=== PATIENT | male | born 1990 | race Caucasian/White ===

== ENCOUNTER 2023-12-28 12:00 | Inpatient (IN) | payer OTHER, SELFPAY ==
[2023-12-26] VITALS (7 sets, daily range): BP systolic 127–170; BP diastolic 88–105; BMI 23.8
[2023-12-26 16:24] LABS: % Basophils 0.5 % (0-2); % Immature Granulocytes 0.1 % (0-0.5); % Lymphocytes 13.7 % (20.5-51.1); % Monocytes 6.5 % (1.7-9.3); % Neutrophils 78.2 % (42.2-75.2); Absolute Eosinophils 0.1 10^3/uL (0-0.7); Absolute Lymphocytes 1.1 10^3/uL (1.2-3.4); Absolute Monocytes 0.5 10^3/uL (0.1-0.6); Absolute Neutrophils 6.1 10^3/uL (1.4-6.5); Hematocrit 45.4 % (39.0-52.0); Hemoglobin 15.9 g/dL (13.0-18.0); Mean Corpuscular Hgb 30.9 pg (27.0-31.0); Mean Corpuscular Volume 88.3 fL (80.0-94.0); Mean Platelet Volume 9.6 fL (7.4-10.4); Nucleated Red Blood Cells % 0 % (-); Platelet Count 210 10^3/uL (130-400); Red Blood Cell Count 5.14 10^6/uL (4.70-6.10); Red Cell Dist. Width 11.9 % (11.5-14.5); White Blood Cell Count 7.8 10^3/uL (4.8-10.8)
[2023-12-26 16:38] LABS: ALT (SGPT) 26 U/L (0-50); AST (SGOT) 29 U/L (17-59); Albumin 4.7 g/dl (3.5-5.0); Alkaline Phosphatase 78 U/L (38-126); Blood Urea Nitrogen 12 mg/dl (9-20); Calcium 9.9 mg/dl (8.4-10.2); Carbon Dioxide 26 mmol/L (22-30); Chloride 101 mmol/L (98-107); Glucose 145 mg/dl (70-99); Magnesium 2.1 mg/dl (1.6-2.3); Potassium 4.1 mmol/L (3.5-5.1); Sodium 137 mmol/L (135-145); Total Bilirubin 0.5 mg/dl (0.2-1.3); Total Protein 7.1 g/dl (6.3-8.2); eGFR > 60.00
[2023-12-26 16:41] LABS: Erythrocyte Sed Rate 1 mm/hour (0-20)
[2023-12-26 17:26] LABS: Vitamin B12 417 pg/ml (239-931)
--- NOTE | 2023-12-26 18:38 | ED.GENMED ---
History of Present Illness
General
Chief Complaint: Numbness
Source: patient, spouse and family
Exam Limitations: none
Time Seen by Provider: 12/26/23 15:05
Nursing documentation reviewed up to this point in time: agreed with
History of Present Illness
History of Present Illness:
Patient is a 33-year-old male with past medical history of psoriasis currently taking monoclonal antibody for this which she has been on for extended period of time. He claims that over the past 10 days he initially noted some paresthesias to his
feet bilaterally slowly progressing up his legs thorax upper extremities and out to his face also has had some intermittent garbled speech over the past few days according to family and patient. Has had some difficulty with ambulation and has felt
some extremity weakness as well. Occasionally feels some short breath as well worsening over the past few days. Denies any specific exposures denies any known tick exposures or insect exposures. Does not drink no drug use. Denies any pesticide
exposures. Denies any chest pain shortness of breath fevers claims that he has had upper respiratory symptoms a few weeks ago.
Past History
Past History
ED Past Medical History: None
ED Past Surgical History: None
Social History
Tobacco: Non-smoker
Alcohol: Occasional
Drug: Marijuana and Cocaine
Personal: Single
Living: with family
Employment: Employed ([employer])
Review of Systems
Review of Systems
Allergies reviewed?: Yes
All Other Systems: ROS reviewed and negative except as documented in HPI and ROS
Phy Exam
Physical Exam
Physical Exam:
GENERAL: Alert , in no apparent distress
EYE: pupils equal and reactive
NECK: Supple, no significant adenopathy.
ENT: o/p clr, mmm.
CARDIAC: Regular rate and rhythm .
LUNGS: Clear breath sounds bilaterally, no acute respiratory distress, no wheezes/rales/rhonchi
ABDOMEN: Soft, without focal tenderness, no r/g, no cvat
NEUROLOGICAL: Alert and oriented, 5 x 5 upper and lower extremity strength of the patient does say that he feels somewhat weaker than usual despite being able to move against resistance. Was able to walk but is somewhat lumbering when doing so.
When palpating legs and arms he claims that they feel symmetrical however feels somewhat less than usual. His speech is somewhat garbled when speaking. No obvious deficits of the cranial nerves.
SKIN: Warm and dry, skin intact.
MUSCULOSKELETAL: No edema, well perfused.
PSYCH: Normal and appropriate interaction.
Course
Orders/Labs/Results
Orders:
Orders
12/26/23 15:52
CT Head W/o Iv Contrast Urgent
Comment:
Reason For Exam: int ext numbness
Cardiac Monitoring- Treatment ONCE
12/26/23 15:53
Electrocardiogram (*1) Stat
Reason for Study: Other
Other Reason for Exam: neuro symptoms
EKG- Treatment ONCE
12/26/23 15:59
Urinalysis Reflex To Culture Urgent
Urine Drug Abuse Screen Urgent
12/26/23 16:08
Add On- LAB Urgent
Tests Added?: B12
12/26/23 16:17
Complete Blood Count/With Diff Urgent
Comprehensive Metabolic Panel Urgent
Erythrocyte Sed Rate Urgent
Lyme Progressive Urgent
Magnesium Urgent
Vitamin B12 Urgent
Comment: ADD ON
12/26/23 18:24
MRI Brain [MR Brain Without Contrast] Routine
Comment:
Reason For Exam: abnormal Ct head
Recent pill cam endoscopy?: Yes
12/26/23 18:45
Admit/Transfer Patient As Directed
Co-Sign Provider:
Level of Care: Observation services
Assign to:: Telemetry
Physician / Group: Vilma
Diagnosis: Diffuse numbness and generalized weakness
Reason for Telemetry: CVA/TIA
Date to Stop Telemetry: 12/29/23
Time to Stop Telemetry: 11:00
12/29/23 11:00
DC Protocol for Telemetry ONCE
Abnormal Lab Results
12/26/23
16:17
Absolute Lymphs (auto) 1.1 L 10^3/uL
(1.2-3.4)
Neutrophils % 78.2 H %
(42.2-75.2)
Lymphocytes % 13.7 L %
(20.5-51.1)
Glucose 145 H mg/dl
(70-99)
12/26/23 16:17
12/26/23 16:17
Vital Signs
Initial and Last Documented VS:
Initial Vital Signs
Temp Pulse Resp BP Pulse Ox
98.9 F 109 18 147/105 98
12/26/23 14:36 12/26/23 14:36 12/26/23 14:36 12/26/23 14:36 12/26/23 14:36
Last Documented Vital Signs
Temp Pulse Resp BP Pulse Ox
98.9 F 79 19 149/93 98
12/26/23 14:36 12/26/23 18:45 12/26/23 18:45 12/26/23 18:00 12/26/23 18:45
MDM/Problems Addressed
MDM/Problems Addressed:
33-year-old male presenting to the emergency department today with concerns of ascending paresthesias over the past 10 days. Now garbled speech. He also feels some degree of weakness though with subtle of the upper and lower extremities. Upon
arrival here vital signs are normal. Patient no obvious distress patient does claim to have decree sensation when palpating bilaterally. Claims to have this all the way up through his face and head. Good reflexes on exam to the patella. Labs are
unremarkable EKG normal head CT showing possible slight decreased attenuation to the anterior left of the left internal capsule. This was discussed with neurology recommending MRI, admission for further assessment.
*Critical Care Note
Total Time (30-74mins, 75-104mins- exclusive of procedures): Not Applicable
ED Attending Note
-
Portions of this chart may have been created with voice recognition software.� Occasional wrong word or��sound alike� substitutions may have occurred due to the inherent limitations of voice recognition software.
Discharge Plan
Departure
Patient Disposition: Admit
Date of Disposition: 12/26/23
Time of Disposition: 18:38
Admit to: Telemetry
Admit to doctor: Annemarie
Presentation/result/management discussed w/ accepting MD/DO: Hospitalist
Patient with high blood pressure during this ER visit?: No
Condition: Good
Covid-19: Not Applicable
Discharge Problem:
Paresthesia
Prescriptions:
No Action
Tremfya 100 mg/mL auto-injector
0 mg SC Q8W
Referrals:
NONE,* [Family Provider] -
Discharge Date and Time
Print Language: DANISH
--- NOTE | 2023-12-26 18:43 | HPS.HSE ---
Family Physician
-
Family Physician: * NONE
Chief Complaint
-
Generalized weakness and diffuse numbness
History of Present Illness
33-year-old male with history of psoriasis getting biological agent every 8 weeks the last time was 3 weeks ago, presented to the hospital complaining of 1 week history of diffuse numbness mostly in the extremities, started the symptoms in the both
feet and ascend proximally gradually without any weakness or any vision change or chest pain shortness of breath or any seizure-like activity or syncope.
Admit overall feels tired and fatigued and progressively getting worse and admit shortness of breath will activity lately, denies any trauma or accident or any head injury,Admits he feels col with no fever or chills.
Admit 3 weeks ago he had upper respiratory tract symptoms without any diarrhea or gastroenteritis.
No sick contacts or recent travel.
Admit smokes occasionally and uses marijuana occasionally.
Accompanied by her parent and girlfriend was okay from his point of view to talk to him in the front of them.
Workup in the ER basically showed no acute abnormality, with a CT brain concerning for questionable old subacute lacunar infarct.
Discussed with the ER physician who discussed with neurology who recommended MRI.
He works in [employer] and denies being exposed to chemicals like herbicides.
Medical History
Past Medical History
Past Medical History: Reports Other
Additional Past Medical History:
Past medical history REVIEWED:
Psoriasis
Social history: He works in [employer] he said he has not been exposed to the chemical or herbicide, smokes occasionally as well as smokes marijuana occasionally, socially drinks alcohol. Denies any other drugs.
Family history: Reviewed and noncontributory
Past Surgical History: Reports Other
Social History
Unable to obtain full social history at this time due to: Other
Family History
Family History: Other
Allergies / Home Medications
Allergies reflects when Allergies were last updated in [facility].
Home Medications with original date entered in [facility]
Allergy/Medication List:
Allergies
Allergy/AdvReac Type Severity Reaction Status Date / Time
No Known Allergies Allergy Verified 12/26/23 16:25
Home Medications
guselkumab 100 mg/mL subcutaneous auto-injector (Tremfya) 0 mg SC Q8W 12/26/23
Review of Systems
-
A 12 point ROS was completed and negative except as noted: Yes
Physical Exam
Vital Signs
Vital Signs
Temp Pulse Resp BP Pulse Ox
98.9 F 64 13 145/88 97
12/26/23 14:36 12/26/23 17:15 12/26/23 17:15 12/26/23 16:47 12/26/23 17:15
Physical exam:
General: Awake, alert and oriented x3, not in distress and holds appropriate conversation.
HEENT: No active discharge, ecchymosis or bruising, moist lips, tongue and mucous membrane.
Eyes: No discharge or red conjunctiva, no nystagmus, pupils are reactive and equal
Neck:Supple, no JVD no bruit no goiter.
Respiratory: Normal AP contour and diameter, normal chest wall movement, normal respiratory effort, no respiratory distress,
Lungs: Good air entry bilaterally, no wheezing or rhonchi, no rales or crackles
Heart: S1, S2 regular, normal rate, no added sound.
Gastrointestinal: Positive bowel sounds, soft, nontender, no guarding or rigidity or organomegaly
Musculoskeletal: , no chest wall abnormality or tenderness. All joints and extremities have good range of motion, no muscle tenderness or any joint swelling or tenderness.
Extremities: No pitting edema, good peripheral pulses, good range of motion
Skin: Warm and dry, no ulceration, normal color.
Neurological: Awake, alert and oriented x3, cranial nerve II-XII grossly intact, speech clear and comprehensive, good muscle tone, normal motor function in all extremities, decreased sensation to touch mostly in upper extremity and legs,
Psychiatric: Normal mood, normal thought and judgment, normal affect,
Physical Exam
General: Other
Rectal: Other
Psych: Other
Laboratory Results
-
12/26/23 16:17
12/26/23 16:17
Laboratory Results
Total Bilirubin 0.5 mg/dl (0.2-1.3) 12/26/23 16:17
AST 29 U/L (17-59) 12/26/23 16:17
ALT 26 U/L (0-50) 12/26/23 16:17
Alkaline Phosphatase 78 U/L (38-126) 12/26/23 16:[address]:
No acute intracranial hemorrhage.
Questionable small focus of slight decreased attenuation in the anterior limb of the left internal capsule. Tiny old lacunar infarct is possible. Evolving/recent/subacute nonhemorrhagic infarct cannot be differentiated.
EKG: Normal sinus rhythm
66, LA 134, QTc 444, normal axis otherwise no acute abnormalities
Data Reviewed
-
CT Scan: Report Reviewed by me, Discussed with Patient and Discussed with Family
Medical Tests (Nuc Med, Echo, EKG etc): Image Personally Visualized and interpreted, Report Reviewed by me and Discussed with Patient
Lab Data: Labs Reviewed by me, Discussed with Patient and Discussed with Family
Old Records: Reviewed
Impression/Plan
-
IMPRESSION:
33-year-old male with history of psoriasis, presented to the hospital with 1 week history of diffuse numbness mostly extremities, started in his feet and ascended proximally, preceded by 2-week will sign and symptom of upper respiratory tract
infection.
Numbness: Extremity doubted stroke specially this is a bilateral and all extremities, lumbar White syndrome could be a possibility while other causes may need to be considered.
Demyelinating disease could be a possibility
Deny exposure to chemical
Tremfya, or Guselkumab, Side effect is possibiltity but unlikely since numbness is not one of the side effect has medication been reviewed
Smoking cigarette and marijuana occasionally
History of psoriasis
Plans:
Close monitoring
Monitor for respiratory signs and symptoms or compromise
MRI of brain ordered by ER per recommendation of neurology
If signs and symptoms not improving and MRI inconclusive then may benefit from lumbar puncture
Check TSH, B12
Get a UDS
Monitor vital sign
I discussed with the patient and family after getting approval from the patient and he was okay to talk to inform of the family
DVT prophylaxis Lovenox
--- NOTE | 2023-12-26 21:00 | PTCARENOTE ---
Received pt from ED, AAOx3. NIH-1 mild aphasia, no complaints of pain. VSS
[2023-12-26 21:57] LABS: Urine Albumin Negative (Neg - Trace); Urine Bilirubin Negative (Negative); Urine Character Clear (Clear); Urine Color Yellow; Urine Glucose Negative (Negative); Urine Ketone Negative (Negative); Urine Leukocyte Negative (Negative); Urine Nitrite Negative (Negative); Urine Occult Blood Negative (Negative); Urine Specific Gravity 1.015 (<1.030); Urine Urobilinogen Negative (Neg - 1+)
[2023-12-26 22:11] LABS: Amphetamines Negative (Negative); Barbiturates Negative (Negative); Benzodiazepines Negative (Negative); Buprenorphine Negative (Negative); Cocaine Negative (Negative); Marijuana Negative (Negative); Methadone Negative (Negative); Methamphetamines Negative (Negative); Opiates Negative (Negative); Phencyclidine Negative (Negative); Tricyclic Antidepressants Negative (Negative)
[2023-12-27] VITALS (9 sets, daily range): BP systolic 118–158; BP diastolic 58–104
[2023-12-27 07:41] LABS: Blood Urea Nitrogen 11 mg/dl (9-20); Calcium 10.1 mg/dl (8.4-10.2); Carbon Dioxide 28 mmol/L (22-30); Chloride 101 mmol/L (98-107); Estimated Creatinine Clearance > 125 ml/min; Glucose 109 mg/dl (70-99); Magnesium 2.2 mg/dl (1.6-2.3); Potassium 4.2 mmol/L (3.5-5.1); Sodium 139 mmol/L (135-145); eGFR > 60.00
[2023-12-27 07:46] LABS: % Basophils 0.5 % (0-2); % Eosinophils 1.2 % (0-6); % Immature Granulocytes 0.3 % (0-0.5); % Lymphocytes 17.9 % (20.5-51.1); % Monocytes 5.8 % (1.7-9.3); % Neutrophils 74.3 % (42.2-75.2); Absolute Eosinophils 0.1 10^3/uL (0-0.7); Absolute Lymphocytes 1.2 10^3/uL (1.2-3.4); Absolute Monocytes 0.4 10^3/uL (0.1-0.6); Absolute Neutrophils 4.9 10^3/uL (1.4-6.5); Hematocrit 44.2 % (39.0-52.0); Hemoglobin 15.5 g/dL (13.0-18.0); Mean Corp Hgb Conc. 35.1 g/dL (33.0-37.0); Mean Corpuscular Hgb 30.5 pg (27.0-31.0); Mean Corpuscular Volume 86.8 fL (80.0-94.0); Mean Platelet Volume 9.7 fL (7.4-10.4); Nucleated Red Blood Cells % 0 % (-); Platelet Count 222 10^3/uL (130-400); Red Blood Cell Count 5.09 10^6/uL (4.70-6.10); Red Cell Dist. Width 12.1 % (11.5-14.5); White Blood Cell Count 6.6 10^3/uL (4.8-10.8)
[2023-12-27 08:09] LABS: TSH 0.69 uIU/ml (0.47-4.68)
[2023-12-27 08:28] LABS: Vitamin B12 412 pg/ml (239-931)
--- NOTE | 2023-12-27 08:32 | PTCARENOTE ---
Sinus tach on nutrition helper while ambulating. HR to 150s. Denies palpitations but admits weakness with ambulation. Self terminating, slowly comes down to baseline at rest. Currently in bed, HR 60s - 70s.
--- NOTE | 2023-12-27 09:30 | W.PN.HOSP.TC ---
Today's Communication/Plan
-
see A/P
upgrade to IMU
Assessment / Plan
Assessment / Plan
HPI: 33-year-old male with history of psoriasis on Tremfya biologic every 8 weeks (the last time was 3 weeks ago), presented to the hospital complaining of 1 week history of diffuse numbness mostly in the extremities.
Symptoms started in both feet and ascend proximally gradually without any weakness. Also no vision change, chest pain/shortness of breath or any seizure-like activity or syncope.
Overall feels tired and fatigued and progressively getting worse with exertional shortness of breath. Denies any trauma or accident or any head injury. Admits he feels cold with no fever or chills.
No sick contacts or recent travel.
Admit smokes occasionally and uses marijuana occasionally.
Workup in the ER basically showed no acute abnormality, with a CT brain concerning for questionable old subacute lacunar infarct.
A/P:
# Numbness of bilateral and all extremities
Demyelinating disease could be a possibility
Monitor for respiratory signs and symptoms or compromise, check VC every 6 hours
Deny exposure to chemical
Check MRI brain
If signs and symptoms not improving and MRI inconclusive then may benefit from lumbar puncture
Follow Lyme serology
Consider EMG
UDS negative
TSH WNL at 0.69
B12 WNL at 400
Neuro CS
Gentle IVF per parent request
# psoriasis
Pt on Tremfya or Guselkumab, numbness is not one of the side effect
# Smoking cigarette and marijuana occasionally
UDS negative
DVT prophylaxis Lovenox
DW parents
DW RN
Anticipated Discharge: 24 - 48 hours
Subjective/Interval History
-
Date of Service: December 27, 2023
Objective Data
-
Labs:
Laboratory Results
12/27/23
07:07
WBC 6.6
Hgb 15.5
Hct 44.2
Plt Count 222
Sodium 139
Potassium 4.2
Chloride 101
Carbon Dioxide 28
BUN 11
Creatinine 0.7
Glucose 109 H
Calcium 10.1
Vital Signs:
Vital Signs
Temp Pulse Resp BP Pulse Ox
36.3 C 70 14 154/98 98
12/27/23 07:30 12/27/23 07:30 12/27/23 07:30 12/27/23 07:30 12/27/23 07:59
I&O
12/26/23 12/27/23 12/28/23
06:59 06:59 06:59
Intake Total 480 / 480
Balance 480 / 480
Review of Systems
-
Neuro: Reports Numbness (BL LE and BL UE)
Physical Exam
-
General: Well Developed, Well Nourished, No Apparent Distress, Comfortable and Conversant; Negative Respiratory Distress
HEENT: Normocephalic, Atraumatic, Nose Appears Normal and Ears Appear Normal; Negative Oxygen
Respiratory: Clear to Auscultation and Non Labored Respirations; Negative Accessory Resp Muscle Use
Cardiac: Regular Rhythm and S1/S2
GI: Soft, Nontender, Nondistended and Normal Bowel Sounds
Skin: Warm and Dry
Neuro: Awake, Alert, Oriented and Other (reflex intact)
Psych: Calm and Intact Judgement/Insight
Data Reviewed
-
CT Scan: Report Reviewed by me
Labs: Labs Reviewed by me
[2023-12-27] MEDS: ATIVAN 1 MG IV (09:48)
--- NOTE | 2023-12-27 11:32 | CON.NEURO4 ---
Consultation - Neurology 4
-
CONSULTING PHYSICIAN: Robert Torre MD
REFERRING PHYSICIAN: Hospitalist
DICTATED BY: Robert Torre
DATE/TIME OF REQUEST: 12/26/2023
DATE/TIME OF CONSULTATION: 12/27/2023 1130
Reason for Consultation: Numbness
History of Present Illness:
This is a 33 year old right handed male who has presented to the hospital with numbness fatigue and slurred speech. He gives a h/o psoriasis. Patient's symptoms began 9-10 days ago. At that his legs felt unsteady but he was able to stand & walk. He
was able to carry out his ADLs through the week. Yesterday he was unsteady with numbness in his legs with slurred speech.
No h/o head or neck injuries. No flu like symptoms. No cough cold or sore throat. No head aches numbness of face.
No difficulty swallowing
-
Past Medical History: Psoriasis
Surgical History: None
Family History: [place]
Social History: Lives at home with his family
Allergies: NKA
Home Medications: Tremfya
Review of Symptoms:
Patient denies any fever, headache, chest pain, shortness of breath, GI or symptoms.
�Per the HPI.�All systems are reviewed negative except above.
�-
Vital Signs:
Physical Exam:
The patient is afebrile, heart sounds S1 and S2 are regular , and chest is clear to auscultation bilaterally.
Head/Neck: NCAT, EOMI CHANTEL
Neurologic Examination:
The patient is awake, alert and oriented x 3. (Heis able to follow commands and answer questions appropriately. There is no aphasia or dysarthria. On cranial nerve assessment, pupils are 3 mm bilateral, round and reactive to light and
accommodation. Visual caballero are full. Extraocular movements are intact. Facial sensations are intact and bilaterally symmetrical, there is no facial asymmetry. Hearing is intact bilaterally to normal conversation volume. Tongue palate and uvula
are midline. Sternocleidomastoid strengths are full bilaterally.
Motor strengths are 4/5 bilateral upper and lower extremities on medical research [place] scale. There is no drift or involuntary movement noted. Deep tendon reflexes are 2+ bilateral upper and lower extremities and Babinski is absent bilaterally.
Sensations of pain, touch, temperature and vibration are decreased and bilaterally symmetrical. There was no extinction noted on double simultaneous stimulation. Coordination is intact by finger to nose bilaterally.
Rombergs positive. Gait is unstable
Lab Results:
Neuro Imaging: MRI reveals extensive demyelination bilaterally supra and infra tentorial
Impression:
Mr. RAHAT LUDWIG is a 33 year old M who has presented to the hospital with new onset of numbness in his extremities ataxia and slurred speech with MRI findings of ADEM.
Recommendations:
1. IV Solumedrol 1000mg daily x 7days
2. MRI Cervical & Thoracic Spine
3. PT/OT
4. Lumbar puncture for Oligoclonal bands and Myelin basic protein
Discussed patient care with: Hospitalist
Total Time Spent with Patient (in minutes): 30
Vital Signs and Labs
-
Vital Signs and Labs:
Vital Signs
Temp Pulse Resp BP Pulse Ox
36.3 C 70 14 154/98 98
12/27/23 07:30 12/27/23 07:30 12/27/23 07:30 12/27/23 07:30 12/27/23 12:21
Lab Results
12/27/23 07:07
12/27/23 07:07
Sodium 139 mmol/L (135-145) 12/27/23 07:07
Potassium 4.2 mmol/L (3.5-5.1) 12/27/23 07:07
BUN 11 mg/dl (9-20) 12/27/23 07:07
Glucose 109 mg/dl (70-99) H 12/27/23 07:07
Calcium 10.1 mg/dl (8.4-10.2) 12/27/23 07:07
Vitamin B12 412 pg/ml (239-931) 12/27/23 07:07
Ur Buprenorphine Negative (Negative) 12/26/23 21:47
[2023-12-27] MEDS: NSS 1000 IV (11:50)
--- NOTE | 2023-12-27 12:28 | RESPNOTE ---
Vital capacity 2.4 L with good patient effort.
[2023-12-27 12:35] LABS: Glucose - Point of Care 104 mg/dl (70-99)
[2023-12-27] MEDS: NOVOLOG FLEXPEN-LOW RESISTANCE SC ×2 (12:35→16:38)
--- NOTE | 2023-12-27 13:01 | PTCARENOTE ---
Received pt from via stretcher. Pt presents with increasing numbness and weakness in all extremities. AAOx3. Pt seen by Neuro, concern for possible MS. Pt currently off floor for additional imaging. IVF and IV Solumedrol initiated. Family at
bedside. Emotional support provided as needed. Pt scheduled for LP tomorrow. Will continue to monitor through shift.
[2023-12-27] MEDS: PEPCID 20 MG IV ×2 (14:17→20:55)
[2023-12-27] MEDS: SOLU-MEDROL 258 MG IV (14:17)
[2023-12-27] MEDS: ROCEPHIN 1000 MG IV (14:18)
[2023-12-27] MEDS: STERILE WATER FOR INJECTION 10 ML IV (14:18)
[2023-12-27 15:07] LABS: Glucose - Point of Care 151 mg/dl (70-99)
--- NOTE | 2023-12-27 20:50 | W.PN.UPDATE ---
Update Note
Progress Note Update
Assessment /Plan: Acute Disseminated Encephalomyelitis.
Plan:IV Acyclovir 10mg/kg Q 8hourly
No Lovenox or Heparin till 24 hours following Lumbar puncture
[2023-12-27] MEDS: ZOVIRAX INJECTION 266 MG IV (21:18)
[2023-12-27 21:21] LABS: Glucose - Point of Care 224 mg/dl (70-99)
[2023-12-27] MEDS: MELATONIN 5 MG PO (23:07)
[2023-12-28] VITALS (20 sets, daily range): BP systolic 78–158; BP diastolic 62–120; PULSE 98–102; O2SAT 96–98
--- NOTE | 2023-12-28 03:35 | PTCARENOTE ---
Pt HR to 120's-130's with ambulation, denies palpitations. Pt having numbness b/l upper and lower extremities, pt states 'it is same as it has been'. Pt requesting something to help with sleep. Raoul EMBEDDED SYSTEMS DESIGNER made aware, melatonin ordered. Pt had no other
complaints at that time. Assessment care and vitals as charted,
[2023-12-28] MEDS: NSS 1000 IV (04:08)
[2023-12-28] MEDS: ZOVIRAX INJECTION 266 MG IV (04:09)
[2023-12-28 04:36] LABS: Hemoglobin 15.8 g/dL (13.0-18.0); Mean Corp Hgb Conc. 34.3 g/dL (33.0-37.0); Mean Corpuscular Hgb 30.4 pg (27.0-31.0); Mean Corpuscular Volume 88.5 fL (80.0-94.0); Mean Platelet Volume 10.1 fL (7.4-10.4); Platelet Count 234 10^3/uL (130-400); Red Cell Dist. Width 11.9 % (11.5-14.5); White Blood Cell Count 11.9 10^3/uL (4.8-10.8)
[2023-12-28 04:59] LABS: Blood Urea Nitrogen 9 mg/dl (9-20); Calcium 10.2 mg/dl (8.4-10.2); Carbon Dioxide 23 mmol/L (22-30); Chloride 104 mmol/L (98-107); Estimated Creatinine Clearance > 125 ml/min; Glucose 176 mg/dl (70-99); Potassium 4.4 mmol/L (3.5-5.1); Sodium 137 mmol/L (135-145); eGFR > 60.00
[2023-12-28 08:04] LABS: Glycohemoglobin (HgbA1c) 5.4 % (4.0-5.6)
--- NOTE | 2023-12-28 08:31 | W.PN.HOSP.TC ---
Today's Communication/Plan
-
Continue IV steroids
Vitamin B12
Lumbar Puncture
Assessment / Plan
Assessment / Plan
Physical Exam
General: Well Developed, Well Nourished, No Apparent Distress, Comfortable and Conversant; Negative Respiratory Distress
HEENT: Normocephalic, Atraumatic, Nose Appears Normal and Ears Appear Normal; Negative Oxygen
Respiratory: Clear to Auscultation and Non Labored Respirations; Negative Accessory Resp Muscle Use
Cardiac: Regular Rhythm and S1/S2
GI: Soft, Nontender, Nondistended and Normal Bowel Sounds
Skin: Warm and Dry
Neuro: Awake, Alert, Oriented and Other (reflex intact)
Psych: Calm and Intact Judgement/Insight
Assessment/Plan
HPI: 33-year-old male with history of psoriasis on Tremfya biologic every 8 weeks (the last time was 3 weeks ago), presented to the hospital complaining of 1 week history of diffuse numbness mostly in the extremities.
Symptoms started in both feet and ascend proximally gradually without any weakness. Also no vision change, chest pain/shortness of breath or any seizure-like activity or syncope.
Overall feels tired and fatigued and progressively getting worse with exertional shortness of breath. Denies any trauma or accident or any head injury. Admits he feels cold with no fever or chills.
No sick contacts or recent travel.
Admit smokes occasionally and uses marijuana occasionally.
Workup in the ER basically showed no acute abnormality, with a CT brain concerning for questionable old subacute lacunar infarct.
A/P:
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 Multiple Sclerosis
Demyelinating disease could be a possibility
Monitor for respiratory signs and symptoms or compromise, check VC every 6 hours
Deny exposure to chemical
Continue methylprednisolone for 5 doses
Continue to check additional possible etiologies for the patient's symptomatology by means of blood work
Follow lumbar puncture results
Follow Lyme serology
Consider EMG
UDS negative
TSH WNL at 0.69
B12 WNL at 400
Neuro CS
Vitamin B12 replacement
# psoriasis
Pt on Tremfya or Guselkumab
# Smoking cigarette and marijuana occasionally
UDS negative
DVT prophylaxis SCDs (patient refused Lovenox)
Anticipated Discharge: > 48 hours
Subjective/Interval History
-
Date of Service: December 28, 2023
Patient was seen and examined. He is able to swallow okay, speech is slightly better, he can move his arms and legs, and his coughing ability is better.
Objective Data
-
Labs:
Laboratory Results
12/28/23
04:20
WBC 11.9 H
Hgb 15.8
Hct 46.0
Plt Count 234
Sodium 137
Potassium 4.4
Chloride 104
Carbon Dioxide 23
BUN 9
Creatinine 0.6 L
Glucose 176 H
Calcium 10.2
Vital Signs:
Vital Signs
Temp Pulse Resp BP Pulse Ox
97.9 F 101 22 125/77 96
12/28/23 05:48 12/28/23 06:00 12/28/23 06:00 12/28/23 06:00 12/28/23 04:00
I&O
12/27/23 12/28/23 12/29/23
06:59 06:59 06:59
Intake Total 480 / 480 3815 / 3815
Balance 480 / 480 3815 / 3815
[2023-12-28 09:06] LABS: Glucose - Point of Care 108 mg/dl (70-99)
[2023-12-28] MEDS: NOVOLOG FLEXPEN-LOW RESISTANCE SC ×3 (09:08→18:49)
[2023-12-28] MEDS: PEPCID 20 MG IV ×2 (09:11→19:52)
--- NOTE | 2023-12-28 10:06 | W.PN.NEURO.1 ---
Today's Communication / Plan
-
Continue methylprednisolone for 5 doses
Continue to check additional possible etiologies for the patient's symptomatology by means of blood work
We will follow lumbar puncture results
Reviewed at length prognosis with regards to outcomes and potential medication choice making
Start B12 replacement due to marginally low levels
Neuro Assessment/Plan
Assessment
IMPRESSIONS/RECOMMENDATIONS:
Abrupt change in generalized numbness, unsteadiness, and speech changes
Most likely due to an acute demyelinating illness. The patient experienced a mild upper respiratory tract illness approximately 2 weeks prior to development of generalized symptoms leaving the possibility of acute disseminating encephalomyelitis.
Based on the nature of the lesions, timeframe, a stronger possibility is multiple sclerosis
Plan
Continue methylprednisolone for 5 doses
Continue to check additional possible etiologies for the patient's symptomatology by means of blood work
We will follow lumbar puncture results
Reviewed at length prognosis with regards to outcomes and potential medication choice making
Start B12 replacement due to marginally low levels
Will continue to follow patient. Thank you.
Subjective/Objective
Subjective Data
Date of Service: December 28, 2023
Continued symptoms. No change from uye.
Objective Data
Vital Signs
Temp Pulse Resp BP Pulse Ox
36.6 C 101 22 125/77 96
12/28/23 05:48 12/28/23 06:00 12/28/23 06:00 12/28/23 06:00 12/28/23 04:00
Lab Results
12/28/23 04:20
12/28/23 04:20
PT Cancelled 12/28/23 09:09
INR Cancelled 12/28/23 09:09
Sodium 137 mmol/L (135-145) 12/28/23 04:20
Potassium 4.4 mmol/L (3.5-5.1) 12/28/23 04:20
BUN 9 mg/dl (9-20) 12/28/23 04:20
Glucose 176 mg/dl (70-99) H 12/28/23 04:20
Calcium 10.2 mg/dl (8.4-10.2) 12/28/23 04:20
Vitamin B12 412 pg/ml (239-931) 12/27/23 07:07
Ur Buprenorphine Negative (Negative) 12/26/23 21:47
Patient Allergies
No Known Allergies Allergy (Verified 12/26/23 16:25)
Review of Systems
-
History Source: Patient
All other systems: Reviewed and negative
EENT: Negative Decreased Vision or Swallowing Difficulty
Respiratory: Trouble Breathing
Cardiac: Negative Chest Pain
Abdomen/GI: Negative Incontinence of Stool
Genitourinary: Negative Incontinence
Musculoskeletal: Negative Back Pain or Neck Pain
Neuro: Dizzy (with standing); Negative Headache
Physical Exam
-
General: No Apparent Distress and Appears Stated Age
Eyes: Round OU, [place] Conjunctivae and No Ptosis
HEENT: Anicteric and Moist Mucous Membranes
Neck: Full Range of Motion
Respiratory: No Dyspnea
Cardiac: No JVD
GI: Non-distended
Skin: Unremarkable
Extremities: No Clubbing, No Cyanosis and No Edema
Psych: Intact Judgement/Insight
Extended Neurological Exam
Mood & Affect: Mood Unremarkable and Affect Unremarkable
Attention Span & Concentration: Awake, Alert and Interactive
Memory: Unremarkable
Tremor: Hand Tremor Absent and Head Tremor Absent
Speech: Quantity Unremarkable and Dysarthric (Mildly)
Cranial Nerve II: Left Eye: Pupillary Size Unremarkable and Visual Vázquez Intact
Cranial Nerve II: Right Eye: Pupillary Size Unremarkable and Visual Vázquez Intact
Cranial Nerves III, IV, : Extraocular Movement: Grossly Intact
Cranial Nerve VII: Facial Symmetry: Normal Facial Symmetry
Cranial Nerve VIII: Hearing: Unremarkable Hearing to Normal Conversational Volume
Muscle Strength, Overall: Spontaneously Moves
Muscle Bulk & Tone: Bulk Unremarkable
Coordination: Reaches for Objects without Difficulty
Data Reviewed
-
Labs: Report Reviewed
Reviewed with: Physician, Nurse Practioner, Patient and Family
Old Records: Summarized
Past History
Past History
ED Past Medical History: None
ED Past Surgical History: None
Social History
Tobacco: Non-smoker
Alcohol: Occasional
Drug: Marijuana and Cocaine
Personal: Single
Living: with family
Employment: Employed ([employer])
Family History
Family History: Other (Reviewed and non-contributory)
Medications
-
Medications:
Generic Name Dose Route Start Last Admin
Trade Name Freq PRN Reason Stop Dose Admin
Acetaminophen 650 mg 12/26/23 20:13
Acetaminophen 325 Mg Tablet PO 01/23/24 20:12
Q4HPRN PRN
mild pain/DENNIS/temp> 100.4F
Bisacodyl 10 mg 12/26/23 20:13
Bisacodyl 10 Mg Rectal Suppository RECTAL 01/23/24 20:12
[id number] PRN
constipation
Cyanocobalamin 1,000 mcg 12/28/23 12:00
Cyanocobalamin 1,000 Mcg Tablet PO 01/25/24 11:59
DAILY JULIETA
Dextrose 12.5 grams 12/27/23 11:29
Dextrose 50% (0.5 Grams/Ml) 50 Ml Syringe IV 01/24/24 11:28
[id number] PRN
hypoglycemia
Protocol
Famotidine 20 mg 12/27/23 11:30 12/28/23 09:11
Famotidine 20 Mg/2 Ml Vial IV 01/24/24 11:29 20 mg
Q12 JULIETA Administration
Glucagon 1 mg 12/27/23 11:29
Glucagon 1 Mg Vial IM 01/24/24 11:28
PRN PRN
hypoglycemia
Protocol
Sodium Chloride 1,000 mls @ 60 mls/hr 12/27/23 10:00 12/28/23 04:08
Nss IV 1,000 mls
.[id number] JULIETA Administration
Methylprednisolone Sodium 258 mls @ 258 mls/hr 12/27/23 12:00 12/27/23 14:17
Succinate 1,000 mg/ Sodium IV 12/31/23 12:59 258 mls
Chloride Q24H JULIETA Administration
Insulin Aspart 0 units 12/27/23 11:30 12/28/23 09:08
Insulin Aspart Low Resistance 300 Units/3 Ml Pen.Injctr SC 01/24/24 11:29 Not Given
AC JULIETA
Protocol
Polyethylene Glycol 17 grams 12/26/23 20:13
Polyethylene Glycol Powder 17 Grams Packet PO 01/23/24 20:12
DAILYPRN PRN
constipation
Senna/Docusate Sodium 1 tablet 12/26/23 20:13
Docusate W/Senna (Paige-Colace) Tablet PO 01/23/24 20:12
BIDPRN PRN
constipation
Sodium Chloride 0 flush 12/26/23 21:00
Sodium Chloride 0.9% (Flush) Syringe IV 01/23/24 20:59
PER PROTOCOL JULIETA
Sodium Chloride 0.5 ml 12/27/23 09:45
Nss (Pf) 10 Ml Vial For Ativan 1 Mg Dose IV 01/24/24 09:44
0945 PRN
IV LORAZEPAM DILUTION
[2023-12-28 11:02] LABS: Vitamin D, 25-OH*** 35.2 ng/mL (30-80)
--- NOTE | 2023-12-28 11:37 | PTCARENOTE ---
Assumed care of pt from night RN, pt AAOx3, makes needs known. Pt verbalizes slight improvement with numbness, still in all extremities. PT/INR to be redrawn. Pt for LP today after PT/INR results. Girlfriend at bedside who is a RN. Will continue to
monitor through shift.
--- NOTE | 2023-12-28 12:00 | PTOTSP ---
Speech Language Pathology
Pt seen for speech evaluation. Mild-mod hyperkinetic dysarthria noted. Rapid rate of speech negatively impacted intelligibility. 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 Hoarse vocal quality noted with increased
hoarseness as verbalizations progressed. Once pt cleared his throat, improvement noted in voicing. Jitter also consistently noted. Pt was 90% intelligible in known contexts, 80% in unknown contexts.
Pt also seen for clinical bedside swallow evaluation. P.O. trials of puree, regular solids, and thin liquids provided. Slightly prolonged mastication noted but this was functional given additional time. No overt signs of aspiration. However, pt
with lesion in medulla. Would benefit from VSE once additional more urgent medical testing completed.
Recommend:
(1) Continue regular solids/thin liquids
(2) General aspiration precautions
(3) Meds as tolerated
(4) VSE in the near future
(5) PHOTOLITH OPERATOR to continue to follow
[2023-12-28 12:07] LABS: INR 1.02; PT 13.2 Sec (11.4-14.6)
[2023-12-28] MEDS: SOLU-MEDROL 258 MG IV (12:25)
[2023-12-28] MEDS: VITAMIN B-12 1000 MCG PO (12:26)
[2023-12-28 13:30] LABS: Glucose - Point of Care 119 mg/dl (70-99)
[2023-12-28 18:28] LABS: Spinal Fluid Glucose 86 mg/dl (40-70); Spinal Fluid Protein 65 mg/dl (12-60)
[2023-12-28 18:33] LABS: Glucose - Point of Care 135 mg/dl (70-99)
[2023-12-28 18:34] LABS: CSF Clarity Clear; CSF Color Colorless; CSF Tube # 4; Red Cell Count/CSF 4 mm^3
[2023-12-28 18:37] LABS: White Cell Count/CSF 21 mm^3 (0-5)
[2023-12-28 18:53] LABS: Spinal Fluid Granulocytes 0 %; Spinal Fluid Lymphocytes 92 %; Spinal Fluid Macrophages 8 %
--- NOTE | 2023-12-28 19:17 | PTCARENOTE ---
Pt returned from IR s/p lumbar puncture, compliant with laying flat. LP site CDI, no signs of bleeding or swelling. Pt verbalizes no pain. Emotional support given to family as they seem overwhelmed with situation. Will report off to night RN.
[2023-12-28 21:43] LABS: Glucose - Point of Care 145 mg/dl (70-99)
[2023-12-29] VITALS (18 sets, daily range): BP systolic 112–148; BP diastolic 76–103; PULSE 63–98; O2SAT 97
[2023-12-29 05:07] LABS: % Basophils 0.1 % (0-2); % Immature Granulocytes 1.2 % (0-0.5); % Lymphocytes 2.5 % (20.5-51.1); % Monocytes 3.5 % (1.7-9.3); % Neutrophils 92.7 % (42.2-75.2); Absolute Immature Granulocytes 0.3 10^3/uL (0-0.05); Absolute Lymphocytes 0.6 10^3/uL (1.2-3.4); Absolute Monocytes 0.9 10^3/uL (0.1-0.6); Absolute Neutrophils 22.7 10^3/uL (1.4-6.5); Hematocrit 41.9 % (39.0-52.0); Hemoglobin 14.8 g/dL (13.0-18.0); Mean Corp Hgb Conc. 35.3 g/dL (33.0-37.0); Mean Corpuscular Hgb 30.5 pg (27.0-31.0); Mean Corpuscular Volume 86.4 fL (80.0-94.0); Mean Platelet Volume 10.1 fL (7.4-10.4); Nucleated Red Blood Cells % 0 % (-); Platelet Count 253 10^3/uL (130-400); Red Blood Cell Count 4.85 10^6/uL (4.70-6.10); Red Cell Dist. Width 12.3 % (11.5-14.5); White Blood Cell Count 24.5 10^3/uL (4.8-10.8)
[2023-12-29 05:30] LABS: Blood Urea Nitrogen 15 mg/dl (9-20); Calcium 10.2 mg/dl (8.4-10.2); Carbon Dioxide 28 mmol/L (22-30); Chloride 102 mmol/L (98-107); Estimated Creatinine Clearance > 125 ml/min; Glucose 131 mg/dl (70-99); Potassium 4.3 mmol/L (3.5-5.1); Sodium 138 mmol/L (135-145); eGFR > 60.00
[2023-12-29] MEDS: PEPCID 20 MG IV (08:02)
[2023-12-29] MEDS: VITAMIN B-12 1000 MCG PO (08:02)
[2023-12-29] MEDS: NOVOLOG FLEXPEN-LOW RESISTANCE SC ×2 (08:06→12:37)
[2023-12-29 08:15] LABS: Glucose - Point of Care 104 mg/dl (70-99)
--- NOTE | 2023-12-29 10:22 | W.PN.NEURO.1 ---
Today's Communication / Plan
-
Continue methylprednisolone for 5 doses, patient has received 2 doses with the third dose on 12/29/2023
Continue to check additional possible etiologies for the patient's symptomatology by means of blood work
We will follow lumbar puncture results
Reviewed at length prognosis with regards to outcomes and potential medication choice making
Started B12 replacement due to marginally low levels
Neuro Assessment/Plan
Assessment
IMPRESSIONS/RECOMMENDATIONS:
Abrupt change in generalized numbness, unsteadiness, and speech changes
Most likely due to an acute demyelinating illness. The patient experienced a mild upper respiratory tract illness approximately 2 weeks prior to development of generalized symptoms leaving the possibility of acute disseminating encephalomyelitis.
Based on the nature of the lesions, timeframe, and mildly elevated WBC count, a lesser possibility is multiple sclerosis
Plan
Continue methylprednisolone for 5 doses, patient has received 2 doses with the third dose on 12/29/2023
Continue to check additional possible etiologies for the patient's symptomatology by means of blood work
We will follow lumbar puncture results
Reviewed at length prognosis with regards to outcomes and potential medication choice making
Started B12 replacement due to marginally low levels
Will continue to follow patient. Thank you.
Subjective/Objective
Subjective Data
Date of Service: December 29, 2023
Continued symptoms. Improved.
Objective Data
Vital Signs
Temp Pulse Resp BP Pulse Ox
36.7 C 89 21 158/67 97
12/29/23 07:50 12/28/23 18:06 12/28/23 18:06 12/28/23 18:06 12/28/23 18:06
Lab Results
12/29/23 04:23
12/29/23 04:23
PT 13.2 Sec (11.4-14.6) 12/28/23 11:42
INR 1.02 12/28/23 11:42
Sodium 138 mmol/L (135-145) 12/29/23 04:23
Potassium 4.3 mmol/L (3.5-5.1) 12/29/23 04:23
BUN 15 mg/dl (9-20) 12/29/23 04:23
Glucose 131 mg/dl (70-99) H 12/29/23 04:23
Calcium 10.2 mg/dl (8.4-10.2) 12/29/23 04:23
Vitamin B12 412 pg/ml (239-931) 12/27/23 07:07
Ur Buprenorphine Negative (Negative) 12/26/23 21:47
Patient Allergies
No Known Allergies Allergy (Verified 12/26/23 16:25)
Review of Systems
-
History Source: Patient
All other systems: Reviewed and negative
Neuro: Dizzy
Physical Exam
-
General: No Apparent Distress and Appears Stated Age
Eyes: Round OU, [place] Conjunctivae and No Ptosis
HEENT: Anicteric and Moist Mucous Membranes
Neck: Full Range of Motion
Respiratory: No Dyspnea
Cardiac: No JVD
GI: Non-distended
Skin: Unremarkable
Extremities: No Clubbing, No Cyanosis and No Edema
Psych: Intact Judgement/Insight
Extended Neurological Exam
Mood & Affect: Mood Unremarkable and Affect Unremarkable
Attention Span & Concentration: Awake, Alert, Interactive and No Difficulty with 2 Step Request
Memory: Unremarkable
Tremor: Hand Tremor Absent and Head Tremor Absent
Speech: Quantity Unremarkable and Dysarthric (Mildly)
Cranial Nerve II: Left Eye: Pupillary Size Unremarkable and Visual Vázquez Intact
Cranial Nerve II: Right Eye: Pupillary Size Unremarkable and Visual Vázquez Intact
Cranial Nerves III, IV, : Extraocular Movement: Grossly Intact
Cranial Nerve VII: Facial Symmetry: Normal Facial Symmetry
Cranial Nerve VIII: Hearing: Unremarkable Hearing to Normal Conversational Volume
Muscle Strength, Overall: Spontaneously Moves
Muscle Bulk & Tone: Bulk Unremarkable
Coordination: Reaches for Objects without Difficulty
Gait & Station: Wide Based
Data Reviewed
-
Labs: Pending and Report Reviewed
Reviewed with: Physician, Nurse Practioner, Patient and Family
Old Records: Summarized
[2023-12-29 11:20] LABS: Glucose - Point of Care 104 mg/dl (70-99)
--- NOTE | 2023-12-29 12:03 | CM ---
Addendum entered by Alta Sanchez 12/29/23 16:02:
Bedside visit per pt request
Plan for dc to [facility] today- accepted and bed available
Pt concerned as he has no OON benefits and [facility] is out of network
Also noted per his insurance, coverage available for acute transfer if medically needed and urgent
He would like to proceed with plan to transfer to [facility]
CM did not make him aware that per Nathan, prior auth is not required for this transfer
Discharge Disposition -transfer to [facility]
Addendum entered by Alta Sanchez 12/29/23 13:07:
Call with [facility] [phone]
Pt has been accepted for transfer and awaiting bed
Confirmed with [facility] that auth is not required for transfer
Original Note:
CM met with pt, mother, father, sister and girlfriend/Gisselle bedside
Pt resides with his parents in a 2SH with 2STE
Full flight to 2nd floor
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
PCP- none, pt has initial appt scheduled with [facility]/Beatriz Kendrick CENTRAL OFFICE EQUIPMENT ENGINEER on 01/14
Rx- [facility]
Discussion with Dr. Antonio- looking into transferring to [facility]
If pt remains at and not transferred to [facility], he would like inpatient rehab to be set up at [facility]
Aware of role of PMR and [employer] prior auth for inpatient rehab care
CM will continue to follow for dc planning
Discharge Disposition- transfer to [facility] vs acute rehab
[2023-12-29] MEDS: SOLU-MEDROL 258 MG IV (12:13)
[2023-12-29] MEDS: COMPAZINE 10 MG PO (13:41)
[2023-12-29 13:47] LABS: Lyme Antibody Screen, EIA Negative (Negative)
--- NOTE | 2023-12-29 14:35 | PTCARENOTE ---
Rec'd pt this AM. Reports symptoms of left sided parasthesia have not improved, feels dizzy and weak when OOB. Able to walk halls with PT/OT with min assist. Family at bedside. Will be transferred to [facility] at 1800.
--- NOTE | 2023-12-29 16:20 | W.PN.HOSP.TC ---
Addendum entered and electronically signed by Favio Antonio MD 12/29/23 18:42:
Transfer cancelled as patient's insurance will not cover [facility]. I spoke to skilled nursing case manager Lissette King and she will look into and see if [facility] hospitalization will be covered if he were to go to [facility].
Addendum entered and electronically signed by Favio Antonio MD 12/29/23 18:00:
I also advised patient and his family that if they do not want patient to be transferred because of potential financial costs and expenses, that they can refuse transfer/refuse discharge to [facility] prior to actual transfer if that is what they
want.
Original Note:
Today's Communication/Plan
-
I spoke with neurology team Dr. Mercedes at [facility] today, Dr. Whitmore and neurology team have accepted the patient for transfer to [facility] today.
Assessment / Plan
Assessment / Plan
Physical Exam
General: Not in acute distress
HEENT: Normocephalic, Atraumatic
Respiratory: Clear to Auscultation Bilaterally
Cardiac: Regular Rhythm and S1/S2
GI: Soft, Nontender, Nondistended and Normal Bowel Sounds
Skin: Warm and Dry
Neuro: Awake, Alert, Oriented x3. Mild Dysarthria. Cranial Nerves grossly intact. Muscle strength grossly intact bilaterally although gait is unsteady.
Psych: Calm and Intact Judgement/Insight
Assessment/Plan
HPI: 33-year-old male with history of psoriasis on Tremfya biologic every 8 weeks (the last time was 3 weeks ago), presented to the hospital complaining of 1 week history of diffuse numbness mostly in the extremities.
Symptoms started in both feet and ascend proximally gradually without any weakness. Also no vision change, chest pain/shortness of breath or any seizure-like activity or syncope.
Overall feels tired and fatigued and progressively getting worse with exertional shortness of breath. Denies any trauma or accident or any head injury. Admits he feels cold with no fever or chills.
No sick contacts or recent travel.
Admit smokes occasionally and uses marijuana occasionally.
Workup in the ER basically showed no acute abnormality, with a CT brain concerning for questionable old subacute lacunar infarct.
A/P:
# Numbness of bilateral and all extremities - most likely due to an acute demyelinating illness with history of mild URI 2 weeks MACHINE I COREMAKER - acute disseminating encephalomyelitis vs. Multiple Sclerosis
Continue methylprednisolone for 5 doses
Continue to check additional possible etiologies for the patient's symptomatology by means of blood work
Follow lumbar puncture results -- NMO/Mog/Aquaporin 4 added by neurology as per neurology
Follow Lyme serology
UDS negative
TSH WNL at 0.69
B12 WNL at 400
Neurology consulted, recommendations, appreciated
Vitamin B12 replacement as recommended by neurology
I spoke with neurology team Dr. Mercedes at [facility] today, Dr. Whitmore and neurology team have accepted the patient for transfer to [facility] today.
# psoriasis
Pt on Tremfya or Guselkumab
# Smoking cigarette and marijuana occasionally
UDS negative
DVT prophylaxis SCDs (patient refused Lovenox)
More than 30 minutes spent in discharge including
Final examination of the patient
Summarizing hospital stay
Instructions for continuing care to all relevant caregivers
Preparation of discharge records, prescriptions, and referral forms
Total time spent (in minutes): 50
Anticipated Discharge: Today
Subjective/Interval History
-
Date of Service: December 29, 2023
Patient was seen and examined. He reported that he is still unsteady on his feet.
Objective Data
-
Labs:
Laboratory Results
12/29/23
04:23
WBC 24.5 H
Hgb 14.8
Hct 41.9
Plt Count 253
Sodium 138
Potassium 4.3
Chloride 102
Carbon Dioxide 28
BUN 15
Creatinine 0.7
Glucose 131 H
Calcium 10.2
Vital Signs:
Vital Signs
Temp Pulse Resp BP Pulse Ox
98.0 F 89 19 148/89 97
12/29/23 07:50 12/29/23 16:00 12/29/23 16:00 12/29/23 16:00 12/29/23 16:00
I&O
12/28/23 12/29/23 12/30/23
06:59 06:59 06:59
Intake Total 3815 / 3815
Balance 3815 / 3815
[2023-12-29 17:37] LABS: Glucose - Point of Care 162 mg/dl (70-99)
[2023-12-29] MEDS: NOVOLOG FLEXPEN-LOW RESISTANCE 1 UNITS SC (18:04)
--- NOTE | 2023-12-29 18:41 | CM ---
Call placed to [facility] due to documentation that pt/family concerned it was out of network with his insurance and they had financial concerns , spoke with Av. Per Av transfer has already been cancelled due to
insurance/financial concerns. Call to Supply Chain Analyst in IMU, was updated that patient's girlfriend called his insurance and was told that transport to [facility] would be covered but not the stay at [facility] itself, therefore pt/family requested
transfer be cancelled. According to Supply Chain Analyst Pt/family may look into possible being transferred to [facility] if they are in Network with his insurance. Update to Hospitalist
[2023-12-29] MEDS: PEPCID 20 MG PO (20:37)
[2023-12-29 21:29] LABS: Glucose - Point of Care 160 mg/dl (70-99)
[2023-12-30] VITALS (21 sets, daily range): BP systolic 117–162; BP diastolic 72–115; PULSE 62; O2SAT 98
[2023-12-30 02:54] LABS: ANA, IgG Reflex to HEp-2 None Detected (None Detected)
[2023-12-30 05:28] LABS: % Basophils 0.1 % (0-2); % Lymphocytes 3.3 % (20.5-51.1); % Monocytes 3.6 % (1.7-9.3); Absolute Immature Granulocytes 0.2 10^3/uL (0-0.05); Absolute Lymphocytes 0.6 10^3/uL (1.2-3.4); Absolute Monocytes 0.7 10^3/uL (0.1-0.6); Absolute Neutrophils 16.6 10^3/uL (1.4-6.5); Hematocrit 40.3 % (39.0-52.0); Hemoglobin 14.3 g/dL (13.0-18.0); Mean Corp Hgb Conc. 35.5 g/dL (33.0-37.0); Mean Corpuscular Hgb 30.6 pg (27.0-31.0); Mean Corpuscular Volume 86.1 fL (80.0-94.0); Mean Platelet Volume 9.9 fL (7.4-10.4); Nucleated Red Blood Cells % 0 % (-); Platelet Count 231 10^3/uL (130-400); Red Blood Cell Count 4.68 10^6/uL (4.70-6.10); Red Cell Dist. Width 12.3 % (11.5-14.5); White Blood Cell Count 18.1 10^3/uL (4.8-10.8)
[2023-12-30 06:09] LABS: Blood Urea Nitrogen 18 mg/dl (9-20); Calcium 9.9 mg/dl (8.4-10.2); Carbon Dioxide 26 mmol/L (22-30); Chloride 105 mmol/L (98-107); Estimated Creatinine Clearance > 125 ml/min; Glucose 138 mg/dl (70-99); Potassium 4.1 mmol/L (3.5-5.1); Sodium 139 mmol/L (135-145); eGFR > 60.00
--- NOTE | 2023-12-30 06:38 | PTCARENOTE ---
Cared for pt overnight. No changes in neuro assessment. L leg weakness, still needs assistance when walking. NO visual changes. AAOx3. No pain. VSS. No worsening symptoms. will monitor.
[2023-12-30] MEDS: PEPCID 20 MG PO ×2 (08:23→20:49)
[2023-12-30] MEDS: VITAMIN B-12 1000 MCG PO (08:23)
[2023-12-30] MEDS: NOVOLOG FLEXPEN-LOW RESISTANCE SC ×2 (08:35→14:08)
[2023-12-30 08:45] LABS: Glucose - Point of Care 109 mg/dl (70-99)
--- NOTE | 2023-12-30 09:17 | CM ---
Call placed to Tristian at , spoke to October VDipak, call reference number [id number], October V. pulled up the In Network providers for his [employer] Plan and confirmed that the [facility] is In-Network with his plan.
Per October no preauthorization is required for an emergent Hospital to Hospital transfer. Update to Hospitalist and CM.
--- NOTE | 2023-12-30 10:06 | W.PN.NEURO.1 ---
Today's Communication / Plan
-
Continue methylprednisolone for 5 doses, patient has received 2 doses with the fourth dose on 12/30/2023
We will follow lumbar puncture results
Reviewed at length prognosis with regards to outcomes and potential medication choice making
Started B12 replacement due to marginally low levels
Neuro Assessment/Plan
Assessment
IMPRESSIONS/RECOMMENDATIONS:
Abrupt change in generalized numbness, unsteadiness, and speech changes
Most likely due to an acute demyelinating illness. The patient experienced a mild upper respiratory tract illness approximately 2 weeks prior to development of generalized symptoms leaving the possibility of acute disseminating encephalomyelitis.
Based on the nature of the lesions, timeframe, and mildly elevated WBC count, a lesser possibility is multiple sclerosis
Plan
Continue methylprednisolone for 5 doses, patient has received 2 doses with the fourth dose on 12/30/2023
We will follow lumbar puncture results
Reviewed at length prognosis with regards to outcomes and potential medication choice making
Started B12 replacement due to marginally low levels
Will continue to follow patient.
Subjective/Objective
Subjective Data
Date of Service: December 30, 2023
Unclear if improved. Numbness unchanged.
Objective Data
Vital Signs
Temp Pulse Resp BP Pulse Ox
36.4 C 71 21 124/94 95
12/29/23 23:10 12/30/23 06:00 12/30/23 06:00 12/30/23 06:00 12/30/23 04:00
Lab Results
12/30/23 05:00
12/30/23 05:00
PT 13.2 Sec (11.4-14.6) 12/28/23 11:42
INR 1.02 12/28/23 11:42
Sodium 139 mmol/L (135-145) 12/30/23 05:00
Potassium 4.1 mmol/L (3.5-5.1) 12/30/23 05:00
BUN 18 mg/dl (9-20) 12/30/23 05:00
Glucose 138 mg/dl (70-99) H 12/30/23 05:00
Calcium 9.9 mg/dl (8.4-10.2) 12/30/23 05:00
Vitamin B12 412 pg/ml (239-931) 12/27/23 07:07
Ur Buprenorphine Negative (Negative) 12/26/23 21:47
Patient Allergies
No Known Allergies Allergy (Verified 12/26/23 16:25)
Review of Systems
-
History Source: Patient
All other systems: Reviewed and negative
EENT: Swallowing Difficulty; Negative Decreased Vision
Respiratory: Negative Trouble Breathing
Cardiac: Negative Chest Pain
Abdomen/GI: Negative Incontinence of Stool
Genitourinary: Negative Incontinence
Musculoskeletal: Negative Back Pain or Neck Pain
Neuro: Dizzy and Speech Problem; Negative Headache
Physical Exam
-
General: No Apparent Distress and Appears Stated Age
Eyes: Round OU, [place] Conjunctivae and No Ptosis
HEENT: Anicteric and Moist Mucous Membranes
Neck: Full Range of Motion
Respiratory: No Dyspnea
Cardiac: No JVD
GI: Non-distended
Skin: Unremarkable
Extremities: No Clubbing, No Cyanosis and No Edema
Psych: Intact Judgement/Insight
Extended Neurological Exam
Mood & Affect: Mood Unremarkable and Affect Unremarkable
Attention Span & Concentration: Awake, Alert, Interactive and No Difficulty with 2 Step Request
Memory: Unremarkable
Tremor: Hand Tremor Absent and Head Tremor Absent
Speech: Quality Unremarkable and Quantity Unremarkable
Cranial Nerve II: Left Eye: Pupillary Size Unremarkable and Visual Vázquez Grossly Intact
Cranial Nerve II: Right Eye: Pupillary Size Unremarkable and Visual Vázquez Grossly Intact
Cranial Nerves III, IV, : Extraocular Movement: Extraocular Movement Full in all Directions
Cranial Nerve VII: Facial Symmetry: Normal Facial Symmetry
Cranial Nerve VIII: Hearing: Unremarkable Hearing to Normal Conversational Volume
Muscle Strength, Overall: Spontaneously Moves
Muscle Bulk & Tone: Bulk Unremarkable and Tone Unremarkable
Pronator Drift: No Drift in Upper Extremities
Coordination: Reaches for Objects without Difficulty
--- NOTE | 2023-12-30 10:43 | W.PN.HOSP.TC ---
Addendum entered and electronically signed by Favio Antonio MD 12/30/23 15:35:
I spoke to Dr. Byrd (neurologist at [facility]) who accepted patient for transfer as an elective transfer with buyback provision.
Original Note:
Today's Communication/Plan
-
I spoke with neurologists Dr. Byrd and Dr. Pastor at [facility], I discussed patient's case with them, Dr. Byrd to speak with neurologist at [facility] (Dr. Crawford) here prior to accepting patient. [facility]
Center number is [phone].
Patient can continue regular diet with thin liquids per speech evaluation (but did have one instance of aspiration right after burping)
Remains in IMU for VC measurement/breathing effort concerns
Assessment / Plan
Assessment / Plan
Physical Exam
General: Not in acute distress
HEENT: Normocephalic, Atraumatic
Respiratory: Clear to Auscultation Bilaterally
Cardiac: Regular Rhythm and S1/S2
GI: Soft, Nontender, Nondistended and Normal Bowel Sounds
Skin: Warm and Dry
Neuro: Awake, Alert, Oriented x3. Mild Dysarthria. Cranial Nerves grossly intact. Muscle strength grossly intact bilaterally although gait is unsteady.
Psych: Calm and Intact Judgement/Insight
Assessment/Plan
HPI: 33-year-old male with history of psoriasis on Tremfya biologic every 8 weeks (the last time was 3 weeks ago), presented to the hospital complaining of 1 week history of diffuse numbness mostly in the extremities.
Symptoms started in both feet and ascend proximally gradually without any weakness. Also no vision change, chest pain/shortness of breath or any seizure-like activity or syncope.
Overall feels tired and fatigued and progressively getting worse with exertional shortness of breath. Denies any trauma or accident or any head injury. Admits he feels cold with no fever or chills.
No sick contacts or recent travel.
Admit smokes occasionally and uses marijuana occasionally.
Workup in the ER basically showed no acute abnormality, with a CT brain concerning for questionable old subacute lacunar infarct.
A/P:
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 Multiple Sclerosis
Continue methylprednisolone for 5 doses -- today is day 4
Follow lumbar puncture results -- NMO/Mog/Aquaporin 4 added by neurology as per neurology
Follow Lyme serology
UDS negative
TSH WNL at 0.69
Neurology consulted, recommendations, appreciated
Continue Vitamin B12 given marginally lower (but within normal limits) Vitamin B12
I spoke with neurologists Dr. Byrd and Dr. Pastor at [facility], I discussed patient's case with them, Dr. Byrd to speak with neurologist (Dr. Crawford) here prior to accepting patient.
# psoriasis
Pt on Tremfya or Guselkumab
# Smoking cigarette and marijuana occasionally
UDS negative
Diet: Patient can continue regular diet with thin liquids per speech evaluation (but did have one instance of aspiration right after burping)
DVT prophylaxis SCDs and Lovenox
Anticipated Discharge: 24 - 48 hours
Subjective/Interval History
-
Date of Service: December 30, 2023
Patient was seen and examined. His girlfriend was present in the room, they reported he has had some difficulty swallowing. He still has the same numbness and unsteady gait.
Objective Data
-
Labs:
Laboratory Results
12/30/23
05:00
WBC 18.1 H
Hgb 14.3
Hct 40.3
Plt Count 231
Sodium 139
Potassium 4.1
Chloride 105
Carbon Dioxide 26
BUN 18
Creatinine 0.6 L
Glucose 138 H
Calcium 9.9
Vital Signs:
Vital Signs
Temp Pulse Resp BP Pulse Ox
97.5 F 71 21 124/94 95
12/30/23 08:45 12/30/23 06:00 12/30/23 06:00 12/30/23 06:00 12/30/23 04:00
I&O
12/29/23 12/30/23 12/31/23
06:59 06:59 06:59
Intake Total 240 / 240
Balance 240 / 240
--- NOTE | 2023-12-30 10:45 | PTOTSP ---
Speech Language Pathology
VIDEOFLUOROSCOPIC SWALLOWING EXAMINATION (VSE) completed. Mild pharyngeal dysphagia noted. Trace pharyngeal residue noted with all consistencies, most notable in vallecula and pyriform sinuses. No penetration/aspiration noted during the swallow.
However, post consecutive sips of thin liquids when fluoro turned off, pt with belch and immediate coughing. When fluoro turned back on, trace amount of contrast noted on posterior tracheal wall. Question whether from reflux.
Recommend:
(1) Regular solids/thin liquids
(2) Aspiration precautions: sit upright, slow rate, single sips
(3) Meds whole with liquid as tolerated
(4) MILLING/POLISHING OPERATOR to continue to follow
--- NOTE | 2023-12-30 11:20 | PTCARENOTE ---
Patient accompanied to and from VSE by this RN in Outpt radiology.
[2023-12-30] MEDS: SOLU-MEDROL 258 MG IV (11:55)
--- NOTE | 2023-12-30 13:06 | CM ---
Addendum entered by Ten Farfan 12/30/23 15:53:
Per , [facility] is accepted the pt to transfer, Awaiting for a bed. Buy back agreement will need to be signed by [employer] business administration teacher.
Original Note:
CM following re: discharge planning.
Reviewed pt's chart, met with pt and pt's fiance at bedside.
Both pt and his fiance are aware that [facility] is out of network with pt's insurance plan and [facility] is in network. Both pt and his girlfriend agree to transfer to [facility] if medically necessary.
MD, RN and are aware.
D/C plan: transfer to [facility] when accepted and when a bed is available.
CM< will follow to assist pt with transfer to [facility].
[2023-12-30 13:25] LABS: C.neoformans Antigen Negative (Negative)
[2023-12-30 13:35] LABS: Glucose - Point of Care 114 mg/dl (70-99)
[2023-12-30 16:49] LABS: Glucose - Point of Care 193 mg/dl (70-99)
--- NOTE | 2023-12-30 17:33 | CM ---
Called placed to Shaina in [facility] , per Shaina based on clinical information received today they feel that transfer is more elective in nature than emergent, therefore they are going to call to get an auth from [facility] on Thursday. Once auth and buy
back received they will call when bed is available.Made Shaina made aware that Director Check had already faxed buy back back to [place]. Update to hospitalist and health unit clerk.
--- NOTE | 2023-12-30 18:12 | PTCARENOTE ---
Assumed care of pt this am after morning rounds. He is alert, oriented and appropriate x3. Facial flush present. Neuro assessment notes rt pupil slight larger than left. pt reports this has been present, Dr. huerta. Pt for transfer to [facility]. Pt
reported today that he feels as if swallowing is a bit more difficult in 'getting food to move down' after swallowing. Pt's girlfriend at bedside and reports he appears to be having more belching after eating and hiccups at times. Pt reports rt and
left lower extremity numbness and tingling is 'about the same' and rt hand also 'about the same numbness and tingling'. VSE performed today with speech therapy and pt cleared to continue on regular diet with all liquids but must go slowly. Pt speech
is garbled at times and appears overwhelmed by situation. Many support people present throughout the day, SANDRA Pitts (an INSTRUMENT AND CONTROL SERVICE PERSON), sister Roshni, Father and friends> pLAN OF CARE decisions were dependent upon Insurance 'in network' FACILITY> It has
been confirmed that [facility] is within Network and they will accept pt. ALL PAPERWORK COMPLETED AND ON CHART< physicians spoke with [facility] accepting Physicians and family aware of plan of care. Pt will continue to receive IV Solumedrol per MD orders (5
doses) as clarified by . Pt emotional and asking for Ativan, Dr. Antonio defers this for now with concern that it may effect the pt's vital capacity. Pt informed of this and feels he can manage without for now. Pt encouraged to report to
staff if feels of anxiety continue or worsen. Quiet time provided for pt as he has not had any restful periods throughout the day. Pt's gait is unsteady and he is he instructed to change positions slowly and have help present for ambulation. He has
been accepting and cooperative with this. Pt encouraged to tighten his communication to 1-2 people and have them communicate to the extended family/friends in order to decrease his stress level. Pt has been supported by sister Roshni in making
decision to go to [facility] AND family then updated.
[2023-12-30] MEDS: NOVOLOG FLEXPEN-LOW RESISTANCE 1 UNITS SC (18:42)
[2023-12-30] MEDS: LOVENOX 40 MG SC (18:43)
[2023-12-30 21:22] LABS: Purkinje Cell/Neuronal Nuc IgG None Detected (None Detected)
[2023-12-30 21:50] LABS: Glucose - Point of Care 138 mg/dl (70-99)
[2023-12-31] VITALS (15 sets, daily range): BP systolic 118–162; BP diastolic 75–107; PULSE 66; O2SAT 66
[2023-12-31 01:07] LABS: Angiotensin-1- Converting, CSF 1.9 U/L (0.0-2.5)
[2023-12-31 05:59] LABS: % Basophils 0.1 % (0-2); % Immature Granulocytes 1.1 % (0-0.5); % Lymphocytes 5.3 % (20.5-51.1); % Monocytes 5.9 % (1.7-9.3); % Neutrophils 87.6 % (42.2-75.2); Absolute Immature Granulocytes 0.2 10^3/uL (0-0.05); Absolute Lymphocytes 0.9 10^3/uL (1.2-3.4); Absolute Neutrophils 15.2 10^3/uL (1.4-6.5); Hematocrit 42.6 % (39.0-52.0); Hemoglobin 14.4 g/dL (13.0-18.0); Mean Corp Hgb Conc. 33.8 g/dL (33.0-37.0); Mean Corpuscular Hgb 30.2 pg (27.0-31.0); Mean Corpuscular Volume 89.3 fL (80.0-94.0); Mean Platelet Volume 10.2 fL (7.4-10.4); Nucleated Red Blood Cells % 0 % (-); Platelet Count 226 10^3/uL (130-400); Red Blood Cell Count 4.77 10^6/uL (4.70-6.10); Red Cell Dist. Width 12.3 % (11.5-14.5); White Blood Cell Count 17.3 10^3/uL (4.8-10.8)
[2023-12-31 06:23] LABS: Blood Urea Nitrogen 18 mg/dl (9-20); Calcium 9.8 mg/dl (8.4-10.2); Carbon Dioxide 28 mmol/L (22-30); Chloride 103 mmol/L (98-107); Estimated Creatinine Clearance > 125 ml/min; Glucose 117 mg/dl (70-99); Potassium 4.5 mmol/L (3.5-5.1); Sodium 138 mmol/L (135-145); eGFR > 60.00
[2023-12-31 08:03] LABS: Glucose - Point of Care 106 mg/dl (70-99)
--- NOTE | 2023-12-31 09:31 | W.PN.NEURO.1 ---
Today's Communication / Plan
-
Continue methylprednisolone for 5 doses, with the fifth dose on 12/31/2023
Request consult from Hematology due to need for plasma exchange 5 treatments, 5 L to start after steroid infusions
Neuro Assessment/Plan
Assessment
IMPRESSIONS/RECOMMENDATIONS:
Abrupt change in generalized numbness, unsteadiness, and speech changes
Most likely due to an acute demyelinating illness. The patient experienced a mild upper respiratory tract illness approximately 2 weeks prior to development of generalized symptoms leaving the possibility of acute disseminating encephalomyelitis.
Based on the nature of the lesions, timeframe, and mildly elevated WBC count, a lesser possibility is multiple sclerosis
Plan
Continue methylprednisolone for 5 doses, with the fifth dose on 12/31/2023
Request consult from Hematology due to need for plasma exchange 5 treatments, 5 L to start after steroid infusions
We will follow lumbar puncture results
Started B12 replacement due to marginally low levels
Will continue to follow patient.
Subjective/Objective
Subjective Data
Date of Service: December 31, 2023
No change to symptoms.
Objective Data
Vital Signs
Temp Pulse Resp BP Pulse Ox
36.6 C 63 19 123/87 98
12/31/23 07:10 12/31/23 08:00 12/31/23 08:00 12/31/23 08:00 12/31/23 08:00
Lab Results
12/31/23 05:42
12/31/23 05:42
PT 13.2 Sec (11.4-14.6) 12/28/23 11:42
INR 1.02 12/28/23 11:42
Sodium 138 mmol/L (135-145) 12/31/23 05:42
Potassium 4.5 mmol/L (3.5-5.1) 12/31/23 05:42
BUN 18 mg/dl (9-20) 12/31/23 05:42
Glucose 117 mg/dl (70-99) H 12/31/23 05:42
Calcium 9.8 mg/dl (8.4-10.2) 12/31/23 05:42
Vitamin B12 412 pg/ml (239-931) 12/27/23 07:07
Ur Buprenorphine Negative (Negative) 12/26/23 21:47
Patient Allergies
No Known Allergies Allergy (Verified 12/26/23 16:25)
Review of Systems
-
History Source: Patient
All other systems: Reviewed and negative
EENT: Swallowing Difficulty (mild); Negative Decreased Vision
Respiratory: Negative Trouble Breathing
Cardiac: Negative Chest Pain
Abdomen/GI: Negative Incontinence of Stool
Genitourinary: Negative Incontinence
Musculoskeletal: Negative Back Pain or Neck Pain
Neuro: Dizzy and Speech Problem; Negative Headache
Physical Exam
-
General: No Apparent Distress and Appears Stated Age
Eyes: Round OU, [place] Conjunctivae and No Ptosis
HEENT: Anicteric and Moist Mucous Membranes
Neck: Full Range of Motion
Respiratory: No Dyspnea
Cardiac: No JVD
GI: Non-distended
Skin: Unremarkable
Extremities: No Clubbing, No Cyanosis and No Edema
Psych: Intact Judgement/Insight
Extended Neurological Exam
Mood & Affect: Mood Unremarkable and Affect Unremarkable
Attention Span & Concentration: Awake, Alert, Interactive and No Difficulty with 2 Step Request
Memory: Unremarkable
Tremor: Hand Tremor Absent and Head Tremor Absent
Involuntary Movement: None
Speech: Quality Unremarkable and Quantity Unremarkable
Cranial Nerve II: Left Eye: Pupillary Size Unremarkable and Visual Vázquez Grossly Intact
Cranial Nerve II: Right Eye: Pupillary Size Unremarkable and Visual Vázquez Grossly Intact
Cranial Nerves III, IV, : Extraocular Movement: Grossly Intact
Cranial Nerve VII: Facial Symmetry: Normal Facial Symmetry
Cranial Nerve VIII: Hearing: Unremarkable Hearing to Normal Conversational Volume
Muscle Strength, Overall: Spontaneously Moves
Muscle Bulk & Tone: Bulk Unremarkable and Tone Unremarkable
Pronator Drift: No Drift in Upper Extremities
Coordination: Reaches for Objects without Difficulty
Gait & Station: Romberg Test Negative; Negative Up from Seated Without Problem
Data Reviewed
-
Labs: Report Reviewed
Reviewed with: Physician, Patient and Other
Old Records: Summarized
--- NOTE | 2023-12-31 10:34 | CON.ID ---
Consultation
-
Date/Time Consultation Requested: 12/31/2023 08:08
Date/Time Consultation Performed: 12/31/2023 10:00
Requesting Provider: Dr. Antonio
Performing Provider: Dr. Tamez
Reason for Consultation: Possible MEDICAL UNIT SECRETARY infection
Chief Complaint / Past History
History of Present Illness
Nicho Frank is a 33-year-old man being evaluated at the request of Dr. Antonio regarding possible MEDICAL UNIT SECRETARY infection. History is obtained from chart review, along with patient interview, and history obtained from the patient's significant other who
is present at the bedside.
The patient has a significant past medical history of psoriasis, and has been receiving Tremfya q. 8 weeks for the past 2 years. 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
posterior aspect of his left calf. He was thereafter placed on a 7-day course of antibiotics (does not recall name). He notes that the dog was up-to-date on all its vaccinations, including rabies.
Around the end of the course of antibiotics he recalls developing URI symptoms for approximately 1 week, with symptoms then resolving and he felt okay for about a week. Then, approximately 14 days ago he began to have diffuse numbness all over his
body. He was seen at an urgent care and blood work (including Lyme testing) was noted to be negative. Because of ongoing symptoms, and progression of gait dysfunction and speech dysfunction he presented to the emergency room on 12/25. Thereafter,
he underwent a lumbar puncture. Current clinical picture is noted to be consistent with ADEM. Infectious Diseases is asked to comment on the possibility of MEDICAL UNIT SECRETARY infection.
Patient does not recall seeing any ticks on his body. He notes no rashes. Since admission, he has been afebrile. He has been started on pulse dose steroids, and notes that today there has not been significant improvement in his symptomatology,
but it does not appear to be progressive.
Past History
Additional Past Medical History:
Psoriasis
Additional Past Surgical History:
Left hand surgery
Allergy History:
No Known Allergies Allergy (Verified 12/26/23 16:25)
Medications Reviewed: Yes
Current Antibiotics:
None
Social History
Tobacco: Smoker (occasional)
Alcohol: Occasional
Drug: Marijuana (occasional)
Personal: Other (Girlfriend)
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
Family History
Family History: Not Pertinent
Review of Systems
Vital Signs
Temp Pulse Resp BP Pulse Ox
97.9 F 63 19 123/87 98
12/31/23 07:10 12/31/23 08:00 12/31/23 08:00 12/31/23 08:00 12/31/23 08:00
Physical Exam
Physical Exam
Constitutional: No Acute Distress, Well Developed, Comfortable and Non-toxic
Head: Normocephalic
Eyes: Pupils Equal, Pupils Round, No Conjunctival Hemorrhage and Sclera Anicteric
Oral: No Thrush and No Ulcers
Cardiovascular: Regular Rate and S1/S2; Negative S3/S4
Pulmonary: Clear; Negative Wheezes, Rales or Rhonchi
Gastrointestinal: Soft, Non Tender, Non Distended and Normal Bowel Sounds
Extremities: Negative Edema, Clubbing or Cyanosis
Skin: Warm and Dry; Negative Rash or Jaundice
Neurological: Awake and Alert
Psychological: Calm
.
Lab / Diagnostic Study Results
12/31/23 05:42
12/31/23 05:42
Abs Immat Gran (auto) 0.2 10^3/uL (0-0.05) H 12/31/23 05:42
Absolute Neuts (auto) 15.2 10^3/uL (1.4-6.5) H 12/31/23 05:42
Absolute Lymphs (auto) 0.9 10^3/uL (1.2-3.4) L 12/31/23 05:42
Absolute Monos (auto) 1.0 10^3/uL (0.1-0.6) H 12/31/23 05:42
Absolute Basos (auto) 0.0 10^3/uL (0-0.2) 12/31/23 05:42
Immature Gran % 1.1 % (0-0.5) H 12/31/23 05:42
Neutrophils % 87.6 % (42.2-75.2) H 12/31/23 05:42
Lymphocytes % 5.3 % (20.5-51.1) L 12/31/23 05:42
Monocytes % 5.9 % (1.7-9.3) 12/31/23 05:42
Eosinophils % 0.0 % (0-6) 12/31/23 05:42
Basophils % 0.1 % (0-2) 12/31/23 05:42
ESR 1 mm/hour (0-20) 12/26/23 16:17
PT 13.2 Sec (11.4-14.6) 12/28/23 11:42
INR 1.02 12/28/23 11:42
Microbiology Results
Micro:
12/28/23 17:32 CSF Culture - Preliminary
Csf No Growth After 48 Hours
Gram Stain - Preliminary
12/28/23 17:32 Meningitis/Encephalitis Panel (PCR) - Final
Csf
Meningitis Panel, CSF by PCR Final 01/17/24-1946
Escherichia coli K1 Not Detected
Haemophilus influenzae Not Detected
Listeria monocytogenes Not Detected
Neisseria meningitidis Not Detected
Cytomegalovirus (CMV) Not Detected
Streptococcus agalactiae Not Detected
Streptococcus pneumoniae Not Detected
Enterovirus Not Detected
Herpes simplex virus 1 Not Detected
Herpes simplex virus 2 Not Detected
Human herpesvirus 6 Not Detected
Human parechovirus Not Detected
Varicella zoster virus Not Detected
C. neoformans/gattii Not Detected
12/26/23
16:17
Lyme Screen IgG & IgM (serum) Negative
Imaging:
12/27/2023 MRI brain without contrast: There are numerous focal regions of abnormal increased diffusion-weighted signal with increased T2 and FLAIR signal, and no restricted diffusion, with increased signal intensity on ADC images. Findings are
highly suggestive of a demyelinating process. Main differential considerations of acute disseminated encephalomyelitis and multiple sclerosis. Regions of multiple infarction would not be expected to have this appearance on MRI. Neoplastic disease
could be considered, but felt to be significantly less likely.
Assessment / Plan
Generalized numbness
Gait disturbance/speech dysfunction
- Suspected demyelinating illness; possible ADEM
Hx recent URI (~3 wk prior to symptom onset)
Hx recent dog bite (dog UTD with vaccines)
Recommendations:
At present, symptomatology and history not consistent with an infectious etiology. Recent Lyme serology negative. Coinfection unlikely, although patient/family would like further testing.
Will order serology for Babesia, Anaplasma and Ehrlichia.
Patient has been accepted in transfer to [facility].
Neurology following closely and anticipates initiation of plasma exchange if transfer is not eminent.
Patient to contact mold filler plastic dolls of dog to see how the dog is doing. Rabies would be exceedingly unlikely here given vaccinated status of pet, and essentially ruled out if there is no symptomatology on the part of the dog at present. MEDICAL UNIT SECRETARY Lyme of low
likelihood given negative prior serology. Lyme PCR on the MEDICAL UNIT SECRETARY is pending.
At present, no need for antibiotics . Will continue to follow along with you.
[2023-12-31] MEDS: NOVOLOG FLEXPEN-LOW RESISTANCE SC ×2 (10:40→13:35)
[2023-12-31] MEDS: VITAMIN B-12 1000 MCG PO (10:41)
[2023-12-31] MEDS: PEPCID 20 MG PO ×2 (10:41→20:22)
[2023-12-31 12:42] LABS: Albumin Index 7.7 ratio (0.0-9.0); Albumin, CSF 35 mg/dL (0-35); Albumin, Serum 4527 mg/dL (3500-5200); CSF IgG Synthesis Rate 0.6 mg/d (<=8.0); CSF IgG/Albumin Ratio 0.07 ratio (0.09-0.25); CSF Oligoclonal Bands Negative (Negative); CSF Oligoclonal Bands Number 0 Bands (0-1); IgG 594 mg/dL (768-1632); IgG, CSF 2.6 mg/dL (0.0-6.0)
[2023-12-31 12:54] LABS: Glucose - Point of Care 101 mg/dl (70-99)
[2023-12-31] MEDS: SOLU-MEDROL 258 MG IV (13:36)
--- NOTE | 2023-12-31 13:39 | W.PN.HOSP.TC ---
Today's Communication/Plan
-
Plasma Exchange treatments to start tomorrow
Last day of steroids today
Await lab results
Awaiting elective transfer to [facility]
Assessment / Plan
Assessment / Plan
Physical Exam
General: Not in acute distress
HEENT: Normocephalic, Atraumatic
Respiratory: Clear to Auscultation Bilaterally
Cardiac: Regular Rhythm and S1/S2
GI: Soft, Nontender, Nondistended and Normal Bowel Sounds
Skin: Warm and Dry
Neuro: Awake, Alert, Oriented x3. Mild Dysarthria. Cranial Nerves grossly intact. Muscle strength grossly intact bilaterally although gait is unsteady.
Psych: Calm and Intact Judgement/Insight
Assessment/Plan
HPI: 33-year-old male with history of psoriasis on Tremfya biologic every 8 weeks (the last time was 3 weeks ago), presented to the hospital complaining of 1 week history of diffuse numbness mostly in the extremities.
Symptoms started in both feet and ascend proximally gradually without any weakness. Also no vision change, chest pain/shortness of breath or any seizure-like activity or syncope.
Overall feels tired and fatigued and progressively getting worse with exertional shortness of breath. Denies any trauma or accident or any head injury. Admits he feels cold with no fever or chills.
No sick contacts or recent travel.
Admit smokes occasionally and uses marijuana occasionally.
Workup in the ER basically showed no acute abnormality, with a CT brain concerning for questionable old subacute lacunar infarct.
A/P:
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 Multiple Sclerosis
Continue methylprednisolone for 5 doses -- today is day 5
Plasmapharesis.
Follow lumbar puncture results, initial results noted
Follow Lyme studies
Infectious Disease consulted, appreciate their evaluation and recommendations.
No antibiotics needed at this time.
TSH WNL at 0.69
Neurology consulted, recommendations, appreciated
Interventional Radiology consulted: patient to get [facility] tomorrow to receive plasmapheresis (5 treatments, 5 L to start after steroid infusions) starting tomorrow
Hematology also consulted given that patient will get plasmapharesis
Continue Vitamin B12 given marginally lower (but within normal limits) Vitamin B12
On December 30, 2023, I spoke with neurologists Dr. Byrd and Dr. Pastor at [facility], I discussed patient's case with them, they accepted patient as an elective transfer to [facility].
# psoriasis
Pt on Tremfya or Guselkumab
# Smoking cigarette and marijuana occasionally
UDS negative
Diet: Patient can continue regular diet with thin liquids per speech evaluation (but did have one instance of aspiration right after burping)
DVT prophylaxis SCDs and Lovenox
Anticipated Discharge: > 48 hours
Subjective/Interval History
-
Date of Service: December 31, 2023
Patient was seen and examined. No new significant symptoms, still with unsteady gait and numbness.
Objective Data
-
Labs:
Laboratory Results
12/31/23 12/31/23
05:42 13:33
WBC 17.3 H
Hgb 14.4
Hct 42.6
Plt Count 226
PT Pending
INR Pending
APTT Pending
Sodium 138
Potassium 4.5
Chloride 103
Carbon Dioxide 28
BUN 18
Creatinine 0.7
Glucose 117 H
Calcium 9.8
Vital Signs:
Vital Signs
Temp Pulse Resp BP Pulse Ox
98.1 F 63 19 123/87 98
12/31/23 11:48 12/31/23 08:00 12/31/23 08:00 12/31/23 08:00 12/31/23 08:00
I&O
12/30/23 12/31/23 01/01/24
06:59 06:59 06:59
Intake Total 1200 / 1200 420 / 420
Balance 1200 / 1200 420 / 420
[2023-12-31 14:05] LABS: APTT 22.3 Sec (23.4-35.0)
[2023-12-31 14:44] LABS: INR 1.03; PT 13.5 Sec (11.4-14.6)
[2023-12-31 14:46] LABS: Fibrinogen 208 MG/DL (199-459)
--- NOTE | 2023-12-31 15:11 | CON.ONC ---
Impression
Impression
demyelinating neurologic process
Plan
Plan
1. Demyelinating neurologic process
-hematology has been consulted to assist w/ facilitating plasmapheresis as per Dr. Crawford, neurology, recommendations
-discussed patient's clinical situation w/ [facility]heres[facility] services who assisted w/ replacement fluid recommendations
-as per [facility] - replacement fluid should consist of 3.25L 5% albumin - along w/ 3.25g calcium gluconate w/ each treatment
-above replacement fluid discussed w/ pharmacy and ordered
-check daily coags - PT/INR, aPTT and fibrinogen - daily CBC
-central line for pheresis to be placed w/ IR tomorrow am w/ plans for 1st treatment in am
will continue to follow with you.
Patient History
History of Present Illness
33y/o male seen in hematology consultation, in order to facilitate plasmapheresis for acute neurologic demyelinating process.
The patient presented to the [facility] ER on 12/25 w/ paresthesias and difficulty ambulating. He underwent comprehensive neurologic w/u including and MRI of the brain revealing findings suggestive of a demyelinating process w/differential
considerations of acute disseminated encephalomyelitis and multiple sclerosis.
He was started on steroids and Dr. Crawford, neurology, is now recommending plasmapheresis for this neurologic process. Dr. Crawford is recommending 5 treatments, every other day.
Past-Medical/Surgical History
PMH:
psoriasis
PSH:
none
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
occasional tobacco and marijuana
social ETOH
Family history: noncontributory
Allergies: NKDA
Patient Medication
�Medication �Instructions �Recorded �Confirmed �Last Taken �Type
guselkumab 100 mg/mL subcutaneous 0 mg SC Q8W Psoriasis 12/26/23 12/26/23 3 Weeks Ago History
auto-injector (Tremfya) ~12/05/23
Active Medications
Generic Name Dose Route Start Last Admin
Trade Name Freq PRN Reason Stop Dose Admin
Acetaminophen 650 mg 12/26/23 20:13
Acetaminophen 325 Mg Tablet PO 01/23/24 20:12
Q4HPRN PRN
mild pain/DENNIS/temp> 100.4F
Bisacodyl 10 mg 12/26/23 20:13
Bisacodyl 10 Mg Rectal Suppository RECTAL 01/23/24 20:12
[id number] PRN
constipation
Cyanocobalamin 1,000 mcg 12/28/23 12:00 12/31/23 10:41
Cyanocobalamin 1,000 Mcg Tablet PO 01/25/24 11:59 1,000 mcg
DAILY JULIETA Administration
Dextrose 12.5 grams 12/27/23 11:29
Dextrose 50% (0.5 Grams/Ml) 50 Ml Syringe IV 01/24/24 11:28
[id number] PRN
hypoglycemia
Protocol
Enoxaparin Sodium 40 mg 12/30/23 18:00 12/30/23 18:43
Enoxaparin Sodium 40 Mg/0.4 Ml Syringe SC 01/27/24 17:59 40 mg
QPM JULIETA Administration
Famotidine 20 mg 12/29/23 20:00 12/31/23 10:41
Famotidine 20 Mg Tablet PO 01/26/24 19:59 20 mg
BID JULIETA Administration
Glucagon 1 mg 12/27/23 11:29
Glucagon 1 Mg Vial IM 01/24/24 11:28
PRN PRN
hypoglycemia
Protocol
Heparin Sodium 0 units 01/01/24 08:00
Heparin (1000 Units/Ml) 10,000 Units/10 Ml Vial INTRACATH 01/01/24 08:01
ONCE ONE
Heparin Sodium 0 units 01/03/24 08:00
Heparin (1000 Units/Ml) 10,000 Units/10 Ml Vial INTRACATH 01/03/24 08:01
ONCE ONE
Heparin Sodium 0 units 01/05/24 08:00
Heparin (1000 Units/Ml) 10,000 Units/10 Ml Vial INTRACATH 01/05/24 08:01
ONCE ONE
Heparin Sodium 0 units 01/07/24 08:00
Heparin (1000 Units/Ml) 10,000 Units/10 Ml Vial INTRACATH 01/07/24 08:01
ONCE ONE
Heparin Sodium 0 units 01/09/24 08:00
Heparin (1000 Units/Ml) 10,000 Units/10 Ml Vial INTRACATH 01/09/24 08:01
ONCE ONE
Albumin Human 12.5 grams in 250 mls @ 1,666.667 mls/hr 01/01/24 08:00
Albumin 5% INTRACATH 01/01/24 09:56
.Q9M [facility]
Calcium Gluconate 3,250 mg/ 282.5 mls @ 0 mls/hr 01/01/24 08:00
Sodium Chloride IV 01/01/24 08:01
ONCE ONE
As Directed
Albumin Human 12.5 grams in 250 mls @ 1,666.667 mls/hr 01/03/24 08:00
Albumin 5% INTRACATH 01/03/24 09:56
.Q9M [facility]
Calcium Gluconate 3,250 mg/ 282.5 mls @ 0 mls/hr 01/03/24 08:00
Sodium Chloride IV 01/03/24 08:01
ONCE ONE
As Directed
Albumin Human 12.5 grams in 250 mls @ 1,666.667 mls/hr 01/05/24 08:00
Albumin 5% INTRACATH 01/05/24 09:56
.Q9M [facility]
Calcium Gluconate 3,250 mg/ 282.5 mls @ 0 mls/hr 01/05/24 08:00
Sodium Chloride IV 01/05/24 08:01
ONCE ONE
As Directed
Albumin Human 12.5 grams in 250 mls @ 1,666.667 mls/hr 01/07/24 08:00
Albumin 5% INTRACATH 01/07/24 09:56
.Q9M JULIETA
Calcium Gluconate 3,250 mg/ 282.5 mls @ 0 mls/hr 01/07/24 08:00
Sodium Chloride IV 01/07/24 08:01
ONCE ONE
As Directed
Albumin Human 12.5 grams in 250 mls @ 1,666.667 mls/hr 01/09/24 08:00
Albumin 5% INTRACATH 01/09/24 09:56
.Q9M [facility]
Calcium Gluconate 3,250 mg/ 282.5 mls @ 0 mls/hr 01/09/24 08:00
Sodium Chloride IV 01/09/24 08:01
ONCE ONE
As Directed
Insulin Aspart 0 units 12/27/23 11:30 12/31/23 13:35
Insulin Aspart Low Resistance 300 Units/3 Ml Pen.Injctr SC 01/24/24 11:29 Not Given
AC JULIETA
Protocol
Polyethylene Glycol 17 grams 12/26/23 20:13
Polyethylene Glycol Powder 17 Grams Packet PO 01/23/24 20:12
DAILYPRN PRN
constipation
Prochlorperazine Maleate 10 mg 12/29/23 12:59
Prochlorperazine 10 Mg Tablet PO 01/26/24 12:58
Q8HPRN PRN
hiccups
Senna/Docusate Sodium 1 tablet 12/26/23 20:13
Docusate W/Senna (Paige-Colace) Tablet PO 01/23/24 20:12
BIDPRN PRN
constipation
Sodium Chloride 0 flush 12/26/23 21:00
Sodium Chloride 0.9% (Flush) Syringe IV 01/23/24 20:59
PER PROTOCOL JULIETA
Review of Systems
-
Limited ROS was performed - continued weakness, unsteady gait, and numbess.
Physical Exam
-
General: Well Developed and No Apparent Distress
Labs
Lab Results
WBC 17.3 10^3/uL (4.8-10.8) H 12/31/23 05:42
RBC 4.77 10^6/uL (4.70-6.10) 12/31/23 05:42
Hgb 14.4 g/dL (13.0-18.0) 12/31/23 05:42
Hct 42.6 % (39.0-52.0) 12/31/23 05:42
MCV 89.3 fL (80.0-94.0) 12/31/23 05:42
MCH 30.2 pg (27.0-31.0) 12/31/23 05:42
MCHC 33.8 g/dL (33.0-37.0) 12/31/23 05:42
RDW 12.3 % (11.5-14.5) 12/31/23 05:42
Plt Count 226 10^3/uL (130-400) 12/31/23 05:42
MPV 10.2 fL (7.4-10.4) 12/31/23 05:42
Abs Immat Gran (auto) 0.2 10^3/uL (0-0.05) H 12/31/23 05:42
Absolute Neuts (auto) 15.2 10^3/uL (1.4-6.5) H 12/31/23 05:42
Absolute Lymphs (auto) 0.9 10^3/uL (1.2-3.4) L 12/31/23 05:42
Absolute Monos (auto) 1.0 10^3/uL (0.1-0.6) H 12/31/23 05:42
Absolute Eos (auto) 0.0 10^3/uL (0-0.7) 12/31/23 05:42
Absolute Basos (auto) 0.0 10^3/uL (0-0.2) 12/31/23 05:42
Immature Gran % 1.1 % (0-0.5) H 12/31/23 05:42
Neutrophils % 87.6 % (42.2-75.2) H 12/31/23 05:42
Lymphocytes % 5.3 % (20.5-51.1) L 12/31/23 05:42
Monocytes % 5.9 % (1.7-9.3) 12/31/23 05:42
Eosinophils % 0.0 % (0-6) 12/31/23 05:42
Basophils % 0.1 % (0-2) 12/31/23 05:42
Creatinine 0.7 mg/dL (0.7-1.3) 12/31/23 05:42
Vital Signs
Vital Signs
Temp Pulse Resp BP Pulse Ox
98.1 F 91 14 155/89 97
12/31/23 11:48 12/31/23 14:00 12/31/23 14:00 12/31/23 12:11 12/31/23 10:00
[2023-12-31 17:54] LABS: Glucose - Point of Care 207 mg/dl (70-99)
[2023-12-31] MEDS: LOVENOX 40 MG SC (18:09)
[2023-12-31] MEDS: NOVOLOG FLEXPEN-LOW RESISTANCE 2 UNITS SC (18:11)
[2023-12-31 20:09] LABS: Myelin Basic Protein, CSF >102.00 ng/mL (0.00-5.50)
[2023-12-31 21:48] LABS: Glucose - Point of Care 158 mg/dl (70-99)
[2023-12-31] MEDS: MELATONIN 5 MG PO (21:59)
[2024-01-01] VITALS (23 sets, daily range): BP systolic 68–156; BP diastolic 72–125
--- NOTE | 2024-01-01 02:27 | PTCARENOTE ---
Pt having trouble falling a sleep. Night Director [employer]ile [employer] made aware order placed for melatonin. Plan is for Pt to go to IR in am for cath then receive plasmapheresis. Shai dobbs RN called for update and to give list of supplies. Shai Amezcua
[phone].
[2024-01-01 04:59] LABS: % Basophils 0.3 % (0-2); % Immature Granulocytes 2.3 % (0-0.5); % Lymphocytes 5.2 % (20.5-51.1); % Neutrophils 88.2 % (42.2-75.2); Absolute Immature Granulocytes 0.3 10^3/uL (0-0.05); Absolute Lymphocytes 0.7 10^3/uL (1.2-3.4); Absolute Monocytes 0.6 10^3/uL (0.1-0.6); Absolute Neutrophils 12.1 10^3/uL (1.4-6.5); Hematocrit 43.1 % (39.0-52.0); Hemoglobin 14.7 g/dL (13.0-18.0); Mean Corp Hgb Conc. 34.1 g/dL (33.0-37.0); Mean Corpuscular Hgb 30.5 pg (27.0-31.0); Mean Corpuscular Volume 89.4 fL (80.0-94.0); Mean Platelet Volume 10.1 fL (7.4-10.4); Nucleated Red Blood Cells % 0 % (-); Platelet Count 232 10^3/uL (130-400); Red Blood Cell Count 4.82 10^6/uL (4.70-6.10); Red Cell Dist. Width 12.4 % (11.5-14.5); White Blood Cell Count 13.7 10^3/uL (4.8-10.8)
[2024-01-01 05:15] LABS: Blood Urea Nitrogen 14 mg/dl (9-20); Calcium 9.4 mg/dl (8.4-10.2); Carbon Dioxide 29 mmol/L (22-30); Chloride 104 mmol/L (98-107); Estimated Creatinine Clearance > 125 ml/min; Glucose 136 mg/dl (70-99); Potassium 4.2 mmol/L (3.5-5.1); Sodium 138 mmol/L (135-145); eGFR > 60.00
[2024-01-01 06:09] LABS: Lyme Disease DNA by PCR Not Detected; Lyme Source CSF
[2024-01-01 07:55] LABS: Glucose - Point of Care 102 mg/dl (70-99)
--- NOTE | 2024-01-01 08:27 | W.PN.NEURO.1 ---
Today's Communication / Plan
-
Request consult from Hematology due to need for plasma exchange 5 treatments, 5 L
We will follow lumbar puncture results
Started B12 replacement due to marginally low levels
Neuro Assessment/Plan
Assessment
IMPRESSIONS/RECOMMENDATIONS:
Abrupt change in generalized numbness, unsteadiness, and speech changes
Most likely due to an acute demyelinating illness. The patient experienced a mild upper respiratory tract illness approximately 2 weeks prior to development of generalized symptoms leaving the possibility of acute disseminating encephalomyelitis.
Based on the nature of the lesions, timeframe, and mildly elevated WBC count, a lesser possibility is multiple sclerosis
Completed methylprednisolone for 5 doses, with the fifth dose on 12/31/2023
Negative oligoclonal bands
Plan
Request consult from Hematology due to need for plasma exchange 5 treatments, 5 L
We will follow lumbar puncture results
Started B12 replacement due to marginally low levels
Will continue to follow patient.
Subjective/Objective
Subjective Data
Date of Service: January 01, 2024
Walking and balance improved. Had central line placed.
Objective Data
Vital Signs
Temp Pulse Resp BP Pulse Ox
36.8 C 54 18 129/81 97
01/01/24 07:24 01/01/24 06:00 01/01/24 06:00 01/01/24 06:00 12/31/23 21:45
Lab Results
01/01/24 04:43
01/01/24 04:43
PT 13.5 Sec (11.4-14.6) 12/31/23 13:33
INR 1.03 12/31/23 13:33
APTT 22.3 Sec (23.4-35.0) L 12/31/23 13:33
Sodium 138 mmol/L (135-145) 01/01/24 04:43
Potassium 4.2 mmol/L (3.5-5.1) 01/01/24 04:43
BUN 14 mg/dl (9-20) 01/01/24 04:43
Glucose 136 mg/dl (70-99) H 01/01/24 04:43
Calcium 9.4 mg/dl (8.4-10.2) 01/01/24 04:43
Vitamin B12 412 pg/ml (239-931) 12/27/23 07:07
Ur Buprenorphine Negative (Negative) 12/26/23 21:47
Patient Allergies
No Known Allergies Allergy (Verified 12/26/23 16:25)
Review of Systems
-
History Source: Patient
All other systems: Reviewed and negative
EENT: Swallowing Difficulty; Negative Decreased Vision
Respiratory: Other (GUIDRY); Negative Trouble Breathing
Cardiac: Negative Chest Pain
Abdomen/GI: Negative Incontinence of Stool
Genitourinary: Negative Incontinence
Musculoskeletal: Negative Back Pain or Neck Pain
Neuro: Dizzy; Negative Headache
Physical Exam
-
General: No Apparent Distress and Appears Stated Age
Eyes: Round OU, [place] Conjunctivae and No Ptosis
HEENT: Anicteric and Moist Mucous Membranes
Neck: Full Range of Motion
Respiratory: No Dyspnea
Cardiac: No JVD
GI: Non-distended
Skin: Unremarkable
Extremities: No Clubbing, No Cyanosis and No Edema
Psych: Intact Judgement/Insight
Extended Neurological Exam
Mood & Affect: Mood Unremarkable and Affect Unremarkable
Attention Span & Concentration: Awake, Alert and Interactive
Memory: Unremarkable
Tremor: Hand Tremor Absent and Head Tremor Absent
Involuntary Movement: None
Speech: Quality Unremarkable and Quantity Unremarkable
Cranial Nerve II: Left Eye: Pupillary Size Unremarkable and Visual Vázquez Grossly Intact
Cranial Nerve II: Right Eye: Pupillary Size Unremarkable and Visual Vázquez Grossly Intact
Cranial Nerves III, IV, : Extraocular Movement: Grossly Intact
Cranial Nerve VII: Facial Symmetry: Normal Facial Symmetry
Cranial Nerve VIII: Hearing: Unremarkable Hearing to Normal Conversational Volume
Muscle Strength, Overall: Spontaneously Moves
Muscle Bulk & Tone: Bulk Unremarkable and Tone Unremarkable
Coordination: Reaches for Objects without Difficulty
Data Reviewed
-
Labs: Report Reviewed
Reviewed with: Physician, Nurse, Patient and Other
Old Records: Summarized
Past History
Past History
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
ED Past Surgical History: None
Social History
Tobacco: Non-smoker
Alcohol: Occasional
Drug: Marijuana and Cocaine
Personal: Single
Living: with family
Employment: Employed ([employer])
Family History
Family History: Other (Reviewed and non-contributory)
Medications
-
Medications:
Generic Name Dose Route Start Last Admin
Trade Name Freq PRN Reason Stop Dose Admin
Acetaminophen 650 mg 12/26/23 20:13
Acetaminophen 325 Mg Tablet PO 01/23/24 20:12
Q4HPRN PRN
mild pain/DENNIS/temp> 100.4F
Bisacodyl 10 mg 12/26/23 20:13
Bisacodyl 10 Mg Rectal Suppository RECTAL 01/23/24 20:12
[id number] PRN
constipation
Cyanocobalamin 1,000 mcg 12/28/23 12:00 12/31/23 10:41
Cyanocobalamin 1,000 Mcg Tablet PO 01/25/24 11:59 1,000 mcg
DAILY JULIETA Administration
Dextrose 12.5 grams 12/27/23 11:29
Dextrose 50% (0.5 Grams/Ml) 50 Ml Syringe IV 01/24/24 11:28
[id number] PRN
hypoglycemia
Protocol
Enoxaparin Sodium 40 mg 12/30/23 18:00 12/31/23 18:09
Enoxaparin Sodium 40 Mg/0.4 Ml Syringe SC 01/27/24 17:59 40 mg
QPM JULIETA Administration
Famotidine 20 mg 12/29/23 20:00 12/31/23 20:22
Famotidine 20 Mg Tablet PO 01/26/24 19:59 20 mg
BID JULIETA Administration
Glucagon 1 mg 12/27/23 11:29
Glucagon 1 Mg Vial IM 01/24/24 11:28
PRN PRN
hypoglycemia
Protocol
Heparin Sodium 0 units 01/03/24 08:00
Heparin (1000 Units/Ml) 10,000 Units/10 Ml Vial INTRACATH 01/03/24 08:01
ONCE ONE
Heparin Sodium 0 units 01/05/24 08:00
Heparin (1000 Units/Ml) 10,000 Units/10 Ml Vial INTRACATH 01/05/24 08:01
ONCE ONE
Heparin Sodium 0 units 01/07/24 08:00
Heparin (1000 Units/Ml) 10,000 Units/10 Ml Vial INTRACATH 01/07/24 08:01
ONCE ONE
Heparin Sodium 0 units 01/09/24 08:00
Heparin (1000 Units/Ml) 10,000 Units/10 Ml Vial INTRACATH 01/09/24 08:01
ONCE ONE
Albumin Human 12.5 grams in 250 mls @ 1,666.667 mls/hr 01/01/24 08:00
Albumin 5% INTRACATH 01/01/24 09:56
.Q9M JULIETA
Albumin Human 12.5 grams in 250 mls @ 1,666.667 mls/hr 01/03/24 08:00
Albumin 5% INTRACATH 01/03/24 09:56
.Q9M JULIETA
Calcium Gluconate 3,250 mg/ 282.5 mls @ 0 mls/hr 01/03/24 08:00
Sodium Chloride IV 01/03/24 08:01
ONCE ONE
As Directed
Albumin Human 12.5 grams in 250 mls @ 1,666.667 mls/hr 01/05/24 08:00
Albumin 5% INTRACATH 01/05/24 09:56
.Q9M JULIETA
Calcium Gluconate 3,250 mg/ 282.5 mls @ 0 mls/hr 01/05/24 08:00
Sodium Chloride IV 01/05/24 08:01
ONCE ONE
As Directed
Albumin Human 12.5 grams in 250 mls @ 1,666.667 mls/hr 01/07/24 08:00
Albumin 5% INTRACATH 01/07/24 09:56
.Q9M JULIETA
Calcium Gluconate 3,250 mg/ 282.5 mls @ 0 mls/hr 01/07/24 08:00
Sodium Chloride IV 01/07/24 08:01
ONCE ONE
As Directed
Albumin Human 12.5 grams in 250 mls @ 1,666.667 mls/hr 01/09/24 08:00
Albumin 5% INTRACATH 01/09/24 09:56
.Q9M JULIETA
Calcium Gluconate 3,250 mg/ 282.5 mls @ 0 mls/hr 01/09/24 08:00
Sodium Chloride IV 01/09/24 08:01
ONCE ONE
As Directed
Insulin Aspart 0 units 12/27/23 11:30 12/31/23 18:11
Insulin Aspart Low Resistance 300 Units/3 Ml Pen.Injctr SC 01/24/24 11:29 2 units
AC JULIETA Administration
Protocol
Polyethylene Glycol 17 grams 12/26/23 20:13
Polyethylene Glycol Powder 17 Grams Packet PO 01/23/24 20:12
DAILYPRN PRN
constipation
Prochlorperazine Maleate 10 mg 12/29/23 12:59
Prochlorperazine 10 Mg Tablet PO 01/26/24 12:58
Q8HPRN PRN
hiccups
Senna/Docusate Sodium 1 tablet 12/26/23 20:13
Docusate W/Senna (Paige-Colace) Tablet PO 01/23/24 20:12
BIDPRN PRN
constipation
Sodium Chloride 0 flush 12/26/23 21:00
Sodium Chloride 0.9% (Flush) Syringe IV 01/23/24 20:59
PER PROTOCOL JULIETA
[2024-01-01] MEDS: PEPCID 20 MG PO ×2 (09:45→20:00)
[2024-01-01] MEDS: VITAMIN B-12 1000 MCG PO (09:45)
[2024-01-01] MEDS: NOVOLOG FLEXPEN-LOW RESISTANCE SC ×2 (10:57→12:23)
--- NOTE | 2024-01-01 11:22 | W.PN.ID1 ---
Date of Service
Date of Service: January 01, 2024
Today's Communication
Continue current measures.
Assessment / Plan
Generalized numbness
Gait disturbance/speech dysfunction
- Suspected demyelinating illness; possible ADEM
Hx recent URI (~3 wk prior to symptom onset)
Hx recent dog bite (dog UTD with vaccines)
Recommendations:
At present, symptomatology and history not consistent with an infectious etiology. Lyme serology and CSF PCR negative. Coinfection unlikely, although patient/family would like further testing.
Serology for Babesia, Anaplasma and Ehrlichia pending
Patient starting plasmapheresis.
Woodworking Machine Feeder of dog contacted yesterday and dog is fine and without any behavior disturbances.
At present, no need for antibiotics .
Will continue to follow along with you peripherally.
Chief Complaint
-: Other (Encephalomyelitis)
Subjective / Review of Systems
No significant changes from yesterday.
Vital Signs / Physical Exam
Vital Signs
Vital Signs
Temp Pulse Resp BP Pulse Ox
97.8 F 94 16 154/110 98
01/01/24 11:12 01/01/24 10:00 01/01/24 10:00 01/01/24 10:00 01/01/24 08:30
Physical Exam
Constitutional: No Acute Distress, Comfortable and Non-toxic
Eyes: Sclera Anicteric
Cardiovascular: Regular Rate
Pulmonary: Non Labored
Gastrointestinal: Non Distended
Neurological: Awake and Alert
Psychological: Calm
Lines: Other (Right IJ plasmaphresis cath.)
Objective Data
Lab Data
Lab Results
01/01/24 04:43
01/01/24 04:43
ESR 1 mm/hour (0-20) 12/26/23 16:17
PT 13.5 Sec (11.4-14.6) 12/31/23 13:33
INR 1.03 12/31/23 13:33
APTT 22.3 Sec (23.4-35.0) L 12/31/23 13:33
Estimated Creat Clear > 125 ml/min 01/01/24 04:43
Total Bilirubin 0.5 mg/dl (0.2-1.3) 12/26/23 16:17
AST 29 U/L (17-59) 12/26/23 16:17
ALT 26 U/L (0-50) 12/26/23 16:17
Alkaline Phosphatase 78 U/L (38-126) 12/26/23 16:17
Most recent labs reviewed.
Micro Results:
12/28/23 17:32 CSF Culture - Preliminary
Csf No Growth After 72 Hours
Gram Stain - Preliminary
12/28/23 17:32 Meningitis/Encephalitis Panel (PCR) - Final
Csf
Meningitis Panel, CSF by PCR Final 01/17/24-194
Escherichia coli K1 Not Detected
Haemophilus influenzae Not Detected
Listeria monocytogenes Not Detected
Neisseria meningitidis Not Detected
Cytomegalovirus (CMV) Not Detected
Streptococcus agalactiae Not Detected
Streptococcus pneumoniae Not Detected
Enterovirus Not Detected
Herpes simplex virus 1 Not Detected
Herpes simplex virus 2 Not Detected
Human herpesvirus 6 Not Detected
Human parechovirus Not Detected
Varicella zoster virus Not Detected
C. neoformans/gattii Not Detected
12/26/23
16:17
Lyme Screen IgG & IgM (serum) Negative
Imaging:
12/27/2023 MRI brain without contrast: There are numerous focal regions of abnormal increased diffusion-weighted signal with increased T2 and FLAIR signal, and no restricted diffusion, with increased signal intensity on ADC images. Findings are
highly suggestive of a demyelinating process. Main differential considerations of acute disseminated encephalomyelitis and multiple sclerosis. Regions of multiple infarction would not be expected to have this appearance on MRI. Neoplastic disease
could be considered, but felt to be significantly less likely.
Care Review
Plan reviewed with: Physician (Neurology)
[2024-01-01] MEDS: CALCIUM GLUCONATE 10% INJECTION 282.5 MG IV (12:45)
[2024-01-01] MEDS: HEPARIN 10000 UNITS INTRACATH (12:45)
--- NOTE | 2024-01-01 13:38 | W.PN.ONC ---
Today's Communication / Plan
-
He tolerated the initial plasmapheresis well today. We will plan on an every other day regimen, tentatively for 5 treatments.
Impression
Impression
demyelinating neurologic process
Plan
Plan
1. Demyelinating neurologic process
-hematology has been consulted to assist w/ facilitating plasmapheresis as per Dr. Crawford, neurology, recommendations
-discussed patient's clinical situation w/ [facility] pheresis services who assisted w/ replacement fluid recommendations
-as per [facility] - replacement fluid should consist of 3.25L 5% albumin - along w/ 3.25g calcium gluconate w/ each treatment
-above replacement fluid discussed w/ pharmacy and ordered
-check daily coags - PT/INR, aPTT and fibrinogen - daily CBC
-central line for pheresis to be placed w/ IR tomorrow am w/ plans for 1st treatment in am
will continue to follow with you.
Subjective/Objective
Subjective/Objective
He was just a little lightheaded at the end of his pheresis session. That has now normalized. He has no other complaints. Physical examination is unchanged.
Vital Signs:
Vital Signs
Temp Pulse Resp BP Pulse Ox
97.8 F 94 16 154/110 98
01/01/24 11:12 01/01/24 10:00 01/01/24 10:00 01/01/24 10:00 01/01/24 08:30
Lab Results:
Laboratory Data
WBC 13.7 10^3/uL (4.8-10.8) H 01/01/24 04:43
Hgb 14.7 g/dL (13.0-18.0) 01/01/24 04:43
Plt Count 232 10^3/uL (130-400) 01/01/24 04:43
PT 13.5 Sec (11.4-14.6) 12/31/23 13:33
INR 1.03 12/31/23 13:33
APTT 22.3 Sec (23.4-35.0) L 12/31/23 13:33
eGFR > 60.00 01/01/24 04:43
Orders
Orders
Orders From Last 24 Hours
01/02/24 06:00
Basic Metabolic Panel IN AM
CMP [Comprehensive Metabolic Panel] IN AM
Complete Blood Count/With Diff IN AM
Fibrinogen IN AM
PTT IN AM
Prothrombin Time IN AM
01/03/24 06:00
Basic Metabolic Panel IN AM
Complete Blood Count/With Diff IN AM
Fibrinogen IN AM
PTT IN AM
Prothrombin Time IN AM
01/04/24 06:00
Basic Metabolic Panel IN AM
Complete Blood Count/With Diff IN AM
Fibrinogen IN AM
PTT IN AM
Prothrombin Time IN AM
01/05/24 06:00
Basic Metabolic Panel IN AM
Complete Blood Count/With Diff IN AM
Fibrinogen IN AM
PTT IN AM
Prothrombin Time IN AM
01/06/24 06:00
Basic Metabolic Panel IN AM
Complete Blood Count/With Diff IN AM
Fibrinogen IN AM
PTT IN AM
Prothrombin Time IN AM
01/07/24 06:00
Basic Metabolic Panel IN AM
Complete Blood Count/With Diff IN AM
Fibrinogen IN AM
PTT IN AM
Prothrombin Time IN AM
01/08/24 06:00
Basic Metabolic Panel IN AM
Complete Blood Count/With Diff IN AM
Fibrinogen IN AM
PTT IN AM
Prothrombin Time IN AM
01/09/24 06:00
Basic Metabolic Panel IN AM
Complete Blood Count/With Diff IN AM
Fibrinogen IN AM
PTT IN AM
Prothrombin Time IN AM
01/10/24 06:00
Basic Metabolic Panel IN AM
Complete Blood Count/With Diff IN AM
Fibrinogen IN AM
PTT IN AM
Prothrombin Time IN AM
01/11/24 06:00
Basic Metabolic Panel IN AM
Fibrinogen IN AM
PTT IN AM
Prothrombin Time IN AM
--- NOTE | 2024-01-01 14:34 | CM ---
Addendum entered by Lissette King RN 01/01/24 15:07:
Auth still pending, Updated Shaina at [facility], Shaina stated if auth comes in over week-end to please call her at [phone] and she will check her voice mails and help facilitate.
Original Note:
Call received by Shaina at [facility] to state that she attempted to get earlier auth this morning and was unable to,Made Shaina aware that we will attempt to get auth for the transfer from to [place]. Auth initiated and clinical was sent, pending
auth number is [id number] , UR nurse spoke to Kathrine V. at . Per Kathrine auth will need to be referred to their Janitorial Services Supervisor. They will fax outcome of the Janitorial Services Supervisor review to the fax number [phone]. Update to .
--- NOTE | 2024-01-01 15:36 | PTCARENOTE ---
Addendum entered by Justo Nassar RN 01/01/24 19:13:
Updated [facility]. [phone]
Original Note:
Patient had R IJ catheter placed and completed 1st plasmapheresis session. Tolerated well. VSS. Family and girlfriend at bedside. Continuing to closely monitor.
--- NOTE | 2024-01-01 17:22 | CM ---
Call placed to [facility] at [phone], per Bashir auth is still pending at this time. Once their medical aides teacher makes a determination, they will fax determination to the fax number. Update to 's working Week-end.
[2024-01-01] MEDS: LOVENOX 40 MG SC (18:29)
--- NOTE | 2024-01-01 18:36 | W.PN.HOSP.TC ---
Today's Communication/Plan
-
Patient reports improvement in his symptoms before treatment today
Patient tolerated plasmapheresis, next treatment is on Thursday
Awaiting insurance determination for [place] Transfer
Assessment / Plan
Assessment / Plan
Physical Exam
General: Not in acute distress
HEENT: Normocephalic, Atraumatic
Respiratory: Clear to Auscultation Bilaterally
Cardiac: Regular Rhythm and S1/S2
GI: Soft, Nontender, Nondistended and Normal Bowel Sounds
Skin: Warm and Dry
Neuro: Awake, Alert, Oriented x3. Cranial Nerves grossly intact. Spontaneous movements in all extremities intact.
Psych: Calm and Intact Judgement/Insight
Assessment/Plan
HPI: 33-year-old male with history of psoriasis on Tremfya biologic every 8 weeks (the last time was 3 weeks ago), presented to the hospital complaining of 1 week history of diffuse numbness mostly in the extremities.
Symptoms started in both feet and ascend proximally gradually without any weakness. Also no vision change, chest pain/shortness of breath or any seizure-like activity or syncope.
Overall feels tired and fatigued and progressively getting worse with exertional shortness of breath. Denies any trauma or accident or any head injury. Admits he feels cold with no fever or chills.
No sick contacts or recent travel.
Admit smokes occasionally and uses marijuana occasionally.
Workup in the ER basically showed no acute abnormality, with a CT brain concerning for questionable old subacute lacunar infarct.
A/P:
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
Continue methylprednisolone for 5 doses -- today is day 5
Plasmapharesis.
Follow lumbar puncture results, initial results noted
Follow Lyme studies -- serology negative and CSF PCR negative
Infectious Disease consulted, appreciate their evaluation and recommendations.
No antibiotics needed at this time.
TSH WNL at 0.69
Neurology consulted, recommendations, appreciated
Interventional Radiology consulted: patient received Central Line for plasmapheresis - started today -- will continue every other day for 5 treatments
Hematology also consulted given that patient is getting plasmapharesis
Checked daily coags - PT/INR, aPTT and fibrinogen - daily CBC
Continue Vitamin B12 given marginally lower (but within normal limits) Vitamin B12
On December 30, 2023, I spoke with neurologists Dr. Byrd and Dr. Pastor at [facility], I discussed patient's case with them, they accepted patient as an elective transfer to [facility]. Case management working on
insurance authorization, awaiting determination.
# psoriasis
Pt on Tremfya or Guselkumab
# Smoking cigarette and marijuana occasionally
UDS negative
Diet: Patient can continue regular diet with thin liquids per speech evaluation (but did have one instance of aspiration right after burping)
DVT prophylaxis SCDs and Lovenox
Anticipated Discharge: > 48 hours
Subjective/Interval History
-
Date of Service: January 01, 2024
Patient and his girlfriend reported that patient's symptoms are more improved today, his gait is better and his cough is better.
Objective Data
-
Vital Signs:
Vital Signs
Temp Pulse Resp BP Pulse Ox
97.7 F 72 14 146/94 97
01/01/24 15:57 01/01/24 16:00 01/01/24 16:00 01/01/24 16:00 01/01/24 13:15
I&O
12/31/23 01/01/24 01/02/24
06:59 06:59 06:59
Intake Total 1200 / 1200 1100 / 1100
Balance 1200 / 1200 1100 / 1100
[2024-01-01] MEDS: TYLENOL 650 MG PO (20:00)
[2024-01-02] VITALS (14 sets, daily range): BP systolic 121–146; BP diastolic 40–97; PULSE 113–126
--- NOTE | 2024-01-02 01:52 | PTCARENOTE ---
assumed care of patient- able to make needs known. complaints of some discomfort to right IJ site- PRN tylenol given. pt x1 assist to bathroom. still with numbness and tingling to face, arms, legs. care ongoing.
--- NOTE | 2024-01-02 05:07 | RESPNOTE ---
pt had requested if asleep at 02:00 to please let him sleep, will see pt, when he wakes up for his VC
[2024-01-02 05:42] LABS: % Basophils 0.9 % (0-2); % Eosinophils 0.4 % (0-6); % Immature Granulocytes 4.6 % (0-0.5); % Lymphocytes 22.7 % (20.5-51.1); % Monocytes 9.5 % (1.7-9.3); % Neutrophils 61.9 % (42.2-75.2); Absolute Basophils 0.1 10^3/uL (0-0.2); Absolute Immature Granulocytes 0.5 10^3/uL (0-0.05); Absolute Lymphocytes 2.4 10^3/uL (1.2-3.4); Absolute Neutrophils 6.5 10^3/uL (1.4-6.5); Hematocrit 44.7 % (39.0-52.0); Hemoglobin 15.2 g/dL (13.0-18.0); Mean Corpuscular Hgb 30.5 pg (27.0-31.0); Mean Corpuscular Volume 89.8 fL (80.0-94.0); Nucleated Red Blood Cells % 0 % (-); Platelet Count 170 10^3/uL (130-400); Red Blood Cell Count 4.98 10^6/uL (4.70-6.10); Red Cell Dist. Width 12.6 % (11.5-14.5); White Blood Cell Count 10.6 10^3/uL (4.8-10.8)
[2024-01-02 05:52] LABS: INR 1.17
[2024-01-02 05:53] LABS: APTT 25.5 Sec (23.4-35.0)
[2024-01-02 06:04] LABS: ALT (SGPT) 15 U/L (0-50); AST (SGOT) 14 U/L (17-59); Albumin 3.6 g/dl (3.5-5.0); Alkaline Phosphatase 32 U/L (38-126); Blood Urea Nitrogen 18 mg/dl (9-20); Calcium 8.9 mg/dl (8.4-10.2); Carbon Dioxide 31 mmol/L (22-30); Chloride 101 mmol/L (98-107); Estimated Creatinine Clearance > 125 ml/min; Glucose 89 mg/dl (70-99); Potassium 3.7 mmol/L (3.5-5.1); Sodium 138 mmol/L (135-145); Total Bilirubin 0.4 mg/dl (0.2-1.3); eGFR > 60.00
[2024-01-02 06:22] LABS: Fibrinogen 115 MG/DL (199-459)
--- NOTE | 2024-01-02 06:39 | PTCARENOTE ---
fibrinogen came back critical this AM-115. notified covering [employer].
[2024-01-02] MEDS: PEPCID 20 MG PO ×2 (08:02→19:39)
[2024-01-02] MEDS: VITAMIN B-12 1000 MCG PO (08:03)
--- NOTE | 2024-01-02 08:41 | W.PN.NEURO.1 ---
Today's Communication / Plan
-
patient to receive 2nd PLEX today
Neuro Assessment/Plan
Assessment
IMPRESSIONS/RECOMMENDATIONS:
Abrupt change in generalized numbness, unsteadiness, and speech changes
Most likely due to an acute demyelinating illness. The patient experienced a mild upper respiratory tract illness approximately 2 weeks prior to development of generalized symptoms leaving the possibility of acute disseminating encephalomyelitis.
Based on the nature of the lesions, timeframe, and mildly elevated WBC count, a lesser possibility is multiple sclerosis
Completed methylprednisolone for 5 doses, with the fifth dose on 12/31/2023
Negative oligoclonal bands
Plan
Appreciate consult from Hematology due to need for plasma exchange 5 treatments, 5 L; patient to receive 2nd PLEX today
We will follow lumbar puncture results
Started B12 replacement due to marginally low levels
Will continue to follow patient.
Subjective/Objective
Subjective Data
Date of Service: January 02, 2024
Improved ambulation.
Coldness sensation persistent.
Objective Data
Vital Signs
Temp Pulse Resp BP Pulse Ox
36.6 C 56 17 125/82 95
01/02/24 07:18 01/02/24 06:00 01/02/24 06:00 01/02/24 06:00 01/01/24 20:05
Lab Results
01/02/24 05:33
01/02/24 05:33
PT 15.0 Sec (11.4-14.6) H 01/02/24 05:33
INR 1.17 01/02/24 05:33
APTT 25.5 Sec (23.4-35.0) 01/02/24 05:33
Sodium 138 mmol/L (135-145) 01/02/24 05:33
Potassium 3.7 mmol/L (3.5-5.1) 01/02/24 05:33
BUN 18 mg/dl (9-20) 01/02/24 05:33
Glucose 89 mg/dl (70-99) 01/02/24 05:33
Calcium 8.9 mg/dl (8.4-10.2) 01/02/24 05:33
Vitamin B12 412 pg/ml (239-931) 12/27/23 07:07
Ur Buprenorphine Negative (Negative) 12/26/23 21:47
Patient Allergies
No Known Allergies Allergy (Verified 12/26/23 16:25)
Review of Systems
-
History Source: Patient
All other systems: Reviewed and negative
EENT: Swallowing Difficulty; Negative Decreased Vision
Respiratory: Other (GUIDRY, improved with continued ambulation); Negative Trouble Breathing
Cardiac: Negative Chest Pain
Abdomen/GI: Negative Incontinence of Stool
Genitourinary: Negative Incontinence
Musculoskeletal: Negative Back Pain or Neck Pain
Neuro: Dizzy; Negative Headache
Physical Exam
-
General: No Apparent Distress and Appears Stated Age
Eyes: Round OU, [place] Conjunctivae and No Ptosis
HEENT: Anicteric and Moist Mucous Membranes
Neck: Full Range of Motion
Respiratory: No Dyspnea
Cardiac: No JVD
GI: Non-distended
Skin: Unremarkable
Extremities: No Clubbing, No Cyanosis and No Edema
Psych: Intact Judgement/Insight
Extended Neurological Exam
Mood & Affect: Mood Unremarkable and Affect Unremarkable
Attention Span & Concentration: Awake, Alert, Interactive and No Difficulty with 2 Step Request
Memory: Unremarkable
Tremor: Hand Tremor Absent and Head Tremor Absent
Involuntary Movement: None
Speech: Quality Unremarkable and Quantity Unremarkable
Cranial Nerve II: Left Eye: Pupillary Size Unremarkable and Visual Vázquez Grossly Intact
Cranial Nerve II: Right Eye: Pupillary Size Unremarkable and Visual Vázquez Grossly Intact
Cranial Nerves III, IV, : Extraocular Movement: Extraocular Movement Full in all Directions
Cranial Nerve VII: Facial Symmetry: Normal Facial Symmetry
Cranial Nerve VIII: Hearing: Unremarkable Hearing to Normal Conversational Volume
Muscle Strength, Overall: Spontaneously Moves
Muscle Bulk & Tone: Bulk Unremarkable and Tone Unremarkable
Pronator Drift: No Drift in Upper Extremities
Coordination: Reaches for Objects without Difficulty
Data Reviewed
-
Labs: Pending
Reviewed with: Physician, Patient and Family
Old Records: Summarized
Past History
Past History
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
ED Past Surgical History: None
Social History
Tobacco: Non-smoker
Alcohol: Occasional
Drug: Marijuana and Cocaine
Personal: Single
Living: with family
Employment: Employed ([employer])
Family History
Family History: Other (Reviewed and non-contributory)
Medications
-
Medications:
Generic Name Dose Route Start Last Admin
Trade Name Freq PRN Reason Stop Dose Admin
Acetaminophen 650 mg 12/26/23 20:13 01/01/24 20:00
Acetaminophen 325 Mg Tablet PO 01/23/24 20:12 650 mg
Q4HPRN PRN Administration
mild pain/DENNIS/temp> 100.4F
Bisacodyl 10 mg 12/26/23 20:13
Bisacodyl 10 Mg Rectal Suppository RECTAL 01/23/24 20:12
[id number] PRN
constipation
Cyanocobalamin 1,000 mcg 12/28/23 12:00 01/02/24 08:03
Cyanocobalamin 1,000 Mcg Tablet PO 01/25/24 11:59 1,000 mcg
DAILY JULIETA Administration
Enoxaparin Sodium 40 mg 12/30/23 18:00 01/01/24 18:29
Enoxaparin Sodium 40 Mg/0.4 Ml Syringe SC 01/27/24 17:59 40 mg
QPM JULIETA Administration
Famotidine 20 mg 12/29/23 20:00 01/02/24 08:02
Famotidine 20 Mg Tablet PO 01/26/24 19:59 20 mg
BID JULIETA Administration
Heparin Sodium 0 units 01/03/24 08:00
Heparin (1000 Units/Ml) 10,000 Units/10 Ml Vial INTRACATH 01/03/24 08:01
ONCE ONE
Heparin Sodium 0 units 01/05/24 08:00
Heparin (1000 Units/Ml) 10,000 Units/10 Ml Vial INTRACATH 01/05/24 08:01
ONCE ONE
Heparin Sodium 0 units 01/07/24 08:00
Heparin (1000 Units/Ml) 10,000 Units/10 Ml Vial INTRACATH 01/07/24 08:01
ONCE ONE
Heparin Sodium 0 units 01/09/24 08:00
Heparin (1000 Units/Ml) 10,000 Units/10 Ml Vial INTRACATH 01/09/24 08:01
ONCE ONE
Albumin Human 12.5 grams in 250 mls @ 1,666.667 mls/hr 01/03/24 08:00
Albumin 5% INTRACATH 01/03/24 09:56
.Q9M JULIETA
Calcium Gluconate 3,250 mg/ 282.5 mls @ 0 mls/hr 01/03/24 08:00
Sodium Chloride IV 01/03/24 08:01
ONCE ONE
As Directed
Albumin Human 12.5 grams in 250 mls @ 1,666.667 mls/hr 01/05/24 08:00
Albumin 5% INTRACATH 01/05/24 09:56
.Q9M JULIETA
Calcium Gluconate 3,250 mg/ 282.5 mls @ 0 mls/hr 01/05/24 08:00
Sodium Chloride IV 01/05/24 08:01
ONCE ONE
As Directed
Albumin Human 12.5 grams in 250 mls @ 1,666.667 mls/hr 01/07/24 08:00
Albumin 5% INTRACATH 01/07/24 09:56
.Q9M JULIETA
Calcium Gluconate 3,250 mg/ 282.5 mls @ 0 mls/hr 01/07/24 08:00
Sodium Chloride IV 01/07/24 08:01
ONCE ONE
As Directed
Albumin Human 12.5 grams in 250 mls @ 1,666.667 mls/hr 01/09/24 08:00
Albumin 5% INTRACATH 01/09/24 09:56
.Q9M JULIETA
Calcium Gluconate 3,250 mg/ 282.5 mls @ 0 mls/hr 01/09/24 08:00
Sodium Chloride IV 01/09/24 08:01
ONCE ONE
As Directed
Polyethylene Glycol 17 grams 12/26/23 20:13
Polyethylene Glycol Powder 17 Grams Packet PO 01/23/24 20:12
DAILYPRN PRN
constipation
Prochlorperazine Maleate 10 mg 12/29/23 12:59
Prochlorperazine 10 Mg Tablet PO 01/26/24 12:58
Q8HPRN PRN
hiccups
Senna/Docusate Sodium 1 tablet 12/26/23 20:13
Docusate W/Senna (Paige-Colace) Tablet PO 01/23/24 20:12
BIDPRN PRN
constipation
Sodium Chloride 0 flush 12/26/23 21:00
Sodium Chloride 0.9% (Flush) Syringe IV 01/23/24 20:59
PER PROTOCOL JULIETA
--- NOTE | 2024-01-02 13:12 | W.PN.HOSP.TC ---
Today's Communication/Plan
-
Stable
Next plasmapheresis treatment tomorrow, as per licensed insurance sales agent
Assessment / Plan
Assessment / Plan
Physical Exam
General: Not in acute distress
HEENT: Normocephalic, Atraumatic
Respiratory: Clear to Auscultation Bilaterally
Cardiac: Regular Rhythm and S1/S2
GI: Soft, Nontender, Nondistended and Normal Bowel Sounds
Skin: Warm and Dry
Neuro: Awake, Alert, Oriented x3. Cranial Nerves grossly intact. Spontaneous movements in all extremities intact.
Psych: Calm and Intact Judgement/Insight
Assessment/Plan
HPI: 33-year-old male with history of psoriasis on Tremfya biologic every 8 weeks (the last time was 3 weeks ago), presented to the hospital complaining of 1 week history of diffuse numbness mostly in the extremities.
Symptoms started in both feet and ascend proximally gradually without any weakness. Also no vision change, chest pain/shortness of breath or any seizure-like activity or syncope.
Overall feels tired and fatigued and progressively getting worse with exertional shortness of breath. Denies any trauma or accident or any head injury. Admits he feels cold with no fever or chills.
No sick contacts or recent travel.
Admit smokes occasionally and uses marijuana occasionally.
Workup in the ER basically showed no acute abnormality, with a CT brain concerning for questionable old subacute lacunar infarct.
A/P:
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
Received methylprednisolone for 5 doses with the last day being December 31, 2023
Follow lumbar puncture results, initial results noted
Follow Lyme studies -- serology negative and CSF PCR negative
Infectious Disease consulted, appreciate their evaluation and recommendations.
No antibiotics needed at this time.
TSH WNL at 0.69
Neurology consulted, recommendations, appreciated
Interventional Radiology consulted: patient received Central Line for plasmapheresis - started on January 01, 2024 -- next treatment planned for January 03, 2024 -- tentative plan is to continue every other day for 5 treatments
Hematology also consulted given that patient is getting plasmapharesis
Checked daily coags - PT/INR, aPTT and fibrinogen - daily CBC
Hematology is aware that fibrinogen is low as of January 02, 2024: they will take a look, but may just repeat tomorrow morning and if still low, then [facility] may want to just change his replacement fluid
Continue Vitamin B12 given marginally lower (but within normal limits) Vitamin B12
On December 30, 2023, I spoke with neurologists Dr. Byrd and Dr. Pastor at [facility], I discussed patient's case with them, they accepted patient as an elective transfer to [facility]. Case management working on
insurance authorization, awaiting determination.
# psoriasis
Pt on Tremfya or Guselkumab
# Smoking cigarette and marijuana occasionally
UDS negative
Diet: Patient can continue regular diet with thin liquids per speech evaluation (but did have one instance of aspiration right after burping)
DVT prophylaxis SCDs and Lovenox
Anticipated Discharge: > 48 hours
Subjective/Interval History
-
Date of Service: January 02, 2024
Patient was seen and examined. He reported no new symptoms or complaints, he has been doing better than before with his gait and coughing. Still having numbness.
Objective Data
-
Labs:
Laboratory Results
01/02/24
05:33
WBC 10.6
Hgb 15.2
Hct 44.7
Plt Count 170 D
PT 15.0 H
INR 1.17
APTT 25.5
Sodium 138
Potassium 3.7
Chloride 101
Carbon Dioxide 31 H
BUN 18
Creatinine 0.8
Glucose 89
Calcium 8.9
Total Bilirubin 0.4
AST 14 L
ALT 15
Alkaline Phosphatase 32 L
Vital Signs:
Vital Signs
Temp Pulse Resp BP Pulse Ox
97.9 F 82 22 124/73 95
01/02/24 11:25 01/02/24 11:11 01/02/24 11:11 01/02/24 11:11 01/01/24 20:05
I&O
01/01/24 01/02/24 01/03/24
06:59 06:59 06:59
Intake Total 1100 / 1100
Balance 1100 / 1100
[2024-01-02 17:04] LABS: Magnesium 2.1 mg/dl (1.6-2.3)
[2024-01-02] MEDS: LOVENOX 40 MG SC (18:15)
[2024-01-03] VITALS (17 sets, daily range): BP systolic 119–149; BP diastolic 74–100; PULSE 102–106; O2SAT 94
[2024-01-03 05:38] LABS: % Basophils 0.7 % (0-2); % Eosinophils 1.5 % (0-6); % Immature Granulocytes 5.5 % (0-0.5); % Lymphocytes 18.2 % (20.5-51.1); % Monocytes 8.5 % (1.7-9.3); % Neutrophils 65.6 % (42.2-75.2); Absolute Basophils 0.1 10^3/uL (0-0.2); Absolute Eosinophils 0.2 10^3/uL (0-0.7); Absolute Immature Granulocytes 0.6 10^3/uL (0-0.05); Absolute Lymphocytes 1.9 10^3/uL (1.2-3.4); Absolute Monocytes 0.9 10^3/uL (0.1-0.6); Hemoglobin 14.6 g/dL (13.0-18.0); Mean Corp Hgb Conc. 35.6 g/dL (33.0-37.0); Mean Platelet Volume 9.6 fL (7.4-10.4); Nucleated Red Blood Cells % 0 % (-); Platelet Count 178 10^3/uL (130-400); Red Blood Cell Count 4.71 10^6/uL (4.70-6.10); Red Cell Dist. Width 12.6 % (11.5-14.5); White Blood Cell Count 10.6 10^3/uL (4.8-10.8)
[2024-01-03 05:48] LABS: PT 13.2 Sec (11.4-14.6)
[2024-01-03 05:49] LABS: APTT 24.9 Sec (23.4-35.0); Fibrinogen 209 MG/DL (199-459)
[2024-01-03 06:21] LABS: Blood Urea Nitrogen 17 mg/dl (9-20); Calcium 8.8 mg/dl (8.4-10.2); Carbon Dioxide 29 mmol/L (22-30); Chloride 101 mmol/L (98-107); Estimated Creatinine Clearance > 125 ml/min; Glucose 99 mg/dl (70-99); Potassium 3.5 mmol/L (3.5-5.1); Sodium 136 mmol/L (135-145); eGFR > 60.00
[2024-01-03] MEDS: PEPCID 20 MG PO ×2 (08:14→20:27)
[2024-01-03] MEDS: VITAMIN B-12 1000 MCG PO (08:14)
[2024-01-03] MEDS: CALCIUM GLUCONATE 10% INJECTION 282.5 MG IV (08:46)
--- NOTE | 2024-01-03 08:51 | W.PN.HOSP.TC ---
Today's Communication/Plan
-
2nd Plasmapheresis today
Patient stable
Assessment / Plan
Assessment / Plan
Physical Exam
General: Not in acute distress
HEENT: Normocephalic, Atraumatic
Respiratory: Clear to Auscultation Bilaterally
Cardiac: Regular Rhythm and S1/S2
GI: Soft, Nontender, Nondistended and Normal Bowel Sounds
Skin: Warm and Dry
Neuro: Awake, Alert, Oriented x3. Cranial Nerves grossly intact. Strength 5/5 bilaterally in upper and lower extremities. Sensation grossly intact bilaterally with some numbness.
Psych: Calm and Intact Judgement/Insight
Assessment/Plan
HPI: 33-year-old male with history of psoriasis on Tremfya biologic every 8 weeks (the last time was 3 weeks ago), presented to the hospital complaining of 1 week history of diffuse numbness mostly in the extremities.
Symptoms started in both feet and ascend proximally gradually without any weakness. Also no vision change, chest pain/shortness of breath or any seizure-like activity or syncope.
Overall feels tired and fatigued and progressively getting worse with exertional shortness of breath. Denies any trauma or accident or any head injury. Admits he feels cold with no fever or chills.
No sick contacts or recent travel.
Admit smokes occasionally and uses marijuana occasionally.
Workup in the ER basically showed no acute abnormality, with a CT brain concerning for questionable old subacute lacunar infarct.
A/P:
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
Received methylprednisolone for 5 doses with the last day being December 31, 2023
Follow lumbar puncture results, initial results noted
Follow Lyme studies -- serology negative and CSF PCR negative
Infectious Disease consulted, appreciate their evaluation and recommendations.
No antibiotics needed at this time.
TSH WNL at 0.69
Neurology consulted, recommendations, appreciated
Interventional Radiology consulted: patient received Central Line for plasmapheresis - started on January 01, 2024 -- next treatment planned for January 03, 2024 -- tentative plan is to continue every other day for 5 treatments
Hematology also consulted given that patient is getting plasmapheresis
Checked daily coags - PT/INR, aPTT and fibrinogen - daily CBC
Continue Vitamin B12 given marginally lower (but within normal limits) Vitamin B12
On December 30, 2023, I spoke with neurologists Dr. Byrd and Dr. Pastor at [facility], I discussed patient's case with them, they accepted patient as an elective transfer to [facility]. Case management working on
insurance authorization, awaiting determination.
# psoriasis
Pt on Tremfya or Guselkumab
# Smoking cigarette and marijuana occasionally
UDS negative
Diet: Patient can continue regular diet with thin liquids per speech evaluation (but did have one instance of aspiration right after burping)
DVT prophylaxis SCDs and Lovenox
Anticipated Discharge: > 48 hours
Subjective/Interval History
-
Date of Service: January 03, 2024
Patient was seen and examined. He denied any new symptoms or complaints.
Objective Data
-
Labs:
Laboratory Results
01/03/24
05:26
WBC 10.6
Hgb 14.6
Hct 41.0
Plt Count 178
PT 13.2
INR 1.00
APTT 24.9
Sodium 136
Potassium 3.5
Chloride 101
Carbon Dioxide 29
BUN 17
Creatinine 0.7
Glucose 99
Calcium 8.8
Vital Signs:
Vital Signs
Temp Pulse Resp BP Pulse Ox
97.8 F 64 13 123/85 95
01/03/24 07:48 01/03/24 04:00 01/03/24 04:00 01/03/24 04:00 01/02/24 20:31
I&O
01/02/24 01/03/24 01/04/24
06:59 06:59 06:59
Intake Total 240 / 240
Balance 240 / 240
--- NOTE | 2024-01-03 09:52 | W.PN.NEURO.1 ---
Today's Communication / Plan
-
Appreciate consult from Hematology due to need for plasma exchange 5 treatments, 5 L; patient receiving 2nd PLEX today
We will follow lumbar puncture results
Started B12 replacement due to marginally low levels
Neuro Assessment/Plan
Assessment
IMPRESSIONS/RECOMMENDATIONS:
Abrupt change in generalized numbness, unsteadiness, and speech changes
Most likely due to an acute demyelinating illness. The patient experienced a mild upper respiratory tract illness approximately 2 weeks prior to development of generalized symptoms leaving the possibility of acute disseminating encephalomyelitis.
Based on the nature of the lesions, timeframe, and mildly elevated WBC count, a lesser possibility is multiple sclerosis
Completed methylprednisolone for 5 doses, with the fifth dose on 12/31/2023
Negative oligoclonal bands
Plan
Appreciate consult from Hematology due to need for plasma exchange 5 treatments, 5 L; patient receiving 2nd PLEX today
We will follow lumbar puncture results
Started B12 replacement due to marginally low levels
Continue rehabilitation
Will continue to follow patient.
Subjective/Objective
Subjective Data
Date of Service: January 03, 2024
Improved walking.
Objective Data
Vital Signs
Temp Pulse Resp BP Pulse Ox
36.6 C 64 13 123/85 95
01/03/24 07:48 01/03/24 04:00 01/03/24 04:00 01/03/24 04:00 01/02/24 20:31
Lab Results
01/03/24 05:26
01/03/24 05:26
PT 13.2 Sec (11.4-14.6) 01/03/24 05:26
INR 1.00 01/03/24 05:26
APTT 24.9 Sec (23.4-35.0) 01/03/24 05:26
Sodium 136 mmol/L (135-145) 01/03/24 05:26
Potassium 3.5 mmol/L (3.5-5.1) 01/03/24 05:26
BUN 17 mg/dl (9-20) 01/03/24 05:26
Glucose 99 mg/dl (70-99) 01/03/24 05:26
Calcium 8.8 mg/dl (8.4-10.2) 01/03/24 05:26
Vitamin B12 412 pg/ml (239-931) 12/27/23 07:07
Ur Buprenorphine Negative (Negative) 12/26/23 21:47
Patient Allergies
No Known Allergies Allergy (Verified 12/26/23 16:25)
Review of Systems
-
History Source: Patient
All other systems: Reviewed and negative
EENT: Swallowing Difficulty; Negative Decreased Vision
Respiratory: Negative Trouble Breathing
Cardiac: Negative Chest Pain
Physical Exam
-
General: No Apparent Distress and Appears Stated Age
Eyes: Round OU, [place] Conjunctivae and No Ptosis
HEENT: Anicteric and Moist Mucous Membranes
Neck: Full Range of Motion
Respiratory: No Dyspnea
Cardiac: No JVD
GI: Non-distended
Skin: Unremarkable
Extremities: No Clubbing, No Cyanosis and No Edema
Psych: Intact Judgement/Insight
Extended Neurological Exam
Mood & Affect: Mood Unremarkable and Affect Unremarkable
Attention Span & Concentration: Awake, Alert and Interactive
Memory: Unremarkable
Tremor: Hand Tremor Absent and Head Tremor Absent
Speech: Quality Unremarkable and Quantity Unremarkable
Cranial Nerve II: Left Eye: Pupillary Size Unremarkable and Visual Vázquez Grossly Intact
Cranial Nerve II: Right Eye: Pupillary Size Unremarkable and Visual Vázquez Grossly Intact
Cranial Nerves III, IV, : Extraocular Movement: Grossly Intact
Cranial Nerve VII: Facial Symmetry: Normal Facial Symmetry
Cranial Nerve VIII: Hearing: Unremarkable Hearing to Normal Conversational Volume
Muscle Strength, Overall: Spontaneously Moves
Muscle Bulk & Tone: Bulk Unremarkable and Tone Unremarkable
Coordination: Reaches for Objects without Difficulty
--- NOTE | 2024-01-03 15:48 | PTCARENOTE ---
assumed care of pt from previous RN. pt aaox3, SR/SB on the monitor. VSS. Pt walking around unit using walker. Plasmapheresis completed w/ rhoda dobbs RN without difficulty. Pt offering no complaints throughout shift.
--- NOTE | 2024-01-03 16:11 | W.PN.ONC ---
Today's Communication / Plan
-
cont pheresis as recommended by neurology - every other day x5
2nd treatment today
fibrinogen adequate
follow daily PT/INR, aPTT, and fibrinogen as well as CBC
Impression
Impression
demyelinating neurologic process
Plan
Plan
1. Demyelinating neurologic process
-hematology has been consulted to assist w/ facilitating plasmapheresis as per Dr. Crawford, neurology, recommendations
-tolerating pheresis w/o significant issues - 2nd treatment today - w/ 5 planned every other day
-fibrinogen 209 today
-as per [facility] - replacement fluid should consist of 3.25L 5% albumin - along w/ 3.25g calcium gluconate w/ each treatment
-check daily coags - PT/INR, aPTT and fibrinogen - daily CBC
will continue to follow with you.
Subjective/Objective
Subjective/Objective
no new complaints
Vital Signs:
Vital Signs
Temp Pulse Resp BP Pulse Ox
97.8 F 96 17 125/84 95
01/03/24 11:29 01/03/24 14:50 01/03/24 14:50 01/03/24 14:50 01/02/24 20:31
Lab Results:
Laboratory Data
WBC 10.6 10^3/uL (4.8-10.8) 01/03/24 05:26
Hgb 14.6 g/dL (13.0-18.0) 01/03/24 05:26
Plt Count 178 10^3/uL (130-400) 01/03/24 05:26
PT 13.2 Sec (11.4-14.6) 01/03/24 05:26
INR 1.00 01/03/24 05:26
APTT 24.9 Sec (23.4-35.0) 01/03/24 05:26
eGFR > 60.00 01/03/24 05:26
Orders
Orders
Orders From Last 24 Hours
01/03/24 08:00
Albumin Human 5% 250 ml [Albumin 5%] 12.5 grams in 250 ml INTRACATH 1,666.667 mls/hr
Calcium Gluconate [Calcium Gluconate 10% Injection] 3,250 mg 0.9% Sodium Chloride 250 ml [Nss] 250 ml IV ONCE
Heparin See Dose Instructions INTRACATH ONCE ONE
01/05/24 08:00
Albumin Human 5% 250 ml [Albumin 5%] 12.5 grams in 250 ml INTRACATH 1,666.667 mls/hr
Calcium Gluconate [Calcium Gluconate 10% Injection] 3,250 mg 0.9% Sodium Chloride 250 ml [Nss] 250 ml IV ONCE
Heparin See Dose Instructions INTRACATH ONCE ONE
01/07/24 08:00
Albumin Human 5% 250 ml [Albumin 5%] 12.5 grams in 250 ml INTRACATH 1,666.667 mls/hr
Calcium Gluconate [Calcium Gluconate 10% Injection] 3,250 mg 0.9% Sodium Chloride 250 ml [Nss] 250 ml IV ONCE
Heparin See Dose Instructions INTRACATH ONCE ONE
01/09/24 08:00
Albumin Human 5% 250 ml [Albumin 5%] 12.5 grams in 250 ml INTRACATH 1,666.667 mls/hr
Calcium Gluconate [Calcium Gluconate 10% Injection] 3,250 mg 0.9% Sodium Chloride 250 ml [Nss] 250 ml IV ONCE
Heparin See Dose Instructions INTRACATH ONCE ONE
[2024-01-03] MEDS: LOVENOX 40 MG SC (18:10)
[2024-01-03 21:10] LABS: Babesia microti IgG < 1:16 (< 1:16); Babesia microti IgM <1:20 (<1:20)
[2024-01-04] VITALS (10 sets, daily range): BP systolic 109–148; BP diastolic 59–95; PULSE 98
--- NOTE | 2024-01-04 02:13 | PTCARENOTE ---
[facility] center called, given update on patient. hoping to get insurance authorization later today.
[2024-01-04 04:59] LABS: % Basophils 0.6 % (0-2); % Eosinophils 2.1 % (0-6); % Lymphocytes 15.7 % (20.5-51.1); % Monocytes 7.5 % (1.7-9.3); % Neutrophils 68.1 % (42.2-75.2); Absolute Basophils 0.1 10^3/uL (0-0.2); Absolute Eosinophils 0.2 10^3/uL (0-0.7); Absolute Immature Granulocytes 0.7 10^3/uL (0-0.05); Absolute Lymphocytes 1.8 10^3/uL (1.2-3.4); Absolute Monocytes 0.9 10^3/uL (0.1-0.6); Absolute Neutrophils 7.9 10^3/uL (1.4-6.5); Hematocrit 41.3 % (39.0-52.0); Hemoglobin 14.8 g/dL (13.0-18.0); Mean Corp Hgb Conc. 35.8 g/dL (33.0-37.0); Mean Corpuscular Hgb 30.8 pg (27.0-31.0); Mean Platelet Volume 9.4 fL (7.4-10.4); Nucleated Red Blood Cells % 0 % (-); Platelet Count 162 10^3/uL (130-400); Red Cell Dist. Width 12.6 % (11.5-14.5); White Blood Cell Count 11.6 10^3/uL (4.8-10.8)
[2024-01-04 05:09] LABS: APTT 26.6 Sec (23.4-35.0); INR 1.12; PT 14.4 Sec (11.4-14.6)
[2024-01-04 05:10] LABS: Fibrinogen 151 MG/DL (199-459)
[2024-01-04 05:21] LABS: Blood Urea Nitrogen 14 mg/dl (9-20); Calcium 8.7 mg/dl (8.4-10.2); Carbon Dioxide 27 mmol/L (22-30); Chloride 103 mmol/L (98-107); Estimated Creatinine Clearance > 125 ml/min; Glucose 108 mg/dl (70-99); Magnesium 2.2 mg/dl (1.6-2.3); Sodium 135 mmol/L (135-145); eGFR > 60.00
[2024-01-04 06:41] LABS: Ehrlichia chaffeensis IgM Ab < 1:16 (< 1:16)
--- NOTE | 2024-01-04 08:15 | W.PN.HOSP.TC ---
Today's Communication/Plan
-
see A/P
Assessment / Plan
Assessment / Plan
HPI: 33-year-old male with history of psoriasis on Tremfya biologic every 8 weeks (the last time was 3 weeks ago), presented to the hospital complaining of 1 week history of diffuse numbness mostly in the extremities.
Symptoms started in both feet and ascend proximally gradually without any weakness. Also no vision change, chest pain/shortness of breath or any seizure-like activity or syncope.
Overall feels tired and fatigued and progressively getting worse with exertional shortness of breath. Denies any trauma or accident or any head injury. Admits he feels cold with no fever or chills.
No sick contacts or recent travel.
Admit smokes occasionally and uses marijuana occasionally.
Workup in the ER basically showed no acute abnormality, with a CT brain concerning for questionable old subacute lacunar infarct.
A/P:
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
Received methylprednisolone for 5 doses with the last day being December 31, 2023
lumbar puncture results noted
Lyme serology negative and CSF PCR negative
Infectious Disease consulted, appreciate their evaluation and recommendations. No antibiotics needed at this time.
TSH WNL at 0.69
Neurology on board
Patient received plasmapheresis via central line- started on January 01, 2024, next treatment January 03, 2024, tentative plan is to continue every other day for 5 treatments
Hematology also consulted given that patient is getting plasmapheresis
Checked daily coags PT/INR, aPTT, fibrinogen, and daily CBC
Continue Vitamin B12 given marginally lower (but within normal limits) Vitamin B12
On December 30, 2023, Dr. Antonio spoke with neurologists Dr. Byrd and Dr. Pastor at [facility], and discussed patient's case with them, they accepted patient as an elective transfer to [facility]. Case
management working on insurance authorization, awaiting determination.
# psoriasis
Pt on Tremfya or Guselkumab
# Smoking cigarette and marijuana occasionally
UDS negative
Diet: Patient can continue regular diet with thin liquids per speech evaluation
DVT prophylaxis SCDs and Lovenox
total time spent 51 min
Anticipated Discharge: > 48 hours
Subjective/Interval History
-
Date of Service: January 04, 2024
Objective Data
-
Labs:
Laboratory Results
01/04/24
04:51
WBC 11.6 H
Hgb 14.8
Hct 41.3
Plt Count 162
PT 14.4
INR 1.12
APTT 26.6
Sodium 135
Potassium 4.0
Chloride 103
Carbon Dioxide 27
BUN 14
Creatinine 0.6 L
Glucose 108 H
Calcium 8.7
Vital Signs:
Vital Signs
Temp Pulse Resp BP Pulse Ox
36.7 C 78 17 132/89 95
01/04/24 03:41 01/04/24 06:03 01/04/24 06:03 01/04/24 06:03 01/03/24 20:21
I&O
01/03/24 01/04/24 01/05/24
06:59 06:59 06:59
Intake Total 240 / 240
Balance 240 / 240
Review of Systems
-
Neuro: Reports Weakness and Numbness (legs and arms)
Physical Exam
-
General: Well Developed, Well Nourished, No Apparent Distress, Comfortable and Conversant; Negative Respiratory Distress
HEENT: Normocephalic, Atraumatic, Nose Appears Normal and Ears Appear Normal; Negative Oxygen
Respiratory: Clear to Auscultation and Non Labored Respirations; Negative Accessory Resp Muscle Use
Cardiac: Regular Rhythm and S1/S2
GI: Soft, Nontender, Nondistended and Normal Bowel Sounds
Skin: Warm and Dry
Neuro: Awake, Alert and Oriented
Psych: Calm and Intact Judgement/Insight
Data Reviewed
-
CT Scan: Report Reviewed by me
MRI: Report Reviewed by me
Labs: Labs Reviewed by me
[2024-01-04] MEDS: PEPCID 20 MG PO ×2 (08:29→19:50)
[2024-01-04] MEDS: VITAMIN B-12 1000 MCG PO (08:29)
--- NOTE | 2024-01-04 09:56 | W.PN.ONC2 ---
Today's Communication / Plan
-
cont pheresis as recommended by neurology - every other day x5
fibrinogen adequate
follow daily PT/INR, aPTT, and fibrinogen as well as CBC
Impression
Impression
demyelinating neurologic process
Plan
Plan
1. Demyelinating neurologic process
-hematology has been consulted to assist w/ facilitating plasmapheresis as per Dr. Crawford, neurology, recommendations
-tolerating pheresis w/o significant issues - 2nd treatment today - w/ 5 planned every other day
-fibrinogen 209 today
-as per [facility] - replacement fluid should consist of 3.25L 5% albumin - along w/ 3.25g calcium gluconate w/ each treatment
-check daily coags - PT/INR, aPTT and fibrinogen - daily CBC
will continue to follow with you.
Subjective/Objective
Chief Complaint
no new complaints
Subjective
platelets 162,000, fibrinogen 151, normal PT/INR/PTT
deneis bleeding
Vital Signs:
Vital Signs
Temp Pulse Resp BP Pulse Ox
98.1 F 78 17 132/89 95
01/04/24 07:41 01/04/24 06:03 01/04/24 06:03 01/04/24 06:03 01/03/24 20:21
Lab Results:
Laboratory Data
WBC 11.6 10^3/uL (4.8-10.8) H 01/04/24 04:51
Hgb 14.8 g/dL (13.0-18.0) 01/04/24 04:51
Plt Count 162 10^3/uL (130-400) 01/04/24 04:51
PT 14.4 Sec (11.4-14.6) 01/04/24 04:51
INR 1.12 01/04/24 04:51
APTT 26.6 Sec (23.4-35.0) 01/04/24 04:51
eGFR > 60.00 01/04/24 04:51
Physical Exam
HEENT: Moist Mucous Membranes; No Jaundice
Cardiology: Normal Sinus Rhythm
Pulmonary: Clear
GI: Soft
Extremities: No Edema
Neuro: Other (A&O3, speech clear)
Review of Systems
Review of Systems
review of systems notable for subjective, otherwise negative
--- NOTE | 2024-01-04 10:40 | CM ---
VM received from Luz at [facility]([phone]), requesting pt/ot notes for pending acute rehab transfer. Call placed to Luz, made Luz aware the auth is for an acute to acute transfer , not acute to Acute Rehab, Apparently auth was incorrectly
data entered on their end as a acute rehab auth. I explained that Enrique was requesting the precert prior to accepting the patient. She stated she will forward it to their Counterintelligence Analyst and will expedite getting a determination. Provided my direct
number for call back.l
--- NOTE | 2024-01-04 10:48 | PTCARENOTE ---
Pt received from community health nurse staff RN. Pt is Ox3 and appropriate, speech is clear, equal strength in arms and legs. Complains of a diffuse decrease in sensation throughout his body. NSR on tele. 95% on RA, breath sounds clear throughout. Does not complain
of any difficulty with urinating or BM's. He states he has some difficulty swallowing solid food, it often takes him multiple sips of water with each bite to successfully swallow. Call gregory within reach. Pt makes needs known.
--- NOTE | 2024-01-04 13:43 | W.PN.NEURO.1 ---
Today's Communication / Plan
-
33-year-old male history of new onset gait ataxia dysarthria and generalized numbness with MRI findings of extensive demyelination who has completed IV Solu-Medrol 1000 mg for 5 days and is currently on plasmapheresis
Starting prednisone 60 mg daily with gradual taper over 4 to 6 weeks
Tolerating pheresis w/o significant issues - 08/03 treatment yesterday - total of 5 planned every other day
-fibrinogen 209 today
per [facility] - replacement fluid should consist of 3.25L 5% albumin - along w/ 3.25g calcium gluconate w/ each treatment
Patient awaiting transfer to inpatient neurology @ [facility]
Neuro Assessment/Plan
Assessment
IMPRESSIONS/RECOMMENDATIONS:
33-year-old male with history of psoriasis and Marijuana use with new onset generalized numbness, unsteadiness, and speech changes with demyelination on MRI. Preceded by upper respiratory tract illness approximately 2 weeks prior to development of
neurological symptoms. 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
Completed methylprednisolone for 5 doses, and currently on plasmapheresis
Plan
Appreciate consult from Hematology due to need for plasma exchange 5 treatments, 5 L; patient receiving 2nd PLEX today
Continue rehabilitation
Will continue to follow patient.
Subjective/Objective
Subjective Data
Date of Service: January 04, 2024
Patient is doing well and has no new complaints. He does have persistent numbness in his neck torso upper and lower extremities. He also has some difficulty swallowing but is able to swallow liquids and foods with soft consistency without any
issues. No difficulty with bowel or bladder
Objective Data
Vital Signs
Temp Pulse Resp BP Pulse Ox
36.6 C 114 15 114/59 94
01/04/24 11:15 01/04/24 12:02 01/04/24 12:02 01/04/24 10:00 01/04/24 11:17
Lab Results
01/04/24 04:51
01/04/24 04:51
PT 14.4 Sec (11.4-14.6) 01/04/24 04:51
INR 1.12 01/04/24 04:51
APTT 26.6 Sec (23.4-35.0) 01/04/24 04:51
Sodium 135 mmol/L (135-145) 01/04/24 04:51
Potassium 4.0 mmol/L (3.5-5.1) 01/04/24 04:51
BUN 14 mg/dl (9-20) 01/04/24 04:51
Glucose 108 mg/dl (70-99) H 01/04/24 04:51
Calcium 8.7 mg/dl (8.4-10.2) 01/04/24 04:51
Vitamin B12 412 pg/ml (239-931) 12/27/23 07:07
Ur Buprenorphine Negative (Negative) 12/26/23 21:47
Patient Allergies
No Known Allergies Allergy (Verified 12/26/23 16:25)
Review of Systems
-
History Source: Patient
All other systems: Reviewed and negative
Constitutional: No Symptoms
EENT: No Symptoms Reported
Respiratory: No Symptoms
Cardiac: No Symptoms
Abdomen/GI: No Symptoms
Genitourinary: No Symptoms
Musculoskeletal: No Symptoms
Skin: No Symptoms
Neuro: Numbness
Endocrine: No Symptoms
Hematologic / Lymphatic: No Symptoms
Allergy / Immunology: No Symptoms
Physical Exam
-
General: Well Developed, Well Nourished, No Apparent Distress and Comfortable
Eyes: Unremarkable, Round OU, Edwards Conjunctivae, No Ptosis and PERRLA
HEENT: Normocephalic, Atraumatic, Anicteric and Moist Mucous Membranes
Neck: No Bruits Bilaterally
Respiratory: Clear to Auscultation
Cardiac: Regular Rhythm and No Murmur
GI: Normal Bowel Sounds
Skin: Unremarkable
Extremities: No Clubbing
Psych: Unremarkable
Extended Neurological Exam
Mood & Affect: Mood Unremarkable and Affect Unremarkable
Attention Span & Concentration: Awake, Alert, Interactive and No Difficulty with 2 Step Request
Memory: Unremarkable
Tremor: Hand Tremor Absent and Head Tremor Absent
Involuntary Movement: None
Speech: Quality Unremarkable, Quantity Unremarkable and Rate of Production Unremarkable
Cranial Nerve II: Left Eye: Pupillary Reactivity Unremarkable, Pupillary Size Unremarkable and Visual Vázquez Grossly Intact
Cranial Nerve II: Right Eye: Pupillary Reactivity Unremarkable, Pupillary Size Unremarkable and Visual Vázquez Intact
Cranial Nerves III, IV, : Extraocular Movement: Extraocular Movement Full in all Directions
Cranial Nerve V: Facial Sensation: Intact to Pin Prick and Intact to Light Touch
Cranial Nerve VII: Facial Symmetry: Normal Facial Symmetry
Cranial Nerve VIII: Hearing: Unremarkable Hearing to Normal Conversational Volume
Cranial Nerves IX, X: Palate Movement: Palate Elevation Symmetric
Cranial Nerve XI: Shoulder Shrug: Unremarkable
Cranial Nerve XII: Tongue Protusion: Midline
Muscle Strength, Overall: Full Throughout
Muscle Bulk & Tone: Bulk Unremarkable
Pronator Drift: No Drift in Upper Extremities and No Drift in Lower Extremities
Deep Tendon Reflexes: 3+
Cold Sensation: Unremarkable
Vibration Sensation: Unremarkable
Touch Sensation: Unremarkable
Coordination: Pxxyar-iyul-cbccdi Testing Unremarkable
Babinski Sign: Absent Bilaterally
Gait & Station: Unremarkable Arm Swing and Up from Seated Without Problem
Modified Crenshaw Score (MRS)
-
Modified Katalina Scale (mRS): No significant disability. Able to carry out usual activities.
Score: 1
Data Reviewed
-
MRI Head: Report Reviewed and Image Reviewed
MRI Cervical Spine: Report Reviewed and Image Reviewed
MRI Thoracic Spine: Report Reviewed and Image Reviewed
--- NOTE | 2024-01-04 14:16 | CM ---
Addendum entered by Lissette King RN 01/04/24 15:28:
Call to Shari at [facility] who confirmed [place] location of [facility] , [address] [place] [address], provided clarification to Acute Care Tranport.
Original Note:
Call received from Nohemi at [facility]([phone]) she stated that the acute to acute transfer is approved , auth [id number]. Per Nohemi it is approved for initial first day then [place] will need to call in daily reviews to her number. She also
stated that no auth required for ambulance when it is acute to acute. She stated if patient does not go today due to no bed to call her to change the date. She also said that if while waiting for available bed at [place] if patient continues to
progress and stable for dc home with outpt follow-up at [place] to let her know.
Call to Shari Venegas at [facility] Precert Department, Made Shari aware that [facility] has approve acute to acute transfer to [place] auth number provided to Shari, along with Nohemi's contact number above and request for daily reviews. Per Shari currently no beds
available. They will call the Drop Wire Operator once bed is available. Update to NICOLÁS, Hospitalist and RN
--- NOTE | 2024-01-04 15:36 | CM ---
Patient with Dx Numbness of bilateral and all extremities - most likely due to an acute demyelinating illness. Receiving plasmapheresis QOD x5.
Per MD notes, patient accepted by Drs. Byrd and Dawit at [facility], as an elective transfer to [facility].
Met with patient and his father; informed them that the patient's insurance had approved transfer to [facility].
Notified that [facility] had called to accept patient today.
Notified by Justo, certified legal secretary specialist, transport time 21:00.
Plan transfer [facility] today by ambulance.
[2024-01-04] MEDS: DELTASONE 60 MG PO (15:57)
--- NOTE | 2024-01-04 16:12 | PTCARENOTE ---
Assumed care of patient at 1500. see nursing assessment. sinus rythym on monitor. bed became available at [facility]. 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 pt and family made aware.
[2024-01-04] MEDS: LOVENOX 40 MG SC (18:20)
--- NOTE | 2024-01-04 19:52 | PTCARENOTE ---
Vital signs captured for the time period of 0960-0487, cannot verify the validity of these vital signs as they were from the previous shift.
--- NOTE | 2024-01-04 20:43 | PTCARENOTE ---
Addendum entered by Roshni Smith RN 01/04/24 20:59:
Report called to RN at [facility], all questions answered.
Original Note:
Assumed care of pt at 1900. Pt is A/O x4, pleasant and cooperative with care. Neurological assessment completed, muscle strength 5/5 in all extremities, pupils 5mm and briskly reactive b/l. Pt reports decreased sensation in all extremities. SR/ST on
monitor, 90s-low 100s. See nursing shift assessment flowsheet for full physical assessment details. Pt to be transferred to [facility] with tentative pickle cutter time of 2100.
--- NOTE | 2024-01-04 21:16 | PTCARENOTE ---
[facility] ambulance company here to cone picker patient to transfer to [facility] at this time.
--- NOTE | 2024-01-05 13:26 | W.DCSUMMARY ---
Discharge Summary
Discharge Data
Date of Admission: 12/28/23
Date of Discharge: 01/04/24
-
Pending Results: No
Hospital Course
Principal Diagnosis:
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
Chronic Diagnoses:�
Psoriasis on Tremfya/Guselkumab
Cigarette smoking
Consultations:�
Neurology
Hematology
Infectious disease
Procedures:�
Lumbar Puncture
Clinical course:�
This is a 33-year-old male with history of psoriasis on Tremfya biologic every 8 weeks, who presented with diffuse numbness of all of his extremities.
Problem 1:
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
The patient received IV methylprednisolone x 5 doses and plasmapheresis every 48 hours with plan for 5 doses during his hospital stay.
He has had extensive workup for his neuropathy.
Infectious cause was ruled out per ID.
He was transferred to [facility] to continue his care there.
As for the rest of his medical problems, they were stable during his hospital stay.
Discharge Plan
-
Patient Disposition: Acute Care Hospital
Condition: Fair
Discharge Orders:
Discharge Patient (As Directed); Ordered 01/04/24
Ordered By: Neal Meyers
Discharge Date and Time
Discharge Date/Time: 01/04/24 21:22
Print Language: MALAY
== END 2024-01-04 21:22 | disposition short-term general hospital (02) | DRG 99 ==
LOC: IMU 12:00
PROVIDERS: Hospitalist; Internal Medicine; Internal Medicine Hematology & Oncology; Physician Assistant; Psychiatry & Neurology Neurology; Radiology Vascular & Interventional Radiology; ADMITTING PHYSICIAN Internal Medicine; ATTENDING PHYSICIAN Internal Medicine; CONSULT PHYSICIAN Internal Medicine Hematology & Oncology; CONSULT PHYSICIAN Internal Medicine Infectious Disease; CONSULT PHYSICIAN Psychiatry & Neurology Neurology; EMERGENCY PHYSICIAN Emergency Medicine
PROC: B01B1ZZ Fluoroscopy of Spinal Cord using Low Osmolar Contrast (ICD-10-PCS; 2023-12-28)
PROC: 009U3ZX Drainage of Spinal Canal, Percutaneous Approach, Diagnostic (ICD-10-PCS; 2023-12-28)
PROC: 02HV33Z Insertion of Infusion Device into Superior Vena Cava, Percutaneous Approach (ICD-10-PCS; 2024-01-01)
PROC: 6A551Z3 Pheresis of Plasma, Multiple (ICD-10-PCS; 2024-01-01)
DX: G04.00 Acute disseminated encephalitis and encephalomyelitis, unspecified (principal); L40.9 Psoriasis, unspecified; F17.210 Nicotine dependence, cigarettes, uncomplicated
CPT/HCPCS: 36556; 62328; 70450; 70551; 71270; 72156; 72157; 74170; 74230; 76937; 77001; 80048; 80053; 80306; 81003; 82040; 82042; 82164; 82306; 82607; 82784; 82945; 82962; 83036; 83735; 83873; 83916; 84157; 84443; 85025; 85027; 85384; 85610; 85652; 85730; 86038; 86255; 86618; 86666; 86753; 86850; 86900; 86901; 87015; 87070; 87205; 87327; 87476; 87483; 88108; 89051; 92507; 92523; 92526; 92610; 92611; 93005; 97110; 97112; 97116; 97163; 97166; 97530; 97535; 99285; A9575; C1752; P9045; Q9967

== ENCOUNTER 2024-01-05 19:58 | Inpatient (IN) | payer OTHER, SELFPAY ==
--- NOTE | 2024-01-05 19:37 | HPS.HSE ---
Family Physician
-
Family Physician: NOT KNOW UNKNOWN - PT DOES
Chief Complaint
-
TF back from [facility]
History of Present Illness
HPI
33M HX psoriasis on Tremfya biologic Q 8 weeks (the last time was 3 weeks ago) was admitted to from 12/27- 01/03 then TF to [facility] for evauation of diffuse numbness mostly in the extremities concerning for acute demyelinating illness/acute
disseminating encephalomyelitis without motor weakness. Other symtoms include
fatigued and progressively worsening of King.Reports above is preceded by upper respiratory tract illness approximately 2 weeks prior to development of neurological symptoms.
While at from 12/28/23 to 01/04/24:
- completed methylprednisolone for 5 doses( 12/26 - 12/30) plus plasmapheresis twice on 12/31 and 01/02
TF to [facility] from on 01/03
Of note 12/29/33: Dr. Antonio/Hospitalist spoke with neurologists Dr. Byrd and Dr. Pastor at [facility], and discussed patient's case with them.They accepted patient as an elective transfer to [facility] on
01/04/24.
TF back from [facility] to on 01/04 - due to no new intervention at [facility]
Medical History
Past Medical History
Past Medical History: Reports Other
Additional Past Medical History:
Past medical history REVIEWED:
Psoriasis
Social history: He works in [employer] he said he has not been exposed to the chemical or herbicide, smokes occasionally as well as smokes marijuana occasionally, socially drinks alcohol. Denies any other drugs.
Family history: Reviewed and noncontributory
Past Surgical History: Reports Other
Social History
Unable to obtain full social history at this time due to: Other
Tobacco: Smoker
Drug: Marijuana
Family History
Family History: Not pertinent and Other
Allergies / Home Medications
Allergies reflects when Allergies were last updated in Hands.
Home Medications with original date entered in Hands
Allergy/Medication List:
Allergies
Allergy/AdvReac Type Severity Reaction Status Date / Time
No Known Allergies Allergy Verified 12/26/23 16:25
Home Medications
guselkumab 100 mg/mL subcutaneous auto-injector (Tremfya) 0 mg SC Q8W 12/26/23
Review of Systems
-
A 12 point ROS was completed and negative except as noted: Yes
Neurological: Reports Numbness (parasthesis of bilateral and all extremities )
Physical Exam
Vital Signs
Vital Signs
Physical Exam
General: Well Developed, Well Nourished, No Apparent Distress, Comfortable, Conversant and Other
HEENT: NormoCephalic, Moist mucous membranes and Atraumatic
Respiratory: Clear
Cardiac: S1/S2 and Regular Rhythm; No Murmur or Rub
GI: Soft, Non Tender, Non Distended and Normal Bowel Sounds; No Organomegaly
Rectal: Other
Musculoskeletal: No Clubbing, No Cyanosis and No Edema
Skin: No Rash
Neuro: AO x 3 and Nonfocal/grossly intact
Psych: Calm, Intact Judgment/Insight and Other
Data Reviewed
-
Medical Tests (Nuc Med, Echo, EKG etc): Report Reviewed by me
Old Records: Reviewed
Impression/Plan
-
Reviewed VS:
Data
12/27/23 Brain MRI Without Contrast
- There are numerous focal regions of abnormal increased diffusion-weighted signal with increased T2 and FLAIR signal, and no restricted diffusion, with increased signal intensity on ADC images.
- Findings are highly suggestive of a demyelinating process.
- Main differential considerations of acute disseminated encephalomyelitis and multiple sclerosis.
- Regions of multiple infarction would not be expected to have this appearance on MRI.
- Neoplastic disease could be considered, but felt to be significantly less likely.
12/27/23 MR Cervical Spine Without & W; MR Thoracic Spine W/o & With
- Normal MRI examination of the cervical and thoracic spine.
- 0.9 cm enhancing T2/STIR hyperintense lesion in the left aspect of the medulla.
- Punctate enhancing foci in the iza. 0.8 cm enhancing lesion in the left parieto-occipital region.
- Findings are most in keeping with active demyelinating disease.
Last hospitalist admission: 12/28/23 - 01/04/24 TF to [facility]
Principal Diagnosis:
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
ASSESSMENT & PLAN
Pending Rx reconciliation
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
- paraesthesia of bilateral and all extremities - improved 25 % s/p steroids and plasmapheresis
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
- s/p methylprednisolone for 5 doses ( last dose on 12/31/23)
- s/p plasmapheresis via central line( 01/01/24 - 01/03/24) tentative plan is to continue every other day for 5 treatments
- CSF was analyzed by ID and unremarkable
- NEG Lyme serology
- TSH WNL at 0.69
- Checked daily coags PT/INR, aPTT, fibrinogen, and daily CBC
- Continue Vitamin B12 given marginally lower (but within normal limits) Vitamin B12
- Neurology consult
- Hematology consult
Psoriasis HX Biologic agent Q8wk
- on Tremfya or Guselkumab
Smoker and marijuana occasionally
- UDS negative on last admission
DVT Px: LMWH
Code: Full code
IP MS
[2024-01-05 20:00] VITALS: BP 141/98
--- NOTE | 2024-01-05 20:00 | PTCARENOTE ---
Pt admitted to floor from [place]. M/s orders. aaox3, self in room. SR on monitor, vss. Remains on RA. Neuro checks completed. Pt still having numbness/tingling in lower extremities & hands. States he is feeling better than he did when he was first
admitted to us. Weakness has subsided, pt can now walk around on his own. R HD cath in place, VAT up to assess. Denies pain. Will monitor.
[2024-01-05 20:23] VITALS: BMI 24.8
--- NOTE | 2024-01-05 21:45 | PTCARENOTE ---
Contacted [facility] about plan for plasmapheresis. We no longer have the machine for it in our hospital. [facility] stated we need a new [facility] request order to complete & start the process. Reached out to ED coverage & GROUND SUPPORT EQUIPMENT FITTER for [facility] order. BAGGING MACHINE OPERATOR reached out to
hematology hearing healthcare practitioner, awaiting answers. R HD in place. Pt updated.
--- NOTE | 2024-01-05 22:53 | W.PN.UPDATE ---
Update Note
Progress Note Update
Reported by the nursing staff that [facility] been contacted for plasmapheresis. [facility] requested new order. Hematology contacted via tiger text, waiting for a contact back.
[2024-01-06] VITALS (12 sets, daily range): BP systolic 120–153; BP diastolic 60–97; PULSE 84; O2SAT 98
[2024-01-06 04:36] LABS: Hematocrit 41.3 % (39.0-52.0); Hemoglobin 14.5 g/dL (13.0-18.0); Mean Corp Hgb Conc. 35.1 g/dL (33.0-37.0); Mean Corpuscular Hgb 31.2 pg (27.0-31.0); Mean Corpuscular Volume 88.8 fL (80.0-94.0); Mean Platelet Volume 9.6 fL (7.4-10.4); Platelet Count 164 10^3/uL (130-400); Red Blood Cell Count 4.65 10^6/uL (4.70-6.10); Red Cell Dist. Width 12.9 % (11.5-14.5); White Blood Cell Count 11.9 10^3/uL (4.8-10.8)
[2024-01-06 05:00] LABS: INR 1.03; PT 13.3 Sec (11.4-14.6)
[2024-01-06 05:24] LABS: Blood Urea Nitrogen 18 mg/dl (9-20); Calcium 9.1 mg/dl (8.4-10.2); Carbon Dioxide 24 mmol/L (22-30); Chloride 103 mmol/L (98-107); Estimated Creatinine Clearance > 125 ml/min; Glucose 94 mg/dl (70-99); Potassium 4.4 mmol/L (3.5-5.1); Sodium 136 mmol/L (135-145); eGFR > 60.00
[2024-01-06 05:41] LABS: Fibrinogen 237 MG/DL (199-459)
--- NOTE | 2024-01-06 07:36 | W.PN.HOSP.TC ---
Today's Communication/Plan
-
see A/P
Assessment / Plan
Assessment / Plan
HPI: 33-year-old male with history of psoriasis on Tremfya biologic every 8 weeks (the last time was 3 weeks ago), presented to the hospital complaining of 1 week history of diffuse numbness mostly in the extremities.
Symptoms started in both feet and ascend proximally gradually without any weakness. Also no vision change, chest pain/shortness of breath or any seizure-like activity or syncope.
Overall feels tired and fatigued and progressively getting worse with exertional shortness of breath. Denies any trauma or accident or any head injury. Admits he feels cold with no fever or chills.
No sick contacts or recent travel.
Admit smokes occasionally and uses marijuana occasionally.
Workup in the ER basically showed no acute abnormality, with a CT brain concerning for questionable old subacute lacunar infarct.
A/P:
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
Received methylprednisolone for 5 doses with the last day being December 31, 2023, cont prednisone 60 mg daily with gradual taper over 4 to 6 weeks per neuro
lumbar puncture results noted
Lyme serology negative and CSF PCR negative
Infectious Disease consulted, appreciate their evaluation and recommendations. No antibiotics needed at this time.
TSH WNL at 0.69
Neurology on board
Patient received plasmapheresis via central line- started on January 01, 2024, then January 03, 2024, with plan to continue every other day for 5 treatments total
Hematology consulted for plasmapheresis
Checked daily coags PT/INR, aPTT, fibrinogen, and CBC
Continue Vitamin B12 given level marginally lower at 400
Pt was transferred to [facility] but sent back due to same management. [facility] neurologist recc to complete plasmapheresis for 5 treatments and dispo after that
# psoriasis
Pt on Tremfya
# Smoking cigarette and marijuana occasionally
UDS negative
Diet: Patient can continue regular diet with thin liquids per speech evaluation
DVT prophylaxis SCDs and Lovenox
Dispo: PT OT eval
Anticipated Discharge: > 48 hours
Subjective/Interval History
-
Date of Service: January 06, 2024
Objective Data
-
Labs:
Laboratory Results
01/06/24
04:11
WBC 11.9 H
Hgb 14.5
Hct 41.3
Plt Count 164
PT 13.3
INR 1.03
APTT 25.0
Sodium 136
Potassium 4.4
Chloride 103
Carbon Dioxide 24
BUN 18
Creatinine 0.7
Glucose 94
Calcium 9.1
Vital Signs:
Vital Signs
Temp Resp BP Pulse Ox
36.7 C 17 141/98 97
01/05/24 22:54 01/05/24 20:04 01/05/24 20:00 01/05/24 23:07
I&O
01/05/24 01/06/24 01/07/24
06:59 06:59 06:59
Intake Total 480 / 480
Balance 480 / 480
Review of Systems
-
All other systems: Reviewed and negative
Physical Exam
-
General: Well Developed, Well Nourished, No Apparent Distress, Comfortable and Conversant; Negative Respiratory Distress
HEENT: Normocephalic, Atraumatic, Nose Appears Normal and Ears Appear Normal; Negative Oxygen
Respiratory: Clear to Auscultation and Non Labored Respirations; Negative Accessory Resp Muscle Use
Cardiac: Regular Rhythm and S1/S2
GI: Soft, Nontender, Nondistended and Normal Bowel Sounds
Skin: Warm and Dry
Neuro: Awake, Alert and Oriented
Psych: Calm and Intact Judgement/Insight
Data Reviewed
-
CT Scan: Report Reviewed by me
MRI: Report Reviewed by me
Labs: Labs Reviewed by me
--- NOTE | 2024-01-06 08:13 | CON.ONC ---
Impression
Impression
1. Demyelinating neurologic process
-hematology has been consulted to assist w/ facilitating plasmapheresis as per Dr. Crawford, neurology, recommendations
-tolerating pheresis w/o significant issues - 3rd treatment planned today - w/ 5 planned every other day discussed with [facility]
-as per [facility] - replacement fluid should consist of 3.25L 5% albumin - along w/ 3.25g calcium gluconate w/ each treatment
-check daily coags - PT/INR, aPTT and fibrinogen - daily CBC
Plan
Plan
cont pheresis as recommended by neurology - every other day x5
fibrinogen adequate
follow daily PT/INR, aPTT, and fibrinogen as well as CBC
Patient History
History of Present Illness
33y/o male seen in hematology consultation, in order to facilitate plasmapheresis for acute neurologic demyelinating process.
Recall that the patient presented to the [facility] ER on 12/25 w/ paresthesias and difficulty ambulating. He underwent comprehensive neurologic w/u including and MRI of the brain revealing findings suggestive of a demyelinating process
w/differential considerations of acute disseminated encephalomyelitis and multiple sclerosis. He was hospitalized at 12/27-01/03 and completed methylprednisolone for 5 doses( 12/26 - 12/30) plus plasmapheresis 12/31 and 01/02. He was then electively
transferred to [facility] for further evaluation, however, upon evaluation no additional interventions recommended so patient transferred back to continue care at .
He is being managed by Dr. Crawford, neurology, who recommended plasmapheresis for this neurologic process. He started 5 treatments, every other day that started 12/31 for which he received 2 and has 3 remaining.
Clinically, he feels that his presenting symptoms are slowly improving.
Past-Medical/Surgical History
PMH PSORIASIS ON TREMFYA
Patient Medication
�Medication �Instructions �Recorded �Confirmed �Last Taken �Type
guselkumab 100 mg/mL subcutaneous 0 mg SC Q8W Psoriasis 06/29/24 06/29/24 3 Weeks Ago History
auto-injector (Tremfya) ~12/05/23
Active Medications
Generic Name Dose Route Start Last Admin
Trade Name Freq PRN Reason Stop Dose Admin
Acetaminophen 650 mg 01/05/24 20:21
Acetaminophen 325 Mg Tablet PO 02/02/24 20:20
Q4HPRN PRN
mild pain/DENNIS/temp> 100.4F
Bisacodyl 10 mg 01/05/24 20:21
Bisacodyl 10 Mg Rectal Suppository RECTAL 02/02/24 20:20
[id number] PRN
constipation
Cyanocobalamin 1,000 mcg 01/06/24 08:00
Cyanocobalamin 1,000 Mcg Tablet PO 02/03/24 07:59
DAILY JULIETA
Enoxaparin Sodium 40 mg 01/06/24 18:00
Enoxaparin Sodium 40 Mg/0.4 Ml Syringe SC 02/03/24 17:59
QPM JULIETA
Polyethylene Glycol 17 grams 01/05/24 20:21
Polyethylene Glycol Powder 17 Grams Packet PO 02/02/24 20:20
DAILYPRN PRN
constipation
Prednisone 60 mg 01/06/24 08:00
Prednisone 10 Mg Tablet PO 02/03/24 07:59
DAILY JULIETA
Senna/Docusate Sodium 1 tablet 01/05/24 20:21
Docusate W/Senna (Paige-Colace) Tablet PO 02/02/24 20:20
BIDPRN PRN
constipation
Sodium Chloride 0 flush 01/05/24 21:00
Sodium Chloride 0.9% (Flush) Syringe IV 02/02/24 20:59
PER PROTOCOL JULIETA
Review of Systems
-
Review of systems notable for HPI, otherwise negative
Physical Exam
-
HEENT: Moist Mucous Membranes; No Jaundice
Cardiology: Normal Sinus Rhythm
Pulmonary: Clear
GI: Soft
Extremities: No Edema
Neuro: Other (A&O3, speech clear)
Labs
Lab Results
WBC 11.9 10^3/uL (4.8-10.8) H 01/06/24 04:11
RBC 4.65 10^6/uL (4.70-6.10) L 01/06/24 04:11
Hgb 14.5 g/dL (13.0-18.0) 01/06/24 04:11
Hct 41.3 % (39.0-52.0) 01/06/24 04:11
MCV 88.8 fL (80.0-94.0) 01/06/24 04:11
MCH 31.2 pg (27.0-31.0) H 01/06/24 04:11
MCHC 35.1 g/dL (33.0-37.0) 01/06/24 04:11
RDW 12.9 % (11.5-14.5) 01/06/24 04:11
Plt Count 164 10^3/uL (130-400) 01/06/24 04:11
MPV 9.6 fL (7.4-10.4) 01/06/24 04:11
Creatinine 0.7 mg/dL (0.7-1.3) 01/06/24 04:11
Vital Signs
Vital Signs
Temp Resp BP Pulse Ox
98.0 F 17 141/98 97
01/05/24 22:54 01/05/24 20:04 01/05/24 20:00 01/05/24 23:07
[2024-01-06] MEDS: DELTASONE 60 MG PO (09:21)
[2024-01-06] MEDS: VITAMIN B-12 1000 MCG PO (09:21)
--- NOTE | 2024-01-06 09:59 | CON.NEURO4 ---
Documented by User: Jennie Wang NP 01/06/24 10:35
Consultation - Neurology 4
-
CONSULTING PHYSICIAN: Robert Torre MD
REFERRING PHYSICIAN: Hospitalists/SUMEET Moore
DICTATED BY: SUMEET Obregon
DATE/TIME OF REQUEST: 01/05/24
DATE/TIME OF CONSULTATION: 01/06/24
Reason for Consultation: Acute disseminated encephalomyelitis (ADEM)
History of Present Illness:
This is a 33-year-old right-handed male with a PMH of psoriasis on Tremfya q8wks who was hospitalized here from 12/26/23-01/04/24 for ADEM. He was transferred to [facility] on 01/04/24 for a second opinion, and then was subsequently transferred back to on
01/05/24 after neurology evaluation/no changes in treatment were recommended.
Patient had reported that in early November 2023 he was bit by a dog on a work site; the was fully vaccinated and he didn't require any treatment. Then one week later in November, he reports having a mild upper respiratory tract illness that improved after
several days. On 12/26/23 he presented to with report of 10 days of ascending numbness and weakness, fatigue, slurred speech, progressive dyspnea, and ambulatory dysfunction. While hospitalized, he developed severe difficulty swallowing. MRI brain
12/27/23 demonstrated numerous diffuse enhancing lesions including lesions in the right thalamus, medulla, iza, and left parieto-occipital region. MRI cervical and thoracic spine were unremarkable. Lumbar puncture CSF result from 12/28/23 was negative
for oligoclonal bands and WBC count was elevated at 21, thus more supportive of a diagnosis of ADEM over multiple sclerosis. NMO and MOGAD send out lab results have come back negative. He completed 5 days of IV methylprednisone and is now on a 6
week oral prednisone taper. Plasmapheresis was initiated on 01/01/24, today (01/06/24) will be treatment 3/.
Patient reports that overall he is improving. He still has a tingling sensation in his left face, arm, and leg. His walking has been steady/no falls. HE is still having difficulty swallowing, needing to chew food more than usual in order to swallow
it. He reports that as the day progresses his speech starts to sound slurred in the evening. He denies any bowel/bladder difficulty. He denies any headache, dizziness, vision changes, focal weakness, chest pain, palpitations, and shortness of breath.
Past Medical History: Psoriasis
Surgical History: Denies
Family History: Reviewed and noncontributory.
Social History: Occasional alcohol and marijuana usage, UDS negative on admission.
Allergies: No known allergies.
Home Medications: See below.
Review of Symptoms:
Patient denies any fever, headache, chest pain, shortness of breath, GI or symptoms.
�Per the HPI.�All systems are reviewed negative except above.
Physical Exam:
The patient is afebrile, abdomen is nondistended, breathing is unlabored, skin is warm and dry, no edema.
Neurologic Examination:
The patient is awake, alert and oriented x 3. He is able to follow commands and answer questions appropriately. There is no aphasia or dysarthria. On cranial nerve assessment, pupils are 3 mm bilateral, round and reactive to light and
accommodation. Visual caballero are full. Extraocular movements are intact. Facial sensations are intact and bilaterally symmetrical, there is no facial asymmetry. Hearing is intact bilaterally to normal conversation volume. Tongue palate and uvula are
midline. Sternocleidomastoid strengths are full bilaterally. Motor strengths are 5/5 bilateral upper and lower extremities on medical research [place] scale. There is no drift or involuntary movement noted. Deep tendon reflexes are 2+ bilateral
upper and lower extremities and Babinski is absent bilaterally. Sensations of touch, temperature and vibration are intact and bilaterally symmetrical. Coordination is intact by finger to nose bilaterally.
Lab Results: See below.
Neuro Imaging:
1. MRI brain 12/27/23: There are numerous focal regions of abnormal increased diffusion-weighted signal with increased T2 and FLAIR signal, and no restricted diffusion, with increased signal intensity on ADC images. Findings are highly suggestive of
a demyelinating process. Main differential considerations of acute disseminated encephalomyelitis and multiple sclerosis. Regions of multiple infarction would not be expected to have this appearance on MRI. Neoplastic disease could be considered,
but felt to be significantly less likely.
2. MRI Cervical and Thoracic Spine 12/27/23: Normal MRI examination of the cervical and thoracic spine. 0.9 cm enhancing T2/STIR hyperintense lesion in the left aspect of the medulla. Punctate enhancing foci in the iza. 0.8 cm enhancing lesion in
the left parieto-occipital region. Findings are most in keeping with active demyelinating disease.
3. Lumbar puncture 12/28/23: Negative for oligoclonal bands, WBC 21.
Differentials for the patient's presentation include:
1. Demyelinating disease. 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
2. Test results not supportive of multiple sclerosis.
3. Send out labs negative for NMO and MOGAD.
Patient has the following risk factors for their symptoms: URI, dog bite, Tremfya usage
Recommendations:
-Continue PLEX day 3/5 today (01/06/24).
-Completed 5 day course of IV steroids. Continue 6 week steroid taper; 60mg Prednisone daily this week, decrease to 50mg daily on 01/11/24, etc.
-PT/OT/ST evaluations.
-DVT prophylaxis.
-Patient will need outpatient follow-up with an MS specialist at [facility] as an outpatient.
Discussed patient care with: Dr. Torre, the patient
Vital Signs and Labs
-
Vital Signs and Labs:
Vital Signs
Temp Pulse Resp BP Pulse Ox
98.1 F 89 13 141/98 97
01/06/24 07:20 01/06/24 09:39 01/06/24 09:39 01/05/24 20:00 01/05/24 23:07
Lab Results
01/06/24 04:11
01/06/24 04:11
PT 13.3 Sec (11.4-14.6) 01/06/24 04:11
INR 1.03 01/06/24 04:11
APTT 25.0 Sec (23.4-35.0) 01/06/24 04:11
Sodium 136 mmol/L (135-145) 01/06/24 04:11
Potassium 4.4 mmol/L (3.5-5.1) 01/06/24 04:11
BUN 18 mg/dl (9-20) 01/06/24 04:11
Glucose 94 mg/dl (70-99) 01/06/24 04:11
Calcium 9.1 mg/dl (8.4-10.2) 01/06/24 04:11
Medications
-
Active Medications
Generic Name Dose Route Start Last Admin
Trade Name Freq PRN Reason Stop Dose Admin
Acetaminophen 650 mg 01/05/24 20:21
Acetaminophen 325 Mg Tablet PO 02/02/24 20:20
Q4HPRN PRN
mild pain/DENNIS/temp> 100.4F
Bisacodyl 10 mg 01/05/24 20:21
Bisacodyl 10 Mg Rectal Suppository RECTAL 02/02/24 20:20
[id number] PRN
constipation
Cyanocobalamin 1,000 mcg 01/06/24 08:00 01/06/24 09:21
Cyanocobalamin 1,000 Mcg Tablet PO 02/03/24 07:59 1,000 mcg
DAILY JULIETA Administration
Enoxaparin Sodium 40 mg 01/06/24 18:00
Enoxaparin Sodium 40 Mg/0.4 Ml Syringe SC 02/03/24 17:59
QPM JULIETA
Polyethylene Glycol 17 grams 01/05/24 20:21
Polyethylene Glycol Powder 17 Grams Packet PO 02/02/24 20:20
DAILYPRN PRN
constipation
Prednisone 60 mg 01/06/24 08:00 01/06/24 09:21
Prednisone 10 Mg Tablet PO 02/03/24 07:59 60 mg
DAILY JULIETA Administration
Senna/Docusate Sodium 1 tablet 01/05/24 20:21
Docusate W/Senna (Paige-Colace) Tablet PO 02/02/24 20:20
BIDPRN PRN
constipation
Sodium Chloride 0 flush 01/05/24 21:00
Sodium Chloride 0.9% (Flush) Syringe IV 02/02/24 20:59
PER PROTOCOL JULIETA
Home Medications
�Medication �Instructions �Recorded
guselkumab 100 mg/mL subcutaneous 0 mg SC Q8W Psoriasis 12/26/23
auto-injector (Tremfya)

Documented by User: Robert Torre MD 01/06/24 20:11
Consultation - Neurology 4
-
Total Time Spent with Patient (in minutes): 30
[2024-01-06] MEDS: CALCIUM GLUCONATE 10% INJECTION 282.5 MG IV (13:47)
[2024-01-06] MEDS: HEPARIN 10000 UNITS INTRACATH (13:48)
--- NOTE | 2024-01-06 15:12 | PTCARENOTE ---
Pt presents as assessed. Aox3. Reports feeling slightly improved. Shai Carnes RN at bedside for plasmapharesis. Care as documented. Call gregory within reach.
--- NOTE | 2024-01-06 15:24 | PTOTSP ---
Dysphagia Evaluation
Patient with a history of mild pharyngeal dysphagia on video swallow study 12/30/2023. Suspect current swallowing function is unchanged.
Dysphonia persists (see patient care note). Consider ENT consult if this does not resolve after medical treatment of ADEM.
Recommend:
1. Regular (pick soft/moist foods), Thin Liquids
2. Medications - as best tolerated
3. Strategies: upright to 90 degrees, moisten/soften foods, chew well, small sips/bites, slow rate, alternate sips/bites, remain upright for at least 60 minutes after PO intake
4. Brief dysphagia therapy follow up. ENT consult and outpatient voice therapy if dysphonia does not persist after medical treatment.
[2024-01-06] MEDS: LOVENOX 40 MG SC (17:53)
[2024-01-06] MEDS: SENOKOT-S 1 TABLET PO (20:41)
[2024-01-07] VITALS (7 sets, daily range): BP systolic 113–148; BP diastolic 71–101; BMI 24.5
--- NOTE | 2024-01-07 00:51 | PTCARENOTE ---
Caring for pt overnight. no assessment changes. continues to have slight numbness/tingling in upper and lower extremities. no more weakness. self in room. states he still has trouble swallowing at times but drinking throughout meals helps. vss, NSR.
denies pain. HD cath in place. will monitor.
[2024-01-07 06:24] LABS: % Basophils 0.3 % (0-2); % Eosinophils 0.5 % (0-6); % Immature Granulocytes 2.8 % (0-0.5); % Lymphocytes 13.4 % (20.5-51.1); % Monocytes 7.2 % (1.7-9.3); % Neutrophils 75.8 % (42.2-75.2); Absolute Basophils 0.1 10^3/uL (0-0.2); Absolute Eosinophils 0.1 10^3/uL (0-0.7); Absolute Immature Granulocytes 0.5 10^3/uL (0-0.05); Absolute Lymphocytes 2.2 10^3/uL (1.2-3.4); Absolute Monocytes 1.2 10^3/uL (0.1-0.6); Absolute Neutrophils 12.6 10^3/uL (1.4-6.5); Hemoglobin 14.1 g/dL (13.0-18.0); Mean Corp Hgb Conc. 35.3 g/dL (33.0-37.0); Mean Corpuscular Hgb 31.2 pg (27.0-31.0); Mean Corpuscular Volume 88.5 fL (80.0-94.0); Mean Platelet Volume 9.9 fL (7.4-10.4); Nucleated Red Blood Cells % 0 % (-); Platelet Count 177 10^3/uL (130-400); Red Blood Cell Count 4.52 10^6/uL (4.70-6.10); Red Cell Dist. Width 12.8 % (11.5-14.5); White Blood Cell Count 16.7 10^3/uL (4.8-10.8)
[2024-01-07 06:31] LABS: INR 1.16; PT 14.8 Sec (11.4-14.6)
[2024-01-07 06:44] LABS: Fibrinogen 111 MG/DL (199-459)
[2024-01-07 06:53] LABS: Magnesium 2.1 mg/dl (1.6-2.3)
--- NOTE | 2024-01-07 07:48 | W.PN.HOSP.TC ---
Today's Communication/Plan
-
see A/P
Assessment / Plan
Assessment / Plan
HPI: 33-year-old male with history of psoriasis on Tremfya biologic every 8 weeks (the last time was 3 weeks ago), presented to the hospital complaining of 1 week history of diffuse numbness mostly in the extremities.
Symptoms started in both feet and ascend proximally gradually without any weakness. Also no vision change, chest pain/shortness of breath or any seizure-like activity or syncope.
Overall feels tired and fatigued and progressively getting worse with exertional shortness of breath. Denies any trauma or accident or any head injury. Admits he feels cold with no fever or chills.
No sick contacts or recent travel.
Admit smokes occasionally and uses marijuana occasionally.
Workup in the ER basically showed no acute abnormality, with a CT brain concerning for questionable old subacute lacunar infarct.
A/P:
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 Multiple Sclerosis
Received methylprednisolone for 5 doses with the last day being December 31, 2023, cont prednisone 60 mg daily with gradual taper over 4 to 6 weeks per neuro
lumbar puncture results noted
Lyme serology negative and CSF PCR negative
Infectious Disease consulted, appreciate their evaluation and recommendations. No antibiotics needed at this time.
TSH WNL at 0.69
Neurology on board
Patient received plasmapheresis via central line- started on 12/31 (first dose), then 01/02 (second dose), then 01/05 (third dose), with plan for 2 more doses 48 hours apart
Hematology facilitating plasmapheresis
daily coags PT/INR, aPTT, fibrinogen, and CBC
Continue Vitamin B12 given level marginally lower at 400
Pt was transferred to [facility] but sent back due to same management per [facility]. [facility] neurologist recc to complete plasmapheresis for 5 treatments and dispo after that
# psoriasis
Pt on Tremfya
# Smoking cigarette and marijuana occasionally
UDS negative
Diet: Patient can continue regular diet with thin liquids per speech evaluation
DVT prophylaxis SCDs and Lovenox
Dispo: PT OT eval recc outpt therapy
Anticipated Discharge: > 48 hours
Subjective/Interval History
-
Date of Service: January 07, 2024
Objective Data
-
Labs:
Laboratory Results
01/07/24
05:59
WBC 16.7 H
Hgb 14.1
Hct 40.0
Plt Count 177
PT 14.8 H
INR 1.16
APTT 27.0
Vital Signs:
Vital Signs
Temp Pulse Resp BP Pulse Ox
36.7 C 74 28 128/81 96
01/07/24 06:45 01/07/24 06:00 01/06/24 18:00 01/07/24 06:00 01/07/24 00:30
I&O
01/06/24 01/07/24 01/08/24
06:59 06:59 06:59
Intake Total 480 / 480 240 / 240
Balance 480 / 480 240 / 240
Review of Systems
-
All other systems: Reviewed and negative
Physical Exam
-
General: Well Developed, Well Nourished, No Apparent Distress, Comfortable and Conversant; Negative Respiratory Distress
HEENT: Normocephalic, Atraumatic, Nose Appears Normal and Ears Appear Normal; Negative Oxygen
Respiratory: Clear to Auscultation and Non Labored Respirations; Negative Accessory Resp Muscle Use
Cardiac: Regular Rhythm and S1/S2
GI: Soft, Nontender, Nondistended and Normal Bowel Sounds
Skin: Warm and Dry
Neuro: Awake, Alert and Oriented
Psych: Calm and Intact Judgement/Insight
Data Reviewed
-
CT Scan: Report Reviewed by me
MRI: Report Reviewed by me
Labs: Labs Reviewed by me
--- NOTE | 2024-01-07 09:23 | CM ---
Patient transferred back from [facility] with Dx Numbness of bilateral and all extremities - most likely due to an acute demyelinating illness. Room air. Receiving plasmapheresis QOD x5. PT & OT 01/05 recommend
Outpatient Therapy.
Met with patient yesterday.
Initial Assessment Unchanged from 12/29/23:
The patient resides with his parents in a 2 story house with 2 MAIN.
The patient has been independent in ADLs and ambulation.
The patient has no DME or prior VN.
PCP - per prior CM notes 12/29/23: none, pt has initial appt scheduled with [facility]/Beatriz Kendrick NP on 01/14
Pharmacy - [facility]
Plan home with script for outpatient PT/OT.
[2024-01-07] MEDS: DELTASONE 60 MG PO (09:26)
[2024-01-07] MEDS: VITAMIN B-12 1000 MCG PO (09:27)
--- NOTE | 2024-01-07 11:11 | W.PN.NEURO.1 ---
Today's Communication / Plan
-
.
Neuro Assessment/Plan
Assessment
33-year-old male with history of psoriasis on Tremfya and occasional marijuana use with new onset generalized numbness, unsteadiness, and speech changes with demyelination on MRI imaging. Preceded by upper respiratory tract illness and a dog bite
approximately 2 weeks prior to development of neurological symptoms. 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
-MRI brain 12/27/23: There are numerous focal regions of abnormal increased diffusion-weighted signal with increased T2 and FLAIR signal, and no restricted diffusion, with increased signal intensity on ADC images. Findings are highly suggestive of a
demyelinating process. Main differential considerations of acute disseminated encephalomyelitis and multiple sclerosis. Regions of multiple infarction would not be expected to have this appearance on MRI. Neoplastic disease could be considered, but
felt to be significantly less likely.
-MRI Cervical and Thoracic Spine 12/27/23: Normal MRI examination of the cervical and thoracic spine. 0.9 cm enhancing T2/STIR hyperintense lesion in the left aspect of the medulla. Punctate enhancing foci in the iza. 0.8 cm enhancing lesion in the
left parieto-occipital region. Findings are most in keeping with active demyelinating disease.
-Lumbar puncture 12/28/23: Negative for oligoclonal bands, WBC 21.
I. Demyelinating disease. 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
II. Test results not supportive of multiple sclerosis.
III. Send out labs negative for NMO and MOGAD.
Plan
-Continue 5 day course of PLEX, 4th treatment will be tomorrow 01/08/24.
-Completed 5 day course of IV steroids.
-Continue gradual steroid taper; 60mg Prednisone daily this week, starting 01/11/24 40mg daily x1 week. 01/18/24 20mg daily x1 week. 01/25/24 10mg daily x1 week, then stop.
-PT/OT/ST evaluations.
-DVT prophylaxis.
-Patient will need outpatient follow-up with an MS specialist at [facility] as an outpatient.
Subjective/Objective
Subjective Data
Date of Service: January 07, 2024
No acute events overnight. Patient reports ongoing tingling in his left arm and difficulty swallowing, his gait has been steady. He denies any headache, dizziness, vision changes, speech difficulty, nausea, weakness, chest pain, palpitations, and
shortness of breath.
Objective Data
Vital Signs
Temp Pulse Resp BP Pulse Ox
98.0 F 112 28 134/92 96
01/07/24 06:45 01/07/24 10:00 01/06/24 18:00 01/07/24 09:34 01/07/24 00:30
Lab Results
01/07/24 05:59
01/06/24 04:11
PT 14.8 Sec (11.4-14.6) H 01/07/24 05:59
INR 1.16 01/07/24 05:59
APTT 27.0 Sec (23.4-35.0) 01/07/24 05:59
Sodium 136 mmol/L (135-145) 01/06/24 04:11
Potassium 4.4 mmol/L (3.5-5.1) 01/06/24 04:11
BUN 18 mg/dl (9-20) 01/06/24 04:11
Glucose 94 mg/dl (70-99) 01/06/24 04:11
Calcium 9.1 mg/dl (8.4-10.2) 01/06/24 04:11
Patient Allergies
No Known Allergies Allergy (Verified 12/26/23 16:25)
Review of Systems
-
History Source: Patient
EENT: Swallowing Difficulty; Negative Blurry Vision or Decreased Vision
Respiratory: Negative Cough or Trouble Breathing
Cardiac: Negative Chest Pain or Palpitations
Abdomen/GI: Negative Nausea
Genitourinary: Negative Difficulty Voiding
Neuro: Numbness; Negative Dizzy, Headache, Weakness, Ataxia, Tremors or Speech Problem
Physical Exam
-
General: Well Developed, Well Nourished and No Apparent Distress
Eyes: No Ptosis and PERRLA
HEENT: Normocephalic and Atraumatic
Neck: Full Range of Motion
Respiratory: No Dyspnea
GI: Non-distended
Extremities: No Clubbing, No Cyanosis and No Edema
Psych: Unremarkable
Extended Neurological Exam
Mood & Affect: Mood Unremarkable and Affect Unremarkable
Attention Span & Concentration: Awake, Alert and Interactive
Memory: Unremarkable (AAOx3) and Able to Recall
Tremor: Hand Tremor Absent and Head Tremor Absent
Speech: Quality Unremarkable, Quantity Unremarkable and Rate of Production Unremarkable
Cranial Nerve II: Left Eye: Pupillary Reactivity Unremarkable, Pupillary Size Unremarkable and Visual Vázquez Intact
Cranial Nerve II: Right Eye: Pupillary Reactivity Unremarkable, Pupillary Size Unremarkable and Visual Vázquez Intact
Cranial Nerves III, IV, : Extraocular Movement: Extraocular Movement Full in all Directions
Cranial Nerve V: Facial Sensation: Intact to Light Touch
Cranial Nerve VII: Facial Symmetry: Normal Facial Symmetry
Cranial Nerve VIII: Hearing: Unremarkable Hearing to Normal Conversational Volume
Cranial Nerves IX, X: Palate Movement: Palate Elevation Symmetric
Cranial Nerve XI: Shoulder Shrug: Unremarkable
Cranial Nerve XII: Tongue Protusion: Midline
Muscle Strength, Overall: Full Throughout
Pronator Drift: No Drift in Upper Extremities and No Drift in Lower Extremities
Touch Sensation: Double Simultaneous Stimulation Unremarkable
Coordination: Dalcsi-ltpt-wmgcyy Testing Unremarkable
Data Reviewed
-
CT Head: Report Reviewed and Image Reviewed
MRI Head: Report Reviewed and Image Reviewed
MRI Cervical Spine: Report Reviewed and Image Reviewed
MRI Thoracic Spine: Report Reviewed and Image Reviewed
Medical Test Reports: Report Reviewed (CSF)
Labs: Report Reviewed
Reviewed with: Physician and Patient
Medications
-
Active Medications
Generic Name Dose Route Start Last Admin
Trade Name Freq PRN Reason Stop Dose Admin
Acetaminophen 650 mg 01/05/24 20:21
Acetaminophen 325 Mg Tablet PO 02/02/24 20:20
Q4HPRN PRN
mild pain/DENNIS/temp> 100.4F
Bisacodyl 10 mg 01/05/24 20:21
Bisacodyl 10 Mg Rectal Suppository RECTAL 02/02/24 20:20
[id number] PRN
constipation
Cyanocobalamin 1,000 mcg 01/06/24 08:00 01/07/24 09:27
Cyanocobalamin 1,000 Mcg Tablet PO 02/03/24 07:59 1,000 mcg
DAILY JULIETA Administration
Enoxaparin Sodium 40 mg 01/06/24 18:00 01/06/24 17:53
Enoxaparin Sodium 40 Mg/0.4 Ml Syringe SC 02/03/24 17:59 40 mg
QPM JULIETA Administration
Heparin Sodium 0 units 01/08/24 11:00
Heparin (1000 Units/Ml) 10,000 Units/10 Ml Vial INTRACATH 01/08/24 11:01
ONCE ONE
Heparin Sodium 0 units 01/10/24 11:00
Heparin (1000 Units/Ml) 10,000 Units/10 Ml Vial INTRACATH 01/10/24 11:01
ONCE ONE
Albumin Human 12.5 grams in 250 mls @ 1,666.667 mls/hr 01/08/24 11:00
Albumin 5% INTRACATH 01/08/24 13:00
.Q9M JULIETA
Calcium Gluconate 3,250 mg/ 282.5 mls @ 0 mls/hr 01/08/24 11:00
Sodium Chloride IV 01/08/24 11:01
ONCE ONE
As Directed
Albumin Human 12.5 grams in 250 mls @ 1,666.667 mls/hr 01/10/24 11:00
Albumin 5% INTRACATH 01/10/24 13:00
.Q9M JULIETA
Calcium Gluconate 3,250 mg/ 282.5 mls @ 0 mls/hr 01/10/24 11:00
Sodium Chloride IV 01/10/24 11:01
ONCE ONE
As Directed
Polyethylene Glycol 17 grams 01/05/24 20:21
Polyethylene Glycol Powder 17 Grams Packet PO 02/02/24 20:20
DAILYPRN PRN
constipation
Prednisone 60 mg 01/06/24 08:00 01/07/24 09:26
Prednisone 10 Mg Tablet PO 02/03/24 07:59 60 mg
DAILY JULIETA Administration
Senna/Docusate Sodium 1 tablet 01/05/24 20:21 01/06/24 20:41
Docusate W/Senna (Paige-Colace) Tablet PO 02/02/24 20:20 1 tablet
BIDPRN PRN Administration
constipation
Sodium Chloride 0 flush 01/05/24 21:00
Sodium Chloride 0.9% (Flush) Syringe IV 02/02/24 20:59
PER PROTOCOL JULIETA
Home Medications
�Medication �Instructions �Recorded
guselkumab 100 mg/mL subcutaneous 0 mg SC Q8W Psoriasis 12/26/23
auto-injector (Tremfya)
--- NOTE | 2024-01-07 12:35 | W.PN.ONC2 ---
Today's Communication / Plan
-
continue pheresis as recommended by neurology
monitor coags
Impression
Impression
1. Demyelinating neurologic process
-hematology has been consulted to assist w/ facilitating plasmapheresis as per Dr. Crawford, neurology, recommendations
-tolerating pheresis w/o significant issues - s/p 3rd treatment w/ 5 planned every other day discussed with [facility]
-as per [facility] - replacement fluid should consist of 3.25L 5% albumin - along w/ 3.25g calcium gluconate w/ each treatment
-check daily coags - PT/INR, aPTT and fibrinogen - daily CBC
Plan
Plan
cont pheresis as recommended by neurology - every other day x5
fibrinogen adequate
follow daily PT/INR, aPTT, and fibrinogen as well as CBC
Subjective/Objective
Chief Complaint
no new complaints
Subjective
no new complaints
Vital Signs:
Vital Signs
Temp Pulse Resp BP Pulse Ox
97.9 F 101 28 134/92 96
01/07/24 11:27 01/07/24 12:00 01/06/24 18:00 01/07/24 09:34 01/07/24 00:30
Lab Results:
Laboratory Data
WBC 16.7 10^3/uL (4.8-10.8) H 01/07/24 05:59
Hgb 14.1 g/dL (13.0-18.0) 01/07/24 05:59
Plt Count 177 10^3/uL (130-400) 01/07/24 05:59
PT 14.8 Sec (11.4-14.6) H 01/07/24 05:59
INR 1.16 01/07/24 05:59
APTT 27.0 Sec (23.4-35.0) 01/07/24 05:59
eGFR > 60.00 01/06/24 04:11
Physical Exam
HEENT: Moist Mucous Membranes; No Jaundice
Cardiology: Normal Sinus Rhythm
Pulmonary: Clear
GI: Soft
Extremities: No Edema
Neuro: Other (A&O3, speech clear)
Review of Systems
Review of Systems
notable for subjective, otherwise negative
Orders
Orders
Orders From Last 24 Hours
01/07/24 05:59
Magnesium IN AM
01/08/24 11:00
Albumin Human 5% 250 ml [Albumin 5%] 12.5 grams in 250 ml INTRACATH 1,666.667 mls/hr
Calcium Gluconate [Calcium Gluconate 10% Injection] 3,250 mg 0.9% Sodium Chloride 250 ml [Nss] 250 ml IV ONCE
Heparin See Dose Instructions INTRACATH ONCE ONE
01/10/24 11:00
Albumin Human 5% 250 ml [Albumin 5%] 12.5 grams in 250 ml INTRACATH 1,666.667 mls/hr
Calcium Gluconate [Calcium Gluconate 10% Injection] 3,250 mg 0.9% Sodium Chloride 250 ml [Nss] 250 ml IV ONCE
Heparin See Dose Instructions INTRACATH ONCE ONE
[2024-01-07] MEDS: LOVENOX 40 MG SC (18:39)
[2024-01-08] VITALS (17 sets, daily range): BP systolic 114–142; BP diastolic 72–90; BMI 24.5
[2024-01-08 05:54] LABS: % Basophils 0.2 % (0-2); % Eosinophils 0.3 % (0-6); % Immature Granulocytes 2.2 % (0-0.5); % Lymphocytes 15.1 % (20.5-51.1); % Monocytes 6.1 % (1.7-9.3); % Neutrophils 76.1 % (42.2-75.2); Absolute Eosinophils 0.1 10^3/uL (0-0.7); Absolute Immature Granulocytes 0.4 10^3/uL (0-0.05); Absolute Lymphocytes 2.5 10^3/uL (1.2-3.4); Absolute Neutrophils 12.4 10^3/uL (1.4-6.5); Hematocrit 37.6 % (39.0-52.0); Mean Corp Hgb Conc. 34.6 g/dL (33.0-37.0); Mean Corpuscular Hgb 30.6 pg (27.0-31.0); Mean Corpuscular Volume 88.5 fL (80.0-94.0); Mean Platelet Volume 9.5 fL (7.4-10.4); Nucleated Red Blood Cells % 0 % (-); Platelet Count 177 10^3/uL (130-400); Red Blood Cell Count 4.25 10^6/uL (4.70-6.10); Red Cell Dist. Width 13.2 % (11.5-14.5); White Blood Cell Count 16.3 10^3/uL (4.8-10.8)
[2024-01-08 06:04] LABS: INR 1.09; PT 14.1 Sec (11.4-14.6)
[2024-01-08 06:05] LABS: APTT 25.5 Sec (23.4-35.0)
[2024-01-08 06:10] LABS: Fibrinogen 140 MG/DL (199-459)
--- NOTE | 2024-01-08 07:12 | PTCARENOTE ---
NO acute events overnight. Plan for plasmapharesis at 930. GF at bedside.
--- NOTE | 2024-01-08 08:03 | W.PN.HOSP.TC ---
Today's Communication/Plan
-
see A/P
Assessment / Plan
Assessment / Plan
HPI: 33-year-old male with history of psoriasis on Tremfya biologic every 8 weeks (the last time was 3 weeks ago), presented to the hospital complaining of 1 week history of diffuse numbness mostly in the extremities.
Symptoms started in both feet and ascend proximally gradually without any weakness. Also no vision change, chest pain/shortness of breath or any seizure-like activity or syncope.
Overall feels tired and fatigued and progressively getting worse with exertional shortness of breath. Denies any trauma or accident or any head injury. Admits he feels cold with no fever or chills.
No sick contacts or recent travel.
Admit smokes occasionally and uses marijuana occasionally.
Workup in the ER basically showed no acute abnormality, with a CT brain concerning for questionable old subacute lacunar infarct.
A/P:
# Numbness of bilateral and all extremities - most likely due to an acute demyelinating illness with history of mild URI 2 weeks [facility] DATA ARCHITECT - acute disseminating encephalomyelitis vs. Multiple Sclerosis
Received methylprednisolone for 5 doses with the last day being December 31, 2023, cont prednisone 60 mg daily with gradual taper over 4 to 6 weeks per neuro
lumbar puncture results noted
Lyme serology negative and CSF PCR negative
Infectious Disease consulted, appreciate their evaluation and recommendations. No antibiotics needed at this time.
TSH WNL at 0.69
Neurology on board
Patient received plasmapheresis via central line- started on 12/31 (first dose), then 01/02 (second dose), then 01/05 (third dose), and 01/07 (fourth dose), with plan for 1 more doses 48 hours later
Hematology facilitating plasmapheresis
daily coags PT/INR, aPTT, fibrinogen, and CBC
Cont Prednisone: 60 mg x1 week, starting 01/11/24 40mg daily x1 week, 01/18/24 20mg daily x1 week, 01/25/24 10mg daily x1 week, then stop.
Continue Vitamin B12 given level marginally lower at 400
Pt was transferred to [facility] but sent back due to same management per [facility]. [facility] neurologist recc to complete plasmapheresis for 5 treatments and dispo after that
# Occasional hiccup
Compazine ordered per pt request
# psoriasis
Pt on Tremfya
# Smoking cigarette and marijuana occasionally
UDS negative
Diet: Patient can continue regular diet with thin liquids per speech evaluation
DVT prophylaxis SCDs and Lovenox
Dispo: PT OT eval recc outpt therapy
DW family at bedside
Anticipated Discharge: 24 - 48 hours
Subjective/Interval History
-
Date of Service: January 08, 2024
Objective Data
-
Labs:
Laboratory Results
01/08/24
05:45
WBC 16.3 H
Hgb 13.0
Hct 37.6 L
Plt Count 177
PT 14.1
INR 1.09
APTT 25.5
Vital Signs:
Vital Signs
Temp Pulse Resp BP Pulse Ox
36.6 C 66 28 114/82 96
01/08/24 05:49 01/08/24 06:00 01/06/24 18:00 01/08/24 06:00 01/07/24 20:00
I&O
01/07/24 01/08/24 01/09/24
06:59 06:59 06:59
Intake Total 240 / 240 1200 / 1200
Balance 240 / 240 1200 / 1200
Review of Systems
-
All other systems: Reviewed and negative
Physical Exam
-
General: Well Developed, Well Nourished, No Apparent Distress, Comfortable and Conversant; Negative Respiratory Distress
HEENT: Normocephalic, Atraumatic, Nose Appears Normal and Ears Appear Normal; Negative Oxygen
Respiratory: Clear to Auscultation and Non Labored Respirations; Negative Accessory Resp Muscle Use
Cardiac: Regular Rhythm and S1/S2
GI: Soft, Nontender, Nondistended and Normal Bowel Sounds
Skin: Warm and Dry
Neuro: Awake, Alert and Oriented
Psych: Calm and Intact Judgement/Insight
Data Reviewed
-
CT Scan: Report Reviewed by me
MRI: Report Reviewed by me
Labs: Labs Reviewed by me
--- NOTE | 2024-01-08 08:43 | W.PN.NEURO.1 ---
Today's Communication / Plan
-
May proceed with PLEX day 4/5
Neuro Assessment/Plan
Assessment
33-year-old male with history of psoriasis on Tremfya and occasional marijuana use who was admitted with new onset generalized numbness, unsteadiness, and speech changes with demyelination on MRI imaging. Preceded by upper respiratory tract illness
and a dog bite approximately 2 weeks prior to development of neurological symptoms. Based on the nature of the lesions, timeframe, and mildly elevated WBC count, negative oligoclonal bands; consistent with acute demyelinating encephalomyelitis..
Plan
-Continue PLEX, day 4/5 treatment..
-Continue gradual steroid taper; 60mg Prednisone daily this week, starting 01/11/24 40mg daily x1 week. 01/18/24 20mg daily x1 week. 01/25/24 10mg daily x1 week, then stop.
-PT/OT/ST evaluations.
-DVT prophylaxis.
-Patient will need outpatient follow-up with an MS specialist at [facility] as an outpatient.
Subjective/Objective
Subjective Data
Date of Service: January 08, 2024
Patient feels stronger. Numbness has decreased, and experiences randomly over his torso and his upper extremities. it does not disturb his sleep. He is due for his fourth course of plasma exchange today.
Objective Data
Vital Signs
Temp Pulse Resp BP Pulse Ox
36.6 C 66 28 114/82 96
01/08/24 05:49 01/08/24 06:00 01/06/24 18:00 01/08/24 06:00 01/07/24 20:00
Lab Results
01/08/24 05:45
01/06/24 04:11
PT 14.1 Sec (11.4-14.6) 01/08/24 05:45
INR 1.09 01/08/24 05:45
APTT 25.5 Sec (23.4-35.0) 01/08/24 05:45
Sodium 136 mmol/L (135-145) 01/06/24 04:11
Potassium 4.4 mmol/L (3.5-5.1) 01/06/24 04:11
BUN 18 mg/dl (9-20) 01/06/24 04:11
Glucose 94 mg/dl (70-99) 01/06/24 04:11
Calcium 9.1 mg/dl (8.4-10.2) 01/06/24 04:11
Patient Allergies
No Known Allergies Allergy (Verified 12/26/23 16:25)
Review of Systems
-
History Source: Patient
All other systems: Reviewed and negative
Constitutional: Fatigue
EENT: No Symptoms Reported
Respiratory: No Symptoms
Cardiac: No Symptoms
Abdomen/GI: No Symptoms
Genitourinary: No Symptoms
Musculoskeletal: No Symptoms
Skin: No Symptoms
Neuro: Numbness
Endocrine: No Symptoms
Hematologic / Lymphatic: No Symptoms
Allergy / Immunology: No Symptoms
Physical Exam
-
General: Well Developed, Well Nourished, No Apparent Distress and Comfortable
HEENT: Normocephalic
Neck: No Bruits Bilaterally
Respiratory: Clear to Auscultation
Cardiac: Regular Rhythm
GI: Normal Bowel Sounds
Skin: Unremarkable
Extremities: No Clubbing
Psych: Anxious
Extended Neurological Exam
Mood & Affect: Anxious
Attention Span & Concentration: Awake, Alert, Interactive and No Difficulty with 2 Step Request
Memory: Unremarkable, Able to Recall and Recalls Objects
Tremor: Hand Tremor Absent and Head Tremor Absent
Involuntary Movement: None
Speech: Quality Unremarkable, Quantity Unremarkable and Rate of Production Unremarkable
Cranial Nerve II: Left Eye: Pupillary Reactivity Unremarkable, Pupillary Size Unremarkable and Visual Vázquez Grossly Intact
Cranial Nerve II: Right Eye: Pupillary Reactivity Unremarkable, Pupillary Size Unremarkable and Visual Vázquez Grossly Intact
Cranial Nerves III, IV, : Extraocular Movement: Extraocular Movement Full in all Directions
Cranial Nerve V: Facial Sensation: Intact to Pin Prick and Intact to Light Touch
Cranial Nerve VII: Facial Symmetry: Normal Facial Symmetry
Cranial Nerve VIII: Hearing: Unremarkable Hearing to Normal Conversational Volume
Cranial Nerves IX, X: Palate Movement: Palate Elevation Symmetric
Cranial Nerve XI: Shoulder Shrug: Unremarkable
Cranial Nerve XII: Tongue Protusion: Midline
Muscle Strength, Overall: Full Throughout
Muscle Bulk & Tone: Bulk Unremarkable
Pronator Drift: No Drift in Upper Extremities and No Drift in Lower Extremities
Deep Tendon Reflexes: Unremarkable Throughout
Cold Sensation: Unremarkable
Vibration Sensation: Unremarkable
Touch Sensation: Unremarkable
Coordination: Prkwpr-dasl-esashg Testing Unremarkable and Reaches for Objects without Difficulty
Babinski Sign: Absent Bilaterally
Gait & Station: Up from Seated Without Problem and Up from Lying with Difficulty
Modified [place] Score (MRS)
-
Modified [place] Scale (mRS): No significant disability. Able to carry out usual activities.
Score: 1
[2024-01-08] MEDS: VITAMIN B-12 1000 MCG PO (08:59)
[2024-01-08] MEDS: DELTASONE 60 MG PO (08:59)
--- NOTE | 2024-01-08 10:45 | W.PN.ONC2 ---
Today's Communication / Plan
-
proceed with 4th dose of pheresis/albumin per [facility] with fibrinogen >100
Impression
Impression
1. Demyelinating neurologic process
-hematology has been consulted to assist w/ facilitating plasmapheresis as per Dr. Crawford, neurology, recommendations
-tolerating pheresis w/o significant issues - s/p 3rd treatment w/ 5 planned every other day discussed with [facility]
-as per [facility] - replacement fluid should consist of 3.25L 5% albumin - along w/ 3.25g calcium gluconate w/ each treatment
-check daily coags - PT/INR, aPTT and fibrinogen - daily CBC
Plan
Plan
cont pheresis as recommended by neurology - every other day x5
fibrinogen <150, denies bleeding
follow daily PT/INR, aPTT, and fibrinogen as well as CBC
Subjective/Objective
Chief Complaint
no new complaints
Subjective
fibrinogen 140, denies overt bleeding
Vital Signs:
Vital Signs
Temp Pulse Resp BP Pulse Ox
97.8 F 85 28 130/88 96
01/08/24 05:49 01/08/24 08:00 01/06/24 18:00 01/08/24 08:00 01/07/24 20:00
Lab Results:
Laboratory Data
WBC 16.3 10^3/uL (4.8-10.8) H 01/08/24 05:45
Hgb 13.0 g/dL (13.0-18.0) 01/08/24 05:45
Plt Count 177 10^3/uL (130-400) 01/08/24 05:45
PT 14.1 Sec (11.4-14.6) 01/08/24 05:45
INR 1.09 01/08/24 05:45
APTT 25.5 Sec (23.4-35.0) 01/08/24 05:45
eGFR > 60.00 01/06/24 04:11
Physical Exam
HEENT: Moist Mucous Membranes; No Jaundice
Cardiology: Normal Sinus Rhythm
Pulmonary: Clear
GI: Soft
Extremities: No Edema
Neuro: Other (A&O3, speech clear)
Review of Systems
Review of Systems
notable for subjective, otherwise negative
Orders
Orders
Orders From Last 24 Hours
01/08/24 11:00
Albumin Human 5% 250 ml [Albumin 5%] 12.5 grams in 250 ml INTRACATH 1,666.667 mls/hr
Calcium Gluconate [Calcium Gluconate 10% Injection] 3,250 mg 0.9% Sodium Chloride 250 ml [Nss] 250 ml IV ONCE
Heparin See Dose Instructions INTRACATH ONCE ONE
01/10/24 11:00
Albumin Human 5% 250 ml [Albumin 5%] 12.5 grams in 250 ml INTRACATH 1,666.667 mls/hr
Calcium Gluconate [Calcium Gluconate 10% Injection] 3,250 mg 0.9% Sodium Chloride 250 ml [Nss] 250 ml IV ONCE
Heparin See Dose Instructions INTRACATH ONCE ONE
[2024-01-08] MEDS: CALCIUM GLUCONATE 10% INJECTION 282.5 MG IV (12:09)
[2024-01-08] MEDS: HEPARIN 10000 UNITS INTRACATH (12:10)
--- NOTE | 2024-01-08 14:05 | PTCARENOTE ---
Pt presents as assessed. Aox3. Ambulating in halls. Shai Carnes RN at bedside for plasmapharesis. Care as documented. Call gregory within reach.
--- NOTE | 2024-01-08 14:39 | PTOTSP ---
CONTINUOUS MINER Note
Dypshonia persists. If present after completing PLEX treatment consider ENT consult and OP CONTINUOUS MINER consult for voice evaluation/therapy.
--- NOTE | 2024-01-08 15:58 | PTOTSP ---
Pt is ambulating independently in hallway without need for any assistive device and is able to climb up/down stairs with railing independently. No further acute PT needs at this time. Will sign off.
--- NOTE | 2024-01-08 16:51 | CM ---
Patient transferred back from [facility] with Dx Numbness of bilateral and all extremities - most likely due to an acute demyelinating illness. Receiving plasmapheresis QOD x5 - 4th dose today. PT & OT 01/05
recommend Outpatient Therapy.
Plan home with script for outpatient PT/OT.
[2024-01-08] MEDS: LOVENOX 40 MG SC (18:06)
[2024-01-09] VITALS (12 sets, daily range): BP systolic 93–143; BP diastolic 59–83; BMI 24.8
--- NOTE | 2024-01-09 05:00 | PTCARENOTE ---
NO acute events overnight. Girlfriend at beside participating in care.
[2024-01-09 05:26] LABS: % Basophils 0.2 % (0-2); % Eosinophils 0.2 % (0-6); % Immature Granulocytes 2.1 % (0-0.5); % Lymphocytes 14.6 % (20.5-51.1); % Monocytes 6.5 % (1.7-9.3); % Neutrophils 76.4 % (42.2-75.2); Absolute Immature Granulocytes 0.4 10^3/uL (0-0.05); Absolute Lymphocytes 2.6 10^3/uL (1.2-3.4); Absolute Monocytes 1.1 10^3/uL (0.1-0.6); Absolute Neutrophils 13.4 10^3/uL (1.4-6.5); Hematocrit 37.7 % (39.0-52.0); Mean Corp Hgb Conc. 34.5 g/dL (33.0-37.0); Mean Corpuscular Hgb 30.3 pg (27.0-31.0); Mean Corpuscular Volume 87.9 fL (80.0-94.0); Mean Platelet Volume 9.6 fL (7.4-10.4); Nucleated Red Blood Cells % 0 % (-); Platelet Count 178 10^3/uL (130-400); Red Blood Cell Count 4.29 10^6/uL (4.70-6.10); Red Cell Dist. Width 13.3 % (11.5-14.5); White Blood Cell Count 17.5 10^3/uL (4.8-10.8)
[2024-01-09 05:42] LABS: INR 1.34; PT 16.4 Sec (11.4-14.6)
[2024-01-09 05:48] LABS: Blood Urea Nitrogen 15 mg/dl (9-20); Calcium 9.4 mg/dl (8.4-10.2); Carbon Dioxide 24 mmol/L (22-30); Chloride 105 mmol/L (98-107); Estimated Creatinine Clearance > 125 ml/min; Glucose 100 mg/dl (70-99); Potassium 3.7 mmol/L (3.5-5.1); Sodium 139 mmol/L (135-145); eGFR > 60.00
[2024-01-09 06:09] LABS: Fibrinogen 88 MG/DL (199-459)
--- NOTE | 2024-01-09 06:14 | PTCARENOTE ---
Received call with a critical fibrinogen of 88. teacher physically impaired provider made aware.
--- NOTE | 2024-01-09 07:52 | W.PN.HOSP.TC ---
Today's Communication/Plan
-
see AP
Assessment / Plan
Assessment / Plan
HPI: 33-year-old male with history of psoriasis on Tremfya biologic every 8 weeks (the last time was 3 weeks ago), presented to the hospital complaining of 1 week history of diffuse numbness mostly in the extremities.
Symptoms started in both feet and ascend proximally gradually without any weakness. Also no vision change, chest pain/shortness of breath or any seizure-like activity or syncope.
Overall feels tired and fatigued and progressively getting worse with exertional shortness of breath. Denies any trauma or accident or any head injury. Admits he feels cold with no fever or chills.
No sick contacts or recent travel.
Admit smokes occasionally and uses marijuana occasionally.
Workup in the ER basically showed no acute abnormality, with a CT brain concerning for questionable old subacute lacunar infarct.
A/P:
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
Received methylprednisolone for 5 doses with the last day being December 31, 2023, cont prednisone 60 mg daily with gradual taper over 4 to 6 weeks per neuro
lumbar puncture results noted
Lyme serology negative and CSF PCR negative
Infectious Disease consulted, appreciate their evaluation and recommendations. No antibiotics needed at this time.
TSH WNL at 0.69
Neurology on board
Patient received plasmapheresis via central line- started on 12/31 (first dose), then 01/02 (second dose), then 01/05 (third dose), then 01/07 (fourth dose), with plan for last (fifth) dose 01/09.
Hematology facilitating plasmapheresis
daily coags PT/INR, aPTT, fibrinogen, and CBC
Cont Prednisone: 60 mg x1 week, starting 01/11/24 40mg daily x1 week, 01/18/24 20mg daily x1 week, 01/25/24 10mg daily x1 week, then stop.
Continue Vitamin B12 given level marginally lower at 400
Pt was transferred to [facility] but sent back due to same management per [place]. [place] neurologist recc to complete plasmapheresis for 5 treatments and dispo after that
# Occasional hiccup
Compazine ordered per pt request
# psoriasis
Pt on Tremfya
# Smoking cigarette and marijuana occasionally
UDS negative
Diet: Patient can continue regular diet with thin liquids per speech evaluation
DVT prophylaxis SCDs and Lovenox
Dispo: PT OT eval recc outpt therapy
DW family at bedside
Anticipated Discharge: Within 24 hours
Subjective/Interval History
-
Date of Service: January 09, 2024
Objective Data
-
Labs:
Laboratory Results
01/09/24
05:08
WBC 17.5 H
Hgb 13.0
Hct 37.7 L
Plt Count 178
PT 16.4 H
INR 1.34
APTT 29.0
Sodium 139
Potassium 3.7
Chloride 105
Carbon Dioxide 24
BUN 15
Creatinine 0.6 L
Glucose 100 H
Calcium 9.4
Vital Signs:
Vital Signs
Temp Pulse Resp BP Pulse Ox
36.8 C 70 28 96/68 98
01/09/24 07:00 01/09/24 06:00 01/06/24 18:00 01/09/24 06:00 01/08/24 19:30
I&O
01/08/24 01/09/24 01/10/24
06:59 06:59 06:59
Intake Total 1200 / 1200 480 / 480
Balance 1200 / 1200 480 / 480
Review of Systems
-
All other systems: Reviewed and negative
Physical Exam
-
General: Well Developed, Well Nourished, No Apparent Distress, Comfortable and Conversant; Negative Respiratory Distress
HEENT: Normocephalic, Atraumatic, Nose Appears Normal and Ears Appear Normal; Negative Oxygen
Respiratory: Clear to Auscultation and Non Labored Respirations; Negative Accessory Resp Muscle Use
Cardiac: Regular Rhythm and S1/S2
GI: Soft, Nontender, Nondistended and Normal Bowel Sounds
Skin: Warm and Dry
Neuro: Awake, Alert and Oriented
Psych: Calm and Intact Judgement/Insight
Data Reviewed
-
CT Scan: Report Reviewed by me
MRI: Report Reviewed by me
Labs: Labs Reviewed by me
[2024-01-09] MEDS: DELTASONE 60 MG PO (08:12)
[2024-01-09] MEDS: VITAMIN B-12 1000 MCG PO (08:12)
--- NOTE | 2024-01-09 10:21 | W.PN.ONC ---
Today's Communication / Plan
-
cont pheresis as recommended by neurology - every other day x5; 01/09 will be 5th/final treatment
Will give cryoppt today for fibrinogen < 100, repeat in am and re-dose if needed, denies bleeding
follow daily PT/INR, aPTT, and fibrinogen as well as CBC
Mgmt of steroids per neurology
Likely d/c tomorrow after PLEX and catheter removal
Impression
Impression
1. Demyelinating neurologic process
Plan
Plan
cont pheresis as recommended by neurology - every other day x5; 01/09 will be 5th/final treatment
Will give cryoppt today for fibrinogen < 100, repeat in am and re-dose if needed, denies bleeding
follow daily PT/INR, aPTT, and fibrinogen as well as CBC
Mgmt of steroids per neurology
Likely d/c tomorrow after PLEX and catheter removal
Subjective/Objective
Subjective/Objective
No new complaints, tolerating PLEX well, strength slowly improving. No bleeding.
Vital Signs:
Vital Signs
Temp Pulse Resp BP Pulse Ox
98.2 F 70 28 96/68 98
01/09/24 07:00 01/09/24 06:00 01/06/24 18:00 01/09/24 06:00 01/08/24 19:30
Lab Results:
Laboratory Data
WBC 17.5 10^3/uL (4.8-10.8) H 01/09/24 05:08
Hgb 13.0 g/dL (13.0-18.0) 01/09/24 05:08
Plt Count 178 10^3/uL (130-400) 01/09/24 05:08
PT 16.4 Sec (11.4-14.6) H 01/09/24 05:08
INR 1.34 01/09/24 05:08
APTT 29.0 Sec (23.4-35.0) 01/09/24 05:08
eGFR > 60.00 01/09/24 05:08
Orders
Orders
Orders From Last 24 Hours
01/09/24 10:15
* Blood Bank Products Routine
[2024-01-09] MEDS: LOVENOX 40 MG SC (17:35)
[2024-01-10] VITALS (12 sets, daily range): BP systolic 105–136; BP diastolic 67–88; BMI 24.7
--- NOTE | 2024-01-10 05:27 | W.PN.NEURO.1 ---
Today's Communication / Plan
-
Continue plasmapheresis
May discharge home on Prednisone taper 40mg x 1 week, 20mg X1 week, 10 mg for one week
Neuro Assessment/Plan
Assessment
33-year-old male with history of psoriasis on Tremfya and occasional marijuana use who was admitted with new onset generalized numbness, unsteadiness, and speech changes with demyelination on MRI imaging. Preceded by upper respiratory tract illness
and a dog bite approximately 2 weeks prior to development of neurological symptoms. Based on the nature of the lesions, timeframe, and mildly elevated WBC count, negative oligoclonal bands; consistent with acute demyelinating encephalomyelitis..
Plan
-Continue PLEX, day 4/5 treatment..
-Continue gradual steroid taper; 60mg Prednisone daily this week, starting 01/11/24 40mg daily x1 week. 01/18/24 20mg daily x1 week. 01/25/24 10mg daily x1 week, then stop.
-PT/OT/ST evaluations.
-DVT prophylaxis.
-Patient will need outpatient follow-up with an MS specialist at [facility] as an outpatient.
Subjective/Objective
Subjective Data
Date of Service: January 09, 2024
Pat continues to do well. No difficulty swallowing. No weakness. Numbness of face, torso and extremities persists
Objective Data
Vital Signs
Temp Pulse Resp BP Pulse Ox
36.8 C 70 28 96/68 98
01/09/24 07:00 01/09/24 06:00 01/06/24 18:00 01/09/24 06:00 01/08/24 19:30
PT 16.4 Sec (11.4-14.6) H 01/09/24 05:08
INR 1.34 01/09/24 05:08
APTT 29.0 Sec (23.4-35.0) 01/09/24 05:08
Sodium 139 mmol/L (135-145) 01/09/24 05:08
Potassium 3.7 mmol/L (3.5-5.1) 01/09/24 05:08
BUN 15 mg/dl (9-20) 01/09/24 05:08
Glucose 100 mg/dl (70-99) H 01/09/24 05:08
Calcium 9.4 mg/dl (8.4-10.2) 01/09/24 05:08
Patient Allergies
No Known Allergies Allergy (Verified 12/26/23 16:25)
Physical Exam
-
General: Well Developed, Well Nourished and Comfortable
Eyes: Unremarkable and No Ptosis
HEENT: Normocephalic, Atraumatic and Anicteric
Neck: No Bruits Bilaterally and Full Range of Motion
Respiratory: Clear to Auscultation
Cardiac: Regular Rhythm, No Murmur and S1/S2
GI: Normal Bowel Sounds and Soft
Skin: Unremarkable
Extremities: No Clubbing, No Cyanosis and Edema +1
Psych: Other (Decreased insight)
Extended Neurological Exam
Mood & Affect: Mood Unremarkable and Affect Unremarkable
Attention Span & Concentration: Awake, Alert, Interactive and No Difficulty with 2 Step Request
Memory: Able to Recall
Tremor: Hand Tremor Absent and Head Tremor Absent
Involuntary Movement: None
Speech: Quality Unremarkable and Quantity Unremarkable
Cranial Nerve II: Left Eye: Pupillary Reactivity Unremarkable, Pupillary Size Unremarkable and Visual Vzáquez Grossly Intact
Cranial Nerve II: Right Eye: Pupillary Reactivity Unremarkable, Pupillary Size Unremarkable and Visual Vázquez Grossly Intact
Cranial Nerves III, IV, : Extraocular Movement: Extraocular Movement Full in all Directions
Cranial Nerve V: Facial Sensation: Facial Sensation Unremarkable to Cold, Intact to Pin Prick and Intact to Light Touch
Cranial Nerve VII: Facial Symmetry: Normal Facial Symmetry
Cranial Nerve VIII: Hearing: Unremarkable Hearing to Normal Conversational Volume
Cranial Nerves IX, X: Palate Movement: Palate Elevation Symmetric
Cranial Nerve XI: Shoulder Shrug: Unremarkable
Cranial Nerve XII: Tongue Protusion: Midline
Muscle Strength, Overall: Full Throughout
Muscle Bulk & Tone: Bulk Unremarkable and Tone Unremarkable
Pronator Drift: No Drift in Upper Extremities and No Drift in Lower Extremities
Deep Tendon Reflexes: Trace Throughout
Cold Sensation: Testing in Upper Extremities and Unremarkable
Vibration Sensation: Testing in Upper Extremities and Unremarkable
Touch Sensation: Testing in Upper Extremities and Unremarkable
Coordination: Tpitaz-drfz-ubhnyl Testing Unremarkable and Reaches for Objects without Difficulty
Babinski Sign: Absent Bilaterally
Gait & Station: Up from Seated Without Problem and Up from Lying with Difficulty
[2024-01-10 05:59] LABS: % Basophils 0.1 % (0-2); % Eosinophils 0.4 % (0-6); % Immature Granulocytes 1.9 % (0-0.5); % Lymphocytes 16.9 % (20.5-51.1); % Monocytes 7.3 % (1.7-9.3); % Neutrophils 73.4 % (42.2-75.2); Absolute Eosinophils 0.1 10^3/uL (0-0.7); Absolute Immature Granulocytes 0.3 10^3/uL (0-0.05); Absolute Lymphocytes 2.4 10^3/uL (1.2-3.4); Absolute Monocytes 1.1 10^3/uL (0.1-0.6); Absolute Neutrophils 10.6 10^3/uL (1.4-6.5); Hematocrit 36.8 % (39.0-52.0); Hemoglobin 12.8 g/dL (13.0-18.0); Mean Corp Hgb Conc. 34.8 g/dL (33.0-37.0); Mean Corpuscular Hgb 30.5 pg (27.0-31.0); Mean Corpuscular Volume 87.6 fL (80.0-94.0); Mean Platelet Volume 9.5 fL (7.4-10.4); Nucleated Red Blood Cells % 0 % (-); Platelet Count 177 10^3/uL (130-400); Red Cell Dist. Width 13.4 % (11.5-14.5); White Blood Cell Count 14.5 10^3/uL (4.8-10.8)
[2024-01-10 06:07] LABS: INR 1.09; PT 13.9 Sec (11.4-14.6)
[2024-01-10 06:08] LABS: APTT 26.6 Sec (23.4-35.0); Fibrinogen 156 MG/DL (199-459)
--- NOTE | 2024-01-10 06:16 | PTCARENOTE ---
No acute events overnight. Plan for last plasmapheresis today.
[2024-01-10 06:21] LABS: Blood Urea Nitrogen 17 mg/dl (9-20); Calcium 9.3 mg/dl (8.4-10.2); Carbon Dioxide 27 mmol/L (22-30); Chloride 104 mmol/L (98-107); Estimated Creatinine Clearance > 125 ml/min; Glucose 85 mg/dl (70-99); Potassium 3.8 mmol/L (3.5-5.1); Sodium 138 mmol/L (135-145); eGFR > 60.00
--- NOTE | 2024-01-10 07:43 | W.PN.HOSP.TC ---
Addendum entered and electronically signed by Christie Sharpe MD 01/10/24 13:38:
total DC time 36 min
Original Note:
Today's Communication/Plan
-
see A/P
Assessment / Plan
Assessment / Plan
HPI: 33-year-old male with history of psoriasis on Tremfya biologic every 8 weeks (the last time was 3 weeks ago), presented to the hospital complaining of 1 week history of diffuse numbness mostly in the extremities.
Symptoms started in both feet and ascend proximally gradually without any weakness. Also no vision change, chest pain/shortness of breath or any seizure-like activity or syncope.
Overall feels tired and fatigued and progressively getting worse with exertional shortness of breath. Denies any trauma or accident or any head injury. Admits he feels cold with no fever or chills.
No sick contacts or recent travel.
Admit smokes occasionally and uses marijuana occasionally.
Workup in the ER basically showed no acute abnormality, with a CT brain concerning for questionable old subacute lacunar infarct.
A/P:
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
Received methylprednisolone for 5 doses with the last day being December 31, 2023, cont prednisone 60 mg daily with gradual taper over 4 to 6 weeks per neuro
lumbar puncture results noted
Lyme serology negative and CSF PCR negative
Infectious Disease consulted, appreciate their evaluation and recommendations. No antibiotics needed at this time.
TSH WNL at 0.69
Neurology on board
Patient received plasmapheresis via central line- started on 12/31 (first dose), then 01/02 (second dose), then 01/05 (third dose), then 01/07 (fourth dose), with plan for last (fifth) dose 01/09.
Hematology facilitating plasmapheresis
daily coags PT/INR, aPTT, fibrinogen, and CBC
Cont Prednisone: 60 mg x1 week, starting 01/11/24 40mg daily x1 week, 01/18/24 20mg daily x1 week, 01/25/24 10mg daily x1 week, then stop.
Continue Vitamin B12 given level marginally lower at 400
Pt was transferred to [facility] but sent back due to same management per [place]. [place] neurologist recc to complete plasmapheresis for 5 treatments and dispo after that
# Occasional hiccup
Compazine ordered per pt request
# psoriasis
Pt on Tremfya
# Smoking cigarette and marijuana occasionally
UDS negative
Diet: Patient can continue regular diet with thin liquids per speech evaluation
DVT prophylaxis SCDs and Lovenox
Dispo: PT OT eval recc outpt therapy
DW family at bedside
Anticipated Discharge: Within 24 hours
Subjective/Interval History
-
Date of Service: January 10, 2024
Objective Data
-
Labs:
Laboratory Results
01/10/24 01/10/24
05:43 05:44
WBC 14.5 H
Hgb 12.8 L
Hct 36.8 L
Plt Count 177
PT 13.9
INR 1.09
APTT 26.6
Sodium 138
Potassium 3.8
Chloride 104
Carbon Dioxide 27
BUN 17
Creatinine 0.7
Glucose 85
Calcium 9.3
Vital Signs:
Vital Signs
Temp Pulse Resp BP Pulse Ox
36.6 C 75 18 117/74 97
01/10/24 03:10 01/10/24 02:00 01/09/24 13:33 01/10/24 02:00 01/09/24 19:13
I&O
01/09/24 01/10/24 01/11/24
06:59 06:59 06:59
Intake Total 480 / 480 609 / 609
Balance 480 / 480 609 / 609
Review of Systems
-
All other systems: Reviewed and negative
Physical Exam
-
General: Well Developed, Well Nourished, No Apparent Distress, Comfortable and Conversant; Negative Respiratory Distress
HEENT: Normocephalic, Atraumatic, Nose Appears Normal and Ears Appear Normal; Negative Oxygen
Respiratory: Clear to Auscultation and Non Labored Respirations; Negative Accessory Resp Muscle Use
Cardiac: Regular Rhythm and S1/S2
GI: Soft, Nontender, Nondistended and Normal Bowel Sounds
Skin: Warm and Dry
Neuro: Awake, Alert and Oriented
Psych: Calm and Intact Judgement/Insight
Data Reviewed
-
CT Scan: Report Reviewed by me
MRI: Report Reviewed by me
Labs: Labs Reviewed by me
[2024-01-10] MEDS: DELTASONE 60 MG PO (08:35)
[2024-01-10] MEDS: VITAMIN B-12 1000 MCG PO (08:35)
--- NOTE | 2024-01-10 11:41 | CM ---
Addendum entered by Alta Sanchez 01/10/24 15:00:
Call from sister
While on phone, walked through provider list
She was able to locate on website
Directions for arranging outpatient therapy provided
Original Note:
CM reviewed chart and noted dc order
Bedside meeting with pt
Outpatient therapy recommended
Pt with limited provider insurance policy
CM attempt to print outpatient therapy provider list from [employer] website
CM unable to access list for his specific plan
CM attempted call to [employer] for provider list [phone]- closed on weekends
Pt does not habe his username or password for his [employer] portal
Deferred discussion to his sister/Vanessa who has his username and password
VM left for Vanessa [phone] to discuss provider list lookup on patient portal
Asked for mallika back if she needs additional assistance with identifying in-network therapy provider
TT/speech therapy- plan for ENT follow up on dc, outpatient [facility] services does not need to be arranged at this time on dc
TT/Dr Sharpe requesting script for outpatient therapy
Discharge Disposition- home with outpatient PT/OT
--- NOTE | 2024-01-10 13:24 | W.DCSUMMARY ---
Discharge Summary
Discharge Data
Date of Admission: 01/05/24
Date of Discharge: 01/10/24
-
Pending Results: No
Hospital Course
Principal Diagnosis:
Numbness of all 4 extremities, due to acute demyelinating illness/acute disseminating encephalomyelitis
Chronic Diagnoses:�
Psoriasis on Tremfya outpatient
Consultations:�
Neurology
Hematology
Procedures:�
None this admission
Clinical course:�
This is a 33-year-old male with history of psoriasis on Tremfya biologic every 8 weeks, who presented with diffuse numbness of all of his extremities.
He received IV steroid and was started with plasmapheresis during his admission at . He was transferred to [facility] and was sent back due to the management being the same without additional change.
Problem 1:
Numbness of all 4 extremities, due to acute demyelinating illness/acute disseminating encephalomyelitis.
Upon return to [facility] from [facility], the patient continued to receive plasmapheresis doses 3, 4, and 5 with the last dose ending on 01/10/2024.
He received oral prednisone 60 mg daily while in the hospital, and he can continue with prednisone 40 mg starting 01/11/2024 for 1 week, then 20 mg for another week, then 10 mg for 1 week, then stop.
He has been informed to follow-up with outpatient neurology closely following discharge.
As for the rest of his medical problems, they were stable during his hospital stay.
Discharge Plan
-
Patient Disposition: Home (Routine Discharge)
Discharge Diagnosis/Procedures: Numbness of bilateral and all extremities due to acute demyelinating illness/acute disseminating encephalomyelitis; history of psoriasis on Tremfya
Condition: Fair
Diet: As tolerated
Activity: As tolerated
Referrals:
UNKNOWN - PT DOES,NOT KNOW [Family Provider] - in less than 1 week
Additional Discharge Medication Instructions: Continue prednisone as follow: 40mg daily x1 week, then 20mg daily x1 week, then 10mg daily x1 week, then stop.
Prescriptions:
New
cyanocobalamin (vitamin B-12) 1,000 mcg Tablet
1,000 mcg PO DAILY Qty: 30 0RF
prednisone 10 mg Tablet
See Rx Instructions .ROUTE .COMPLEX Qty: 55 0RF
Rx Instructions:
40 mg daily x7 days, 20 mg daily x7 days, 10 mg daily x7 days, then stop
Continued
Tremfya 100 mg/mL auto-injector
100 mg SC Q8W
Discharge Orders:
Discharge Patient (As Directed); Ordered 01/10/24
Ordered By: Christie Sharpe
Discharge Date and Time
Print Language: COLOMBIAN
[2024-01-10] MEDS: CALCIUM GLUCONATE 10% INJECTION 282.5 MG IV (16:27)
--- NOTE | 2024-01-10 17:17 | PTCARENOTE ---
Discharge instructions reviewed with patient and his mother. Patient was made aware Prescriptions were sent to [facility]. Reviewed Prednisone taper instructions with patient and parent. A script for PT/OT was given to the patient. [facility] is
administering PLEX at present.
[2024-01-10] MEDS: LOVENOX SC (18:33)
== END 2024-01-10 19:45 | disposition home or self-care (01) | DRG 99 ==
LOC: IMU 19:58
PROVIDERS: Internal Medicine; Nurse Practitioner Acute Care; Nurse Practitioner Family; ADMITTING PHYSICIAN Internal Medicine; CONSULT PHYSICIAN Psychiatry & Neurology Neurology; OTHER PHYSICIAN Internal Medicine Hematology & Oncology
PROC: 6A551Z3 Pheresis of Plasma, Multiple (ICD-10-PCS; 2024-01-06)
PROC: 30233M1 Transfusion of Nonautologous Plasma Cryoprecipitate into Peripheral Vein, Percutaneous Approach (ICD-10-PCS; 2024-01-09)
DX: G04.00 Acute disseminated encephalitis and encephalomyelitis, unspecified (principal); L40.9 Psoriasis, unspecified; F12.90 Cannabis use, unspecified, uncomplicated; G35 Multiple sclerosis; F17.210 Nicotine dependence, cigarettes, uncomplicated; R20.0 Anesthesia of skin; Z86.73 Personal history of transient ischemic attack (TIA), and cerebral infarction without residual deficits; Z79.69 Long term (current) use of other immunomodulators and immunosuppressants
CPT/HCPCS: 80048; 83735; 85025; 85027; 85384; 85610; 85730; 86850; 86900; 86901; 92610; 97162; 97166; 97530; P9012; P9045